=== PATIENT | male | born 1945 | race Caucasian/White ===

== ENCOUNTER 2017-09-23 10:16 | Inpatient (IN) | END 2017-09-25 07:31 | disposition short-term general hospital (02) | DRG 281 ==

== ENCOUNTER 2017-10-23 10:30 | Emergency (ER) | payer OTHER, MEDICARE ==
[~2017-10-23] VITALS: Ht 172.7 cm; Wt 161.0 kg
[~2017-10-23 10:30] MED LIST: AMLO10 PO; BENA20 PO; CLON.2TP PO; FARXIGA10 MG PO; FURO40 PO; Fish Oil300 MG PO; INSDET100 SC; INSLI100I SC; LIRA0.6P SC; METF850 PO; METO50 PO; Novolog Fl100 UNIT/1 SC; POTCIT10 PO; Paxil40 MG PO; Pravastatin Sod80 MG PO; SPIR50 PO; VITAMIN D35000 UNIT PO
[2017-10-23] MEDS ORDERED: ASPI81CH PO (10:39)
[2017-10-23] MEDS ORDERED: Fergon240 M1 (10:40)
[2017-10-23] MEDS ORDERED: ATOR80 PO (10:40)
[2017-10-23] MEDS ORDERED: NIFE60ER PO (10:41)
[2017-10-23] MEDS ORDERED: FURO80 PO (10:41)
[2017-10-23] MEDS ORDERED: CLOP75 PO (10:41)
[2017-10-23] MEDS ORDERED: METO2.5 PO (10:42)
[2017-10-23] MEDS ORDERED: CLON.1 PO (10:43)
[2017-10-23] MEDS ORDERED: CEFAZOLIN2 GM/50 ML IV (10:44)
[2017-10-23] MEDS ORDERED: Novolog100 UNIT/2 SC (10:44)
[2017-10-23] MEDS ORDERED: TRAM50 PO (10:45)
[2018-06-06] MEDS ORDERED: Nystatin15 GM TOP (16:25)
== END 2017-10-23 13:49 | disposition home or self-care (01) ==
LOC: ER 10:30
DX: Z02.89 Encounter for other administrative examinations (principal); E11.9 Type 2 diabetes mellitus without complications; R53.81 Other malaise; Z79.82 Long term (current) use of aspirin; Z79.899 Other long term (current) drug therapy; Z79.4 Long term (current) use of insulin; Z87.891 Personal history of nicotine dependence
CPT/HCPCS: 96361; 96374; 99283; J0690; J7030

== ENCOUNTER 2017-11-01 21:57 | Inpatient (IN) | payer OTHER, MEDICARE ==
[~2017-11-01] VITALS: Ht 172.7 cm; Wt 162.8 kg
[~2017-11-01 21:57] MED LIST changes: +ASPI81CH PO; +ATOR80 PO; +CEFAZOLIN2 GM/50 ML IV; +CLON.1 PO; +CLOP75 PO; +FURO80 PO; +Fergon240 M1; +METO100ER PO; +METO2.5 PO; -METO50 PO; +NIFE60ER PO; +Novolog100 UNIT/2 SC; +TRAM50 PO
[2017-11-01 22:33] LABS: BASOPHILS ABSOLUTE AUTO 0.04 K/mm3 (0.00-0.23); BASOPHILS PERCENT AUTO 0 % (0-2); EOSINOPHILS ABSOLUTE AUTO 0.14 K/mm3 (0.00-0.68); EOSINOPHILS PERCENT AUTO 1 % (0-6); Hematocrit 25.6 % (37.0-53.0); Hemoglobin 7.9 g/dL (13.5-17.5); IMMATURE GRAN ABSOLUTE AUTO 0.11 K/mm3 (0.00-0.10); IMMATURE GRAN PERCENT AUTO 1 % (0-1); LYMPHOCYTES ABSOLUTE AUTO 0.85 K/mm3 (0.84-5.20); LYMPHOCYTES PERCENT AUTO 6 % (21-46); MONOCYTES ABSOLUTE AUTO 1.56 K/mm3 (0.16-1.47); MONOCYTES PERCENT AUTO 11 % (4-13); Mean Corpuscular HGB Conc 30.9 g/dL (31.5-36.5); Mean Corpuscular Volume 91 fL (80-100); Mean Platelet Volume 10.3 fL (9.1-12.4); NEUTROPHILS ABSOLUTE AUTO 11.45 K/mm3 (1.96-9.15); NEUTROPHILS PERCENT AUTO 81 % (41-73); Platelet Count 381 K/mm3 (150-400); RDW Coefficient Variation 14.5 % (11.7-14.2); RDW Standard Deviation 47.8 fL (35.1-46.3); Red Blood Cell Count 2.82 M/mm3 (4.30-5.90); White Blood Cell Count 14.15 K/mm3 (4.00-11.30)
[2017-11-01 22:54] LABS: Albumin, Blood 2.2 g/dL (3.4-5.0); Albumin/Globulin Ratio 0.4 (0.8-1.8); Bilirubin, Total 0.3 mg/dL (0.1-1.0); Bun/Creatinine Ratio 42.5 (12.0-20.0); Calcium, Blood 8.3 mg/dL (8.5-10.1); Creatinine, Blood 1.6 mg/dL (0.60-1.20); Globulin, Blood 5.5 g/dL (2.2-4.0); Potassium, Blood 4.6 mmol/L (3.5-5.5); Total Protein, Blood 7.7 g/dL (6.4-8.2); Troponin I 0.119 ng/mL (0.000-0.040)
[2017-11-01 23:16] LABS: PCO2 Arterial 37.1 mmHg (35-45); PO2 Arterial 88.8 mmHg (80-100); pH Blood Arterial 7.46 (7.35-7.45)
[2017-11-01 23:16] LABS: International Normalized Ratio 1.17; Prothrombin Time Results 12.2 Sec (9.7-11.5)
[2017-11-01] MEDS ORDERED: TRAM50 PO (23:25)
[2017-11-02 06:20] LABS: BASOPHILS ABSOLUTE AUTO 0.03 K/mm3 (0.00-0.23); BASOPHILS PERCENT AUTO 0 % (0-2); EOSINOPHILS ABSOLUTE AUTO 0.05 K/mm3 (0.00-0.68); EOSINOPHILS PERCENT AUTO 0 % (0-6); Hematocrit 24.1 % (37.0-53.0); Hemoglobin 7.6 g/dL (13.5-17.5); IMMATURE GRAN ABSOLUTE AUTO 0.06 K/mm3 (0.00-0.10); IMMATURE GRAN PERCENT AUTO 1 % (0-1); LYMPHOCYTES ABSOLUTE AUTO 0.77 K/mm3 (0.84-5.20); LYMPHOCYTES PERCENT AUTO 7 % (21-46); MONOCYTES ABSOLUTE AUTO 1.33 K/mm3 (0.16-1.47); MONOCYTES PERCENT AUTO 12 % (4-13); Mean Corpuscular HGB 28.6 pg (26.0-34.0); Mean Corpuscular HGB Conc 31.5 g/dL (31.5-36.5); Mean Corpuscular Volume 91 fL (80-100); Mean Platelet Volume 10.4 fL (9.1-12.4); NEUTROPHILS PERCENT AUTO 81 % (41-73); Platelet Count 306 K/mm3 (150-400); RDW Coefficient Variation 14.6 % (11.7-14.2); RDW Standard Deviation 48.1 fL (35.1-46.3); Red Blood Cell Count 2.66 M/mm3 (4.30-5.90); White Blood Cell Count 11.44 K/mm3 (4.00-11.30)
[2017-11-02 06:42] LABS: Albumin, Blood 1.9 g/dL (3.4-5.0); Albumin/Globulin Ratio 0.4 (0.8-1.8); Bilirubin, Total 0.3 mg/dL (0.1-1.0); Bun/Creatinine Ratio 37.9 (12.0-20.0); Calcium, Blood 8.1 mg/dL (8.5-10.1); Creatinine, Blood 1.74 mg/dL (0.60-1.20); Globulin, Blood 5.2 g/dL (2.2-4.0); Potassium, Blood 4.7 mmol/L (3.5-5.5); Total Protein, Blood 7.1 g/dL (6.4-8.2)
[2017-11-02 07:34] LABS: Troponin I 0.096 ng/mL (0.000-0.040)
[2017-11-02 16:26] LABS: Troponin I 0.071 ng/mL (0.000-0.040)
[2017-11-02 17:31] LABS: Source, Urine Clean Catch
[2017-11-02 17:36] LABS: Appearance, Urine Clear (Clear); Bilirubin, Urine Neg (Neg); Blood, Urine 2+ (Neg); Color, Urine Yellow (P-Yellow); Glucose Qualitative, Urine Neg (Neg); Ketones, Urine Neg (Neg); Leukocyte Esterase, Urine 1+ (Neg); Nitrite, Urine Neg (Neg); Protein, Urine 3+ (Neg); Specific Gravity, Urine 1.015 (1.003-1.022); Urobilinogen, Urine NORM (Normal)
[2017-11-02 17:44] LABS: Bacteria Few /hpf; Red Blood Cells, Urine 0-2 /hpf (0-2); Squamous Epithelial Cells Not Seen /hpf (Few); White Blood Cells, Urine 0-2 /hpf (0-5)
[2017-11-03 04:59] LABS: BASOPHILS ABSOLUTE AUTO 0.02 K/mm3 (0.00-0.23); BASOPHILS PERCENT AUTO 0 % (0-2); EOSINOPHILS ABSOLUTE AUTO 0.17 K/mm3 (0.00-0.68); EOSINOPHILS PERCENT AUTO 1 % (0-6); Hematocrit 23.4 % (37.0-53.0); Hemoglobin 7.1 g/dL (13.5-17.5); IMMATURE GRAN ABSOLUTE AUTO 0.08 K/mm3 (0.00-0.10); IMMATURE GRAN PERCENT AUTO 1 % (0-1); LYMPHOCYTES ABSOLUTE AUTO 0.74 K/mm3 (0.84-5.20); LYMPHOCYTES PERCENT AUTO 6 % (21-46); MONOCYTES ABSOLUTE AUTO 1.43 K/mm3 (0.16-1.47); MONOCYTES PERCENT AUTO 12 % (4-13); Mean Corpuscular HGB Conc 30.3 g/dL (31.5-36.5); Mean Corpuscular Volume 92 fL (80-100); Mean Platelet Volume 10.5 fL (9.1-12.4); NEUTROPHILS ABSOLUTE AUTO 9.47 K/mm3 (1.96-9.15); NEUTROPHILS PERCENT AUTO 80 % (41-73); Platelet Count 311 K/mm3 (150-400); RDW Coefficient Variation 14.6 % (11.7-14.2); RDW Standard Deviation 49.1 fL (35.1-46.3); Red Blood Cell Count 2.54 M/mm3 (4.30-5.90); White Blood Cell Count 11.91 K/mm3 (4.00-11.30)
[2017-11-03 05:17] LABS: Albumin, Blood 1.9 g/dL (3.4-5.0); Albumin/Globulin Ratio 0.4 (0.8-1.8); Bilirubin, Total 0.5 mg/dL (0.1-1.0); Bun/Creatinine Ratio 30.4 (12.0-20.0); Calcium, Blood 8.4 mg/dL (8.5-10.1); Creatinine, Blood 2.4 mg/dL (0.60-1.20); Potassium, Blood 4.7 mmol/L (3.5-5.5); Total Protein, Blood 6.9 g/dL (6.4-8.2)
[2017-11-04 02:54] LABS: BASOPHILS ABSOLUTE AUTO 0.03 K/mm3 (0.00-0.23); BASOPHILS PERCENT AUTO 0 % (0-2); EOSINOPHILS ABSOLUTE AUTO 0.16 K/mm3 (0.00-0.68); EOSINOPHILS PERCENT AUTO 1 % (0-6); Hematocrit 22.6 % (37.0-53.0); Hemoglobin 7.2 g/dL (13.5-17.5); IMMATURE GRAN ABSOLUTE AUTO 0.04 K/mm3 (0.00-0.10); IMMATURE GRAN PERCENT AUTO 0 % (0-1); LYMPHOCYTES ABSOLUTE AUTO 0.91 K/mm3 (0.84-5.20); LYMPHOCYTES PERCENT AUTO 8 % (21-46); MONOCYTES ABSOLUTE AUTO 1.16 K/mm3 (0.16-1.47); MONOCYTES PERCENT AUTO 10 % (4-13); Mean Corpuscular HGB 28.9 pg (26.0-34.0); Mean Corpuscular HGB Conc 31.9 g/dL (31.5-36.5); Mean Corpuscular Volume 91 fL (80-100); Mean Platelet Volume 10.6 fL (9.1-12.4); NEUTROPHILS ABSOLUTE AUTO 8.83 K/mm3 (1.96-9.15); NEUTROPHILS PERCENT AUTO 79 % (41-73); Platelet Count 283 K/mm3 (150-400); RDW Coefficient Variation 14.6 % (11.7-14.2); RDW Standard Deviation 48.2 fL (35.1-46.3); Red Blood Cell Count 2.49 M/mm3 (4.30-5.90); White Blood Cell Count 11.13 K/mm3 (4.00-11.30)
[2017-11-04 03:11] LABS: Bun/Creatinine Ratio 30.5 (12.0-20.0); Calcium, Blood 8.4 mg/dL (8.5-10.1); Creatinine, Blood 2.66 mg/dL (0.60-1.20); Potassium, Blood 4.8 mmol/L (3.5-5.5)
[2017-11-04 11:17] LABS: Hematocrit 26.4 % (37.0-53.0); Hemoglobin 8.3 g/dL (13.5-17.5)
[2017-11-05 00:20] LABS: Hematocrit 27.6 % (37.0-53.0); Hemoglobin 8.9 g/dL (13.5-17.5)
[2017-11-05 04:36] LABS: BASOPHILS ABSOLUTE AUTO 0.02 K/mm3 (0.00-0.23); BASOPHILS PERCENT AUTO 0 % (0-2); EOSINOPHILS ABSOLUTE AUTO 0.03 K/mm3 (0.00-0.68); EOSINOPHILS PERCENT AUTO 0 % (0-6); Hematocrit 25.1 % (37.0-53.0); IMMATURE GRAN ABSOLUTE AUTO 0.06 K/mm3 (0.00-0.10); IMMATURE GRAN PERCENT AUTO 1 % (0-1); LYMPHOCYTES ABSOLUTE AUTO 0.44 K/mm3 (0.84-5.20); LYMPHOCYTES PERCENT AUTO 4 % (21-46); MONOCYTES ABSOLUTE AUTO 0.95 K/mm3 (0.16-1.47); MONOCYTES PERCENT AUTO 8 % (4-13); Mean Corpuscular HGB 28.5 pg (26.0-34.0); Mean Corpuscular HGB Conc 31.9 g/dL (31.5-36.5); Mean Corpuscular Volume 89 fL (80-100); Mean Platelet Volume 10.4 fL (9.1-12.4); NEUTROPHILS ABSOLUTE AUTO 11.02 K/mm3 (1.96-9.15); NEUTROPHILS PERCENT AUTO 88 % (41-73); Platelet Count 274 K/mm3 (150-400); RDW Coefficient Variation 14.7 % (11.7-14.2); RDW Standard Deviation 48.3 fL (35.1-46.3); Red Blood Cell Count 2.81 M/mm3 (4.30-5.90); White Blood Cell Count 12.52 K/mm3 (4.00-11.30)
[2017-11-05 04:55] LABS: Bun/Creatinine Ratio 31.4 (12.0-20.0); Calcium, Blood 8.5 mg/dL (8.5-10.1); Creatinine, Blood 2.87 mg/dL (0.60-1.20); Potassium, Blood 4.9 mmol/L (3.5-5.5)
== END 2017-11-05 22:25 | disposition short-term general hospital (02) | DRG 291 ==
LOC: ER 21:57 → ERHOLD 23:05 → PCU 23:05
PROVIDERS: Emergency Medicine; Family Medicine; Internal Medicine
PROC: 30233N1 Transfusion of Nonautologous Red Blood Cells into Peripheral Vein, Percutaneous Approach (ICD-10-PCS; principal; 2017-11-03)
DX: I13.0 Hypertensive heart and chronic kidney disease with heart failure and stage 1 through stage 4 chronic kidney disease, or unspecified chronic kidney disease (principal); I50.43 Acute on chronic combined systolic (congestive) and diastolic (congestive) heart failure; J96.21 Acute and chronic respiratory failure with hypoxia; N17.9 Acute kidney failure, unspecified; Z68.43 Body mass index [BMI] 50.0-59.9, adult; N13.8 Other obstructive and reflux uropathy; N18.3 Chronic kidney disease, stage 3 (moderate); I25.10 Atherosclerotic heart disease of native coronary artery without angina pectoris; Z98.61 Coronary angioplasty status; Z89.431 Acquired absence of right foot; E66.01 Morbid (severe) obesity due to excess calories; G47.33 Obstructive sleep apnea (adult) (pediatric); D63.1 Anemia in chronic kidney disease; I25.5 Ischemic cardiomyopathy; E11.22 Type 2 diabetes mellitus with diabetic chronic kidney disease; Z79.4 Long term (current) use of insulin; Z79.82 Long term (current) use of aspirin
CPT/HCPCS: 36415; 36430; 36600; 51700; 51702; 71045; 74176; 76770; 80048; 80053; 81001; 82550; 82803; 82947; 83605; 83880; 84145; 84484; 85014; 85018; 85025; 85610; 85730; 86850; 86900; 86901; 86923; 87040; 87086; 93005; 93010; 93306; 94640; 94660; 94762; 96365; 96366; 96372; 96375; 96376; 97110; 97161; 99285; G8978; G8979; J0690; J1650; J1815; J1940; J1956; J2060; J2543; J3010; J7030; P9016

== ENCOUNTER 2017-11-25 16:08 | Inpatient (IN) | payer OTHER, MEDICARE ==
[~2017-11-25] VITALS: Ht 172.7 cm; Wt 152.5 kg
[~2017-11-25 16:08] MED LIST changes: -METO100ER PO; +METO50 PO
[2017-11-25 17:14] LABS: BASOPHILS ABSOLUTE AUTO 0.04 K/mm3 (0.00-0.23); BASOPHILS PERCENT AUTO 0 % (0-2); EOSINOPHILS PERCENT AUTO 2 % (0-6); Hematocrit 27.6 % (37.0-53.0); Hemoglobin 8.4 g/dL (13.5-17.5); IMMATURE GRAN ABSOLUTE AUTO 0.04 K/mm3 (0.00-0.10); IMMATURE GRAN PERCENT AUTO 0 % (0-1); LYMPHOCYTES ABSOLUTE AUTO 0.72 K/mm3 (0.84-5.20); LYMPHOCYTES PERCENT AUTO 7 % (21-46); MONOCYTES ABSOLUTE AUTO 0.95 K/mm3 (0.16-1.47); MONOCYTES PERCENT AUTO 9 % (4-13); Mean Corpuscular HGB 27.8 pg (26.0-34.0); Mean Corpuscular HGB Conc 30.4 g/dL (31.5-36.5); Mean Corpuscular Volume 91 fL (80-100); Mean Platelet Volume 10.7 fL (9.1-12.4); NEUTROPHILS ABSOLUTE AUTO 8.27 K/mm3 (1.96-9.15); NEUTROPHILS PERCENT AUTO 81 % (41-73); Platelet Count 366 K/mm3 (150-400); RDW Coefficient Variation 14.6 % (11.7-14.2); RDW Standard Deviation 48.8 fL (35.1-46.3); Red Blood Cell Count 3.02 M/mm3 (4.30-5.90); White Blood Cell Count 10.22 K/mm3 (4.00-11.30)
[2017-11-25 17:28] LABS: International Normalized Ratio 1.18; Prothrombin Time Results 12.3 Sec (9.7-11.5)
[2017-11-25 17:32] LABS: PCO2 Arterial 44.7 mmHg (35-45); PO2 Arterial 65.4 mmHg (80-100); pH Blood Arterial 7.45 (7.35-7.45)
[2017-11-25 17:36] LABS: Alanine Aminotransfer (ALT/SGP 7 U/L (12-78); Albumin, Blood 2.4 g/dL (3.4-5.0); Albumin/Globulin Ratio 0.5 (0.8-1.8); Alk Phos 98 U/L (50-136); Anion Gap 4 mmol/L (6-16); Aspartate Aminotrans (AST/SGOT 10 U/L (12-37); Bilirubin, Total 0.4 mg/dL (0.1-1.0); Blood Urea Nitrogen 52 mg/dL (8-24); Bun/Creatinine Ratio 46.4 (12.0-20.0); CO2, Blood 31 mmol/L (21-32); Calcium, Blood 8.5 mg/dL (8.5-10.1); Chloride, Blood 101 mmol/L (98-108); Creatinine, Blood 1.12 mg/dL (0.60-1.20); Globulin, Blood 5.1 g/dL (2.2-4.0); Glomerular Filtration Rate >60 (60-); Glucose, Blood 179 mg/dL (70-99); Potassium, Blood 4.4 mmol/L (3.5-5.5); Sodium, Blood 136 mmol/L (136-145); Total Protein, Blood 7.5 g/dL (6.4-8.2); Troponin I <0.015 ng/mL (0.000-0.040)
[2017-11-26] MEDS ORDERED: ELIQUIS5 M1 PO (01:02)
[2017-11-26] MEDS ORDERED: TAMS.4ER PO (01:03)
[2017-11-26] MEDS ORDERED: TORSE20 PO (01:03)
[2017-11-26] MEDS ORDERED: Acidophilus La100 GM (01:07)
[2017-11-26] MEDS ORDERED: ASCO500 PO (01:07)
[2017-11-26] MEDS ORDERED: DOCU100 PO (01:08)
[2017-11-26] MEDS ORDERED: NITR.4SL SL (01:11)
[2017-11-26] MEDS ORDERED: OXYM.05NI (01:12)
[2017-11-26] MEDS ORDERED: PRAV20 PO (01:15)
[2017-11-26 04:37] LABS: BASOPHILS ABSOLUTE AUTO 0.05 K/mm3 (0.00-0.23); BASOPHILS PERCENT AUTO 1 % (0-2); EOSINOPHILS ABSOLUTE AUTO 0.28 K/mm3 (0.00-0.68); EOSINOPHILS PERCENT AUTO 3 % (0-6); Hematocrit 28.9 % (37.0-53.0); Hemoglobin 8.7 g/dL (13.5-17.5); IMMATURE GRAN ABSOLUTE AUTO 0.05 K/mm3 (0.00-0.10); IMMATURE GRAN PERCENT AUTO 1 % (0-1); LYMPHOCYTES ABSOLUTE AUTO 0.88 K/mm3 (0.84-5.20); LYMPHOCYTES PERCENT AUTO 8 % (21-46); MONOCYTES ABSOLUTE AUTO 1.12 K/mm3 (0.16-1.47); MONOCYTES PERCENT AUTO 10 % (4-13); Mean Corpuscular HGB 27.4 pg (26.0-34.0); Mean Corpuscular HGB Conc 30.1 g/dL (31.5-36.5); Mean Corpuscular Volume 91 fL (80-100); Mean Platelet Volume 10.8 fL (9.1-12.4); NEUTROPHILS ABSOLUTE AUTO 8.71 K/mm3 (1.96-9.15); NEUTROPHILS PERCENT AUTO 79 % (41-73); Platelet Count 383 K/mm3 (150-400); RDW Coefficient Variation 14.6 % (11.7-14.2); RDW Standard Deviation 48.5 fL (35.1-46.3); Red Blood Cell Count 3.18 M/mm3 (4.30-5.90); White Blood Cell Count 11.09 K/mm3 (4.00-11.30)
[2017-11-26 05:19] LABS: Percent Saturation 12.4 % (20.0-50.0)
[2017-11-26 05:20] LABS: Anion Gap 9 mmol/L (6-16); Blood Urea Nitrogen 49 mg/dL (8-24); CO2, Blood 30 mmol/L (21-32); Calcium, Blood 8.7 mg/dL (8.5-10.1); Chloride, Blood 100 mmol/L (98-108); Creatinine, Blood 1.02 mg/dL (0.60-1.20); Glomerular Filtration Rate >60 (60-); Glucose, Blood 131 mg/dL (70-99); Potassium, Blood 3.9 mmol/L (3.5-5.5); Sodium, Blood 139 mmol/L (136-145); Thyroid Stimulating Hormone 0.675 uIU/mL (0.360-4.800)
[2017-11-27 11:28] LABS: BASOPHILS ABSOLUTE AUTO 0.05 K/mm3 (0.00-0.23); BASOPHILS PERCENT AUTO 0 % (0-2); EOSINOPHILS ABSOLUTE AUTO 0.16 K/mm3 (0.00-0.68); EOSINOPHILS PERCENT AUTO 1 % (0-6); Hematocrit 28.9 % (37.0-53.0); IMMATURE GRAN ABSOLUTE AUTO 0.05 K/mm3 (0.00-0.10); IMMATURE GRAN PERCENT AUTO 0 % (0-1); LYMPHOCYTES ABSOLUTE AUTO 0.52 K/mm3 (0.84-5.20); LYMPHOCYTES PERCENT AUTO 4 % (21-46); MONOCYTES ABSOLUTE AUTO 1.23 K/mm3 (0.16-1.47); MONOCYTES PERCENT AUTO 10 % (4-13); Mean Corpuscular HGB Conc 31.1 g/dL (31.5-36.5); Mean Corpuscular Volume 90 fL (80-100); Mean Platelet Volume 10.8 fL (9.1-12.4); NEUTROPHILS ABSOLUTE AUTO 10.32 K/mm3 (1.96-9.15); NEUTROPHILS PERCENT AUTO 84 % (41-73); Platelet Count 352 K/mm3 (150-400); RDW Standard Deviation 48.6 fL (35.1-46.3); Red Blood Cell Count 3.22 M/mm3 (4.30-5.90); White Blood Cell Count 12.33 K/mm3 (4.00-11.30)
[2017-11-27 11:39] LABS: Anion Gap 6 mmol/L (6-16); Blood Urea Nitrogen 47 mg/dL (8-24); Bun/Creatinine Ratio 43.1 (12.0-20.0); CO2, Blood 32 mmol/L (21-32); Calcium, Blood 8.6 mg/dL (8.5-10.1); Chloride, Blood 99 mmol/L (98-108); Creatinine, Blood 1.09 mg/dL (0.60-1.20); Glomerular Filtration Rate >60 (60-); Glucose, Blood 208 mg/dL (70-99); Sodium, Blood 137 mmol/L (136-145)
[2017-11-28 10:00] LABS: BASOPHILS ABSOLUTE AUTO 0.04 K/mm3 (0.00-0.23); BASOPHILS PERCENT AUTO 0 % (0-2); EOSINOPHILS ABSOLUTE AUTO 0.05 K/mm3 (0.00-0.68); EOSINOPHILS PERCENT AUTO 0 % (0-6); Hematocrit 27.4 % (37.0-53.0); Hemoglobin 8.5 g/dL (13.5-17.5); IMMATURE GRAN ABSOLUTE AUTO 0.05 K/mm3 (0.00-0.10); IMMATURE GRAN PERCENT AUTO 0 % (0-1); LYMPHOCYTES ABSOLUTE AUTO 0.55 K/mm3 (0.84-5.20); LYMPHOCYTES PERCENT AUTO 4 % (21-46); MONOCYTES ABSOLUTE AUTO 1.37 K/mm3 (0.16-1.47); MONOCYTES PERCENT AUTO 11 % (4-13); Mean Corpuscular HGB 27.2 pg (26.0-34.0); Mean Corpuscular Volume 88 fL (80-100); NEUTROPHILS ABSOLUTE AUTO 10.39 K/mm3 (1.96-9.15); NEUTROPHILS PERCENT AUTO 84 % (41-73); Platelet Count 322 K/mm3 (150-400); RDW Coefficient Variation 15.2 % (11.7-14.2); RDW Standard Deviation 48.6 fL (35.1-46.3); Red Blood Cell Count 3.13 M/mm3 (4.30-5.90); White Blood Cell Count 12.45 K/mm3 (4.00-11.30)
[2017-11-28 10:13] LABS: Anion Gap 6 mmol/L (6-16); Blood Urea Nitrogen 45 mg/dL (8-24); Bun/Creatinine Ratio 41.3 (12.0-20.0); CO2, Blood 31 mmol/L (21-32); Calcium, Blood 8.5 mg/dL (8.5-10.1); Chloride, Blood 96 mmol/L (98-108); Creatinine, Blood 1.09 mg/dL (0.60-1.20); Glomerular Filtration Rate >60 (60-); Glucose, Blood 245 mg/dL (70-99); Sodium, Blood 133 mmol/L (136-145)
[2017-11-28 20:51] LABS: Source, Urine Catheter
[2017-11-28 20:54] LABS: Appearance, Urine Cloudy (Clear); Bilirubin, Urine Neg (Neg); Blood, Urine 5+ (Neg); Color, Urine Yellow (P-Yellow); Glucose Qualitative, Urine 2+ (Neg); Ketones, Urine Neg (Neg); Leukocyte Esterase, Urine 3+ (Neg); Nitrite, Urine Pos (Neg); Protein, Urine 4+ (Neg); Urobilinogen, Urine NORM (Normal)
[2017-11-28 21:08] LABS: Amorphous Mod (0-Heavy); Bacteria Many /hpf; Hyaline Casts 0-2 /lpf (0-2); Red Blood Cells, Urine 0-2 /hpf (0-2); Squamous Epithelial Cells Few /hpf (Few); White Blood Cells, Urine TNTC /hpf (0-5)
[2017-11-29 04:57] LABS: BASOPHILS ABSOLUTE AUTO 0.02 K/mm3 (0.00-0.23); BASOPHILS PERCENT AUTO 0 % (0-2); EOSINOPHILS ABSOLUTE AUTO 0.05 K/mm3 (0.00-0.68); EOSINOPHILS PERCENT AUTO 0 % (0-6); Hematocrit 28.6 % (37.0-53.0); IMMATURE GRAN ABSOLUTE AUTO 0.04 K/mm3 (0.00-0.10); IMMATURE GRAN PERCENT AUTO 0 % (0-1); LYMPHOCYTES ABSOLUTE AUTO 0.55 K/mm3 (0.84-5.20); LYMPHOCYTES PERCENT AUTO 5 % (21-46); MONOCYTES ABSOLUTE AUTO 1.19 K/mm3 (0.16-1.47); MONOCYTES PERCENT AUTO 11 % (4-13); Mean Corpuscular HGB 27.9 pg (26.0-34.0); Mean Corpuscular HGB Conc 31.5 g/dL (31.5-36.5); Mean Corpuscular Volume 89 fL (80-100); Mean Platelet Volume 10.6 fL (9.1-12.4); NEUTROPHILS ABSOLUTE AUTO 9.32 K/mm3 (1.96-9.15); NEUTROPHILS PERCENT AUTO 83 % (41-73); Platelet Count 300 K/mm3 (150-400); RDW Coefficient Variation 14.8 % (11.7-14.2); RDW Standard Deviation 48.3 fL (35.1-46.3); Red Blood Cell Count 3.23 M/mm3 (4.30-5.90); White Blood Cell Count 11.17 K/mm3 (4.00-11.30)
[2017-11-29 05:15] LABS: Albumin, Blood 1.9 g/dL (3.4-5.0); Albumin/Globulin Ratio 0.4 (0.8-1.8); Bilirubin, Total 0.6 mg/dL (0.1-1.0); Bun/Creatinine Ratio 34.8 (12.0-20.0); Calcium, Blood 8.4 mg/dL (8.5-10.1); Creatinine, Blood 1.35 mg/dL (0.60-1.20); Globulin, Blood 4.9 g/dL (2.2-4.0); Potassium, Blood 4.2 mmol/L (3.5-5.5); Total Protein, Blood 6.8 g/dL (6.4-8.2)
[2017-11-29 10:58] LABS: BASOPHILS ABSOLUTE AUTO 0.03 K/mm3 (0.00-0.23); BASOPHILS PERCENT AUTO 0 % (0-2); EOSINOPHILS ABSOLUTE AUTO 0.04 K/mm3 (0.00-0.68); EOSINOPHILS PERCENT AUTO 0 % (0-6); Hematocrit 26.7 % (37.0-53.0); Hemoglobin 8.2 g/dL (13.5-17.5); IMMATURE GRAN ABSOLUTE AUTO 0.05 K/mm3 (0.00-0.10); IMMATURE GRAN PERCENT AUTO 0 % (0-1); LYMPHOCYTES ABSOLUTE AUTO 0.49 K/mm3 (0.84-5.20); LYMPHOCYTES PERCENT AUTO 4 % (21-46); MONOCYTES ABSOLUTE AUTO 1.13 K/mm3 (0.16-1.47); MONOCYTES PERCENT AUTO 10 % (4-13); Mean Corpuscular HGB 27.4 pg (26.0-34.0); Mean Corpuscular HGB Conc 30.7 g/dL (31.5-36.5); Mean Corpuscular Volume 89 fL (80-100); Mean Platelet Volume 11.1 fL (9.1-12.4); NEUTROPHILS ABSOLUTE AUTO 9.57 K/mm3 (1.96-9.15); NEUTROPHILS PERCENT AUTO 85 % (41-73); Platelet Count 305 K/mm3 (150-400); RDW Coefficient Variation 14.8 % (11.7-14.2); Red Blood Cell Count 2.99 M/mm3 (4.30-5.90); White Blood Cell Count 11.31 K/mm3 (4.00-11.30)
[2017-11-29 11:08] LABS: Bun/Creatinine Ratio 35.9 (12.0-20.0); Calcium, Blood 8.5 mg/dL (8.5-10.1); Creatinine, Blood 1.31 mg/dL (0.60-1.20); Potassium, Blood 4.2 mmol/L (3.5-5.5)
[2017-11-30 12:58] LABS: Magnesium, Blood 1.9 mg/dL (1.6-2.4)
[2017-11-30 12:59] LABS: Albumin, Blood 1.7 g/dL (3.4-5.0); Anion Gap 7 mmol/L (6-16); Blood Urea Nitrogen 55 mg/dL (8-24); CO2, Blood 31 mmol/L (21-32); Calcium, Blood 8.5 mg/dL (8.5-10.1); Chloride, Blood 97 mmol/L (98-108); Creatinine, Blood 1.34 mg/dL (0.60-1.20); Glomerular Filtration Rate 56 (60-); Glucose, Blood 180 mg/dL (70-99); Phosphorus, Blood 4.4 mg/dL (2.5-4.9); Potassium, Blood 4.2 mmol/L (3.5-5.5); Sodium, Blood 135 mmol/L (136-145)
[2017-12-01 04:24] LABS: Hemoglobin 8.5 g/dL (13.5-17.5)
[2017-12-01 04:43] LABS: Alanine Aminotransfer (ALT/SGP 48 U/L (12-78); Albumin, Blood 1.8 g/dL (3.4-5.0); Albumin/Globulin Ratio 0.4 (0.8-1.8); Alk Phos 144 U/L (50-136); Anion Gap 8 mmol/L (6-16); Aspartate Aminotrans (AST/SGOT 57 U/L (12-37); Bilirubin, Total 0.3 mg/dL (0.1-1.0); Blood Urea Nitrogen 62 mg/dL (8-24); Bun/Creatinine Ratio 41.3 (12.0-20.0); CO2, Blood 32 mmol/L (21-32); Calcium, Blood 8.5 mg/dL (8.5-10.1); Chloride, Blood 97 mmol/L (98-108); Globulin, Blood 4.8 g/dL (2.2-4.0); Glomerular Filtration Rate 49 (60-); Glucose, Blood 140 mg/dL (70-99); Potassium, Blood 3.8 mmol/L (3.5-5.5); Sodium, Blood 137 mmol/L (136-145); Total Protein, Blood 6.6 g/dL (6.4-8.2)
[2017-12-01 18:00] LABS: Protein, Urine Quantitative 44.5 mg/dL (0.0-11.9)
[2017-12-02 05:17] LABS: Hematocrit 24.2 % (37.0-53.0); Hemoglobin 7.4 g/dL (13.5-17.5)
[2017-12-02 05:40] LABS: Albumin, Blood 2.1 g/dL (3.4-5.0); Anion Gap 7 mmol/L (6-16); Blood Urea Nitrogen 66 mg/dL (8-24); Bun/Creatinine Ratio 44.3 (12.0-20.0); CO2, Blood 32 mmol/L (21-32); Calcium, Blood 8.7 mg/dL (8.5-10.1); Chloride, Blood 95 mmol/L (98-108); Creatinine, Blood 1.49 mg/dL (0.60-1.20); Glomerular Filtration Rate 49 (60-); Glucose, Blood 170 mg/dL (70-99); Magnesium, Blood 1.9 mg/dL (1.6-2.4); Phosphorus, Blood 3.5 mg/dL (2.5-4.9); Potassium, Blood 3.3 mmol/L (3.5-5.5); Sodium, Blood 134 mmol/L (136-145)
[2017-12-03 05:15] LABS: BASOPHILS ABSOLUTE AUTO 0.03 K/mm3 (0.00-0.23); BASOPHILS PERCENT AUTO 0 % (0-2); EOSINOPHILS ABSOLUTE AUTO 0.46 K/mm3 (0.00-0.68); EOSINOPHILS PERCENT AUTO 6 % (0-6); Hemoglobin 8.7 g/dL (13.5-17.5); IMMATURE GRAN ABSOLUTE AUTO 0.04 K/mm3 (0.00-0.10); IMMATURE GRAN PERCENT AUTO 1 % (0-1); LYMPHOCYTES ABSOLUTE AUTO 0.83 K/mm3 (0.84-5.20); LYMPHOCYTES PERCENT AUTO 11 % (21-46); MONOCYTES ABSOLUTE AUTO 0.91 K/mm3 (0.16-1.47); MONOCYTES PERCENT AUTO 12 % (4-13); Mean Corpuscular HGB 28.2 pg (26.0-34.0); Mean Corpuscular HGB Conc 32.2 g/dL (31.5-36.5); Mean Corpuscular Volume 87 fL (80-100); Mean Platelet Volume 10.7 fL (9.1-12.4); NEUTROPHILS ABSOLUTE AUTO 5.66 K/mm3 (1.96-9.15); NEUTROPHILS PERCENT AUTO 71 % (41-73); Platelet Count 297 K/mm3 (150-400); RDW Coefficient Variation 15.1 % (11.7-14.2); RDW Standard Deviation 48.5 fL (35.1-46.3); Red Blood Cell Count 3.09 M/mm3 (4.30-5.90); White Blood Cell Count 7.93 K/mm3 (4.00-11.30)
[2017-12-03 05:31] LABS: Alanine Aminotransfer (ALT/SGP 47 U/L (12-78); Albumin, Blood 2.4 g/dL (3.4-5.0); Albumin/Globulin Ratio 0.5 (0.8-1.8); Alk Phos 160 U/L (50-136); Anion Gap 4 mmol/L (6-16); Aspartate Aminotrans (AST/SGOT 30 U/L (12-37); Bilirubin, Total 0.9 mg/dL (0.1-1.0); Blood Urea Nitrogen 66 mg/dL (8-24); Bun/Creatinine Ratio 47.5 (12.0-20.0); CO2, Blood 35 mmol/L (21-32); Chloride, Blood 95 mmol/L (98-108); Creatinine, Blood 1.39 mg/dL (0.60-1.20); Globulin, Blood 4.7 g/dL (2.2-4.0); Glomerular Filtration Rate 53 (60-); Glucose, Blood 175 mg/dL (70-99); Magnesium, Blood 1.9 mg/dL (1.6-2.4); Phosphorus, Blood 3.4 mg/dL (2.5-4.9); Potassium, Blood 3.5 mmol/L (3.5-5.5); Sodium, Blood 134 mmol/L (136-145); Total Protein, Blood 7.1 g/dL (6.4-8.2)
[2017-12-04 06:42] LABS: BASOPHILS ABSOLUTE AUTO 0.03 K/mm3 (0.00-0.23); BASOPHILS PERCENT AUTO 0 % (0-2); EOSINOPHILS PERCENT AUTO 3 % (0-6); Hematocrit 29.2 % (37.0-53.0); Hemoglobin 9.3 g/dL (13.5-17.5); IMMATURE GRAN ABSOLUTE AUTO 0.05 K/mm3 (0.00-0.10); IMMATURE GRAN PERCENT AUTO 1 % (0-1); LYMPHOCYTES PERCENT AUTO 8 % (21-46); MONOCYTES ABSOLUTE AUTO 0.93 K/mm3 (0.16-1.47); MONOCYTES PERCENT AUTO 10 % (4-13); Mean Corpuscular HGB 27.5 pg (26.0-34.0); Mean Corpuscular HGB Conc 31.8 g/dL (31.5-36.5); Mean Corpuscular Volume 86 fL (80-100); Mean Platelet Volume 10.8 fL (9.1-12.4); NEUTROPHILS ABSOLUTE AUTO 7.32 K/mm3 (1.96-9.15); NEUTROPHILS PERCENT AUTO 79 % (41-73); Platelet Count 311 K/mm3 (150-400); RDW Coefficient Variation 14.7 % (11.7-14.2); RDW Standard Deviation 46.9 fL (35.1-46.3); Red Blood Cell Count 3.38 M/mm3 (4.30-5.90); White Blood Cell Count 9.33 K/mm3 (4.00-11.30)
[2017-12-04 07:01] LABS: Albumin, Blood 2.7 g/dL (3.4-5.0); Anion Gap 8 mmol/L (6-16); Blood Urea Nitrogen 66 mg/dL (8-24); Bun/Creatinine Ratio 49.3 (12.0-20.0); CO2, Blood 35 mmol/L (21-32); Calcium, Blood 9.3 mg/dL (8.5-10.1); Chloride, Blood 93 mmol/L (98-108); Creatinine, Blood 1.34 mg/dL (0.60-1.20); Glomerular Filtration Rate 56 (60-); Glucose, Blood 197 mg/dL (70-99); Magnesium, Blood 1.9 mg/dL (1.6-2.4); Phosphorus, Blood 3.2 mg/dL (2.5-4.9); Potassium, Blood 3.5 mmol/L (3.5-5.5); Sodium, Blood 136 mmol/L (136-145)
[2017-12-04 08:08] LABS: Stool Occult Bld Immuno 1 Negative (NEGATIVE)
[2017-12-04] MEDS ORDERED: ATOR80 PO (13:35)
[2017-12-04] MEDS ORDERED: ACET500 PO (13:35)
[2017-12-04] MEDS ORDERED: INSU100I6 (13:37)
[2017-12-04] MEDS ORDERED: CARV25 PO (13:37)
[2017-12-04] MEDS ORDERED: LISI5 PO (13:38)
[2017-12-04] MEDS ORDERED: LEVFLO500 PO (13:39)
[2017-12-04] MEDS ORDERED: METO2.5 PO (13:40)
[2017-12-04] MEDS ORDERED: SPIR25 PO (13:41)
[2017-12-04] MEDS ORDERED: Micro-K10 MEQ PO (13:41)
== END 2017-12-04 15:47 | disposition home health service (06) | DRG 291 ==
LOC: ER 16:08 → PCU 18:17 → MEDS 12-01 23:20 → ENPENDDIS 12-04 12:00 → MEDS 12-04 15:47
PROVIDERS: Internal Medicine; Internal Medicine Endocrinology, Diabetes & Metabolism; Internal Medicine Interventional Cardiology; Internal Medicine Nephrology; Physician Assistant
DX: I13.0 Hypertensive heart and chronic kidney disease with heart failure and stage 1 through stage 4 chronic kidney disease, or unspecified chronic kidney disease (principal); A41.50 Gram-negative sepsis, unspecified; I50.43 Acute on chronic combined systolic (congestive) and diastolic (congestive) heart failure; J96.01 Acute respiratory failure with hypoxia; T83.511A Infection and inflammatory reaction due to indwelling urethral catheter, initial encounter; N17.9 Acute kidney failure, unspecified; Z68.43 Body mass index [BMI] 50.0-59.9, adult; N39.0 Urinary tract infection, site not specified; N18.3 Chronic kidney disease, stage 3 (moderate); E66.01 Morbid (severe) obesity due to excess calories; G47.33 Obstructive sleep apnea (adult) (pediatric); E11.9 Type 2 diabetes mellitus without complications; Z79.4 Long term (current) use of insulin; D63.1 Anemia in chronic kidney disease; I25.10 Atherosclerotic heart disease of native coronary artery without angina pectoris
CPT/HCPCS: 36430; 36600; 71045; 71046; 76770; 80048; 80053; 80069; 81001; 81050; 82274; 82728; 82803; 82947; 83540; 83550; 83735; 83880; 84100; 84156; 84443; 84484; 85014; 85018; 85025; 85610; 86850; 86900; 86901; 86923; 87040; 87077; 87086; 87186; 93005; 93010; 94660; 94762; 96374; 97110; 97163; 97167; 97530; 97535; 99285; G8978; G8979; G8987; G8988; J0696; J0881; J1650; J1815; J1940; J1956; J2405; J3010; J7030; P9016; P9041

== ENCOUNTER → 2017-12-28 | Outpatient (CLI) | payer OTHER, MEDICARE ==
[~2017-12-28] MED LIST changes: +ACET500 PO; +ASCO500 PO; +Acidophilus La100 GM; +CARV25 PO; +DOCU100 PO; +ELIQUIS5 M1 PO; +INSU100I6; +LEVFLO500 PO; +LISI5 PO; +Micro-K10 MEQ PO; +NITR.4SL SL; +OXYM.05NI; +PRAV20 PO; +SPIR25 PO; +TAMS.4ER PO; +TORSE20 PO
[2017-12-28 10:20] LABS: Source, Urine Voided
[2017-12-28 12:54] LABS: Bilirubin, Urine Neg (Neg); Blood, Urine Neg (Neg); Glucose Qualitative, Urine Neg (Neg); Ketones, Urine Neg (Neg); Leukocyte Esterase, Urine Neg (Neg); Nitrite, Urine Neg (Neg); Protein, Urine 2+ (Neg); Urobilinogen, Urine NORM (Normal)
[2017-12-28 13:13] LABS: Appearance, Urine Clear (Clear); Color, Urine Yellow (P-Yellow)
[2017-12-28 13:16] LABS: Bacteria Not Seen /hpf; Hyaline Casts 0-2 /lpf (0-2); Red Blood Cells, Urine Not Seen /hpf (0-2)
[2017-12-28 13:17] LABS: Squamous Epithelial Cells Few /hpf (Few)
== END | disposition home or self-care (01) ==
LOC: LAB SHORT 09:30 → LAB 09:30 → EDSTATUS 12-27 11:40 → LAB FUT 12-27 11:40
PROVIDERS: Nurse Practitioner Family
DX: R30.0 Dysuria (principal)
CPT/HCPCS: 81001; 87077; 87086; 87186

== ENCOUNTER → 2017-12-29 | Outpatient (CLI) | payer OTHER, MEDICARE ==
[2017-12-29 14:26] LABS: Hematocrit 34.8 % (37.0-53.0); Mean Corpuscular HGB 27.5 pg (26.0-34.0); Mean Corpuscular HGB Conc 31.6 g/dL (31.5-36.5); Mean Corpuscular Volume 87 fL (80-100); Mean Platelet Volume 11.7 fL (9.1-12.4); Platelet Count 227 K/mm3 (150-400); RDW Coefficient Variation 15.7 % (11.7-14.2); RDW Standard Deviation 50.1 fL (35.1-46.3); White Blood Cell Count 5.59 K/mm3 (4.00-11.30)
[2017-12-29 14:59] LABS: Anion Gap 10 mmol/L (6-16); Blood Urea Nitrogen 121 mg/dL (8-24); Bun/Creatinine Ratio 62.4 (12.0-20.0); CO2, Blood 25 mmol/L (21-32); Calcium, Blood 9.3 mg/dL (8.5-10.1); Chloride, Blood 97 mmol/L (98-108); Creatinine, Blood 1.94 mg/dL (0.60-1.20); Glomerular Filtration Rate 36 (60-); Glucose, Blood 168 mg/dL (70-99); Potassium, Blood 4.9 mmol/L (3.5-5.5); Sodium, Blood 132 mmol/L (136-145)
[2017-12-29 15:30] LABS: Percent Saturation 36.7 % (20.0-50.0)
[2017-12-29 15:33] LABS: Bun/Creatinine Ratio 64.6 (12.0-20.0); Calcium, Blood 9.4 mg/dL (8.5-10.1); Creatinine, Blood 1.92 mg/dL (0.60-1.20); Potassium, Blood 4.9 mmol/L (3.5-5.5)
== END ==
LOC: LAB SHORT 14:15 → LAB 14:15
PROVIDERS: Internal Medicine Nephrology; Nurse Practitioner
DX: N18.3 Chronic kidney disease, stage 3 (moderate) (principal); D63.1 Anemia in chronic kidney disease; N25.81 Secondary hyperparathyroidism of renal origin; E55.9 Vitamin D deficiency, unspecified; E78.00 Pure hypercholesterolemia, unspecified; R76.9 Abnormal immunological finding in serum, unspecified; R94.5 Abnormal results of liver function studies; R94.6 Abnormal results of thyroid function studies; D51.8 Other vitamin B12 deficiency anemias
CPT/HCPCS: 80048; 80069; 82306; 82607; 82728; 82746; 83036; 83540; 83550; 83970; 85027

== ENCOUNTER → 2017-12-30 | Outpatient (CLI) | payer OTHER, MEDICARE ==
[2017-12-30 13:05] LABS: Protein, Urine Quantitative 35.4 mg/dL (0.0-11.9)
== END | disposition home or self-care (01) ==
LOC: LAB 09:00 → LAB SHORT 09:00
PROVIDERS: Internal Medicine Nephrology
DX: N18.3 Chronic kidney disease, stage 3 (moderate) (principal); D63.1 Anemia in chronic kidney disease; N25.81 Secondary hyperparathyroidism of renal origin; E55.9 Vitamin D deficiency, unspecified; E78.00 Pure hypercholesterolemia, unspecified; D52.8 Other folate deficiency anemias; D58.9 Hereditary hemolytic anemia, unspecified; R94.6 Abnormal results of thyroid function studies; R94.5 Abnormal results of liver function studies; R32 Unspecified urinary incontinence
CPT/HCPCS: 81050; 82043; 84156

== ENCOUNTER 2018-01-19 17:19 | Inpatient (IN) | payer OTHER, MEDICARE ==
[~2018-01-19] VITALS: Ht 175.3 cm; Wt 131.8 kg
[~2018-01-19 17:19] MED LIST changes: -CEFP200 PO; -CHOL10002; -GABA100 PO
[2018-01-19 18:25] LABS: BASOPHILS ABSOLUTE AUTO 0.04 K/mm3 (0.00-0.23); BASOPHILS PERCENT AUTO 0 % (0-2); EOSINOPHILS ABSOLUTE AUTO 0.66 K/mm3 (0.00-0.68); EOSINOPHILS PERCENT AUTO 6 % (0-6); Hematocrit 34.3 % (37.0-53.0); IMMATURE GRAN ABSOLUTE AUTO 0.02 K/mm3 (0.00-0.10); IMMATURE GRAN PERCENT AUTO 0 % (0-1); LYMPHOCYTES ABSOLUTE AUTO 0.94 K/mm3 (0.84-5.20); LYMPHOCYTES PERCENT AUTO 9 % (21-46); MONOCYTES ABSOLUTE AUTO 0.95 K/mm3 (0.16-1.47); MONOCYTES PERCENT AUTO 9 % (4-13); Mean Corpuscular HGB 27.5 pg (26.0-34.0); Mean Corpuscular HGB Conc 32.1 g/dL (31.5-36.5); Mean Corpuscular Volume 86 fL (80-100); Mean Platelet Volume 10.8 fL (9.1-12.4); NEUTROPHILS PERCENT AUTO 75 % (41-73); Platelet Count 244 K/mm3 (150-400); RDW Coefficient Variation 16.2 % (11.7-14.2); RDW Standard Deviation 51.4 fL (35.1-46.3); White Blood Cell Count 10.51 K/mm3 (4.00-11.30)
[2018-01-19 18:48] LABS: Troponin I <0.015 ng/mL (0.000-0.040)
[2018-01-19 18:54] LABS: Alanine Aminotransfer (ALT/SGP 22 U/L (12-78); Albumin, Blood 3.2 g/dL (3.4-5.0); Albumin/Globulin Ratio 0.7 (0.8-1.8); Alk Phos 79 U/L (50-136); Anion Gap 11 mmol/L (6-16); Aspartate Aminotrans (AST/SGOT 13 U/L (12-37); Bilirubin, Total 0.3 mg/dL (0.1-1.0); Blood Urea Nitrogen 140 mg/dL (8-24); Bun/Creatinine Ratio 37.3 (12.0-20.0); CO2, Blood 22 mmol/L (21-32); Calcium, Blood 9.5 mg/dL (8.5-10.1); Chloride, Blood 94 mmol/L (98-108); Creatinine, Blood 3.75 mg/dL (0.60-1.20); Globulin, Blood 4.7 g/dL (2.2-4.0); Glomerular Filtration Rate 17 (60-); Glucose, Blood 201 mg/dL (70-99); Potassium, Blood 7.7 mmol/L (3.5-5.5); Sodium, Blood 127 mmol/L (136-145); Total Protein, Blood 7.9 g/dL (6.4-8.2)
[2018-01-19] MEDS ORDERED: PRAV20 PO (19:42)
[2018-01-19] MEDS ORDERED: ATOR80 PO (20:48)
[2018-01-19] MEDS ORDERED: CHOL10002 (20:51)
[2018-01-19] MEDS ORDERED: GABA100 PO (20:51)
[2018-01-19 22:13] LABS: Source, Urine Clean Catch
[2018-01-19 22:16] LABS: Bilirubin, Urine Neg (Neg); Blood, Urine Neg (Neg); Glucose Qualitative, Urine Neg (Neg); Ketones, Urine Neg (Neg); Leukocyte Esterase, Urine Neg (Neg); Nitrite, Urine Neg (Neg); Protein, Urine 1+ (Neg); Urobilinogen, Urine NORM (Normal)
[2018-01-19 22:17] LABS: Appearance, Urine Clear (Clear); Color, Urine Yellow (P-Yellow)
[2018-01-19 22:22] LABS: Bun/Creatinine Ratio 36.8 (12.0-20.0); Calcium, Blood 9.3 mg/dL (8.5-10.1); Creatinine, Blood 3.59 mg/dL (0.60-1.20); Potassium, Blood 7.8 mmol/L (3.5-5.5)
[2018-01-20 00:55] LABS: Bun/Creatinine Ratio 35.9 (12.0-20.0); Calcium, Blood 9.2 mg/dL (8.5-10.1); Creatinine, Blood 3.68 mg/dL (0.60-1.20); Potassium, Blood 6.6 mmol/L (3.5-5.5)
[2018-01-20 03:50] LABS: BASOPHILS ABSOLUTE AUTO 0.03 K/mm3 (0.00-0.23); BASOPHILS PERCENT AUTO 0 % (0-2); EOSINOPHILS ABSOLUTE AUTO 0.56 K/mm3 (0.00-0.68); EOSINOPHILS PERCENT AUTO 8 % (0-6); Hematocrit 33.8 % (37.0-53.0); Hemoglobin 10.9 g/dL (13.5-17.5); IMMATURE GRAN ABSOLUTE AUTO 0.02 K/mm3 (0.00-0.10); IMMATURE GRAN PERCENT AUTO 0 % (0-1); LYMPHOCYTES ABSOLUTE AUTO 1.07 K/mm3 (0.84-5.20); LYMPHOCYTES PERCENT AUTO 15 % (21-46); MONOCYTES ABSOLUTE AUTO 0.88 K/mm3 (0.16-1.47); MONOCYTES PERCENT AUTO 12 % (4-13); Mean Corpuscular HGB 27.4 pg (26.0-34.0); Mean Corpuscular HGB Conc 32.2 g/dL (31.5-36.5); Mean Corpuscular Volume 85 fL (80-100); Mean Platelet Volume 11.2 fL (9.1-12.4); NEUTROPHILS ABSOLUTE AUTO 4.71 K/mm3 (1.96-9.15); NEUTROPHILS PERCENT AUTO 65 % (41-73); Platelet Count 235 K/mm3 (150-400); RDW Coefficient Variation 16.3 % (11.7-14.2); Red Blood Cell Count 3.98 M/mm3 (4.30-5.90); White Blood Cell Count 7.27 K/mm3 (4.00-11.30)
[2018-01-20 04:07] LABS: Magnesium, Blood 2.2 mg/dL (1.6-2.4)
[2018-01-20 04:09] LABS: Albumin, Blood 3.1 g/dL (3.4-5.0); Anion Gap 13 mmol/L (6-16); Blood Urea Nitrogen 128 mg/dL (8-24); Bun/Creatinine Ratio 35.1 (12.0-20.0); CO2, Blood 26 mmol/L (21-32); Chloride, Blood 94 mmol/L (98-108); Creatinine, Blood 3.65 mg/dL (0.60-1.20); Glomerular Filtration Rate 18 (60-); Glucose, Blood 185 mg/dL (70-99); Phosphorus, Blood 6.9 mg/dL (2.5-4.9); Potassium, Blood 6.6 mmol/L (3.5-5.5); Sodium, Blood 133 mmol/L (136-145)
[2018-01-20 10:02] LABS: Creatine Kinase MB 2.4 ng/mL (0.0-3.6); Creatine Kinase MB Index 3.4 (0.0-4.0); Uric Acid, Blood 9.6 mg/dL (3.5-7.2)
[2018-01-20 10:22] LABS: Potassium, Blood 6.1 mmol/L (3.5-5.5)
[2018-01-20 17:05] LABS: Potassium, Blood 5.4 mmol/L (3.5-5.5)
[2018-01-21 04:28] LABS: Hematocrit 30.7 % (37.0-53.0); Hemoglobin 9.7 g/dL (13.5-17.5)
[2018-01-21 04:51] LABS: Albumin, Blood 2.7 g/dL (3.4-5.0); Anion Gap 9 mmol/L (6-16); Blood Urea Nitrogen 108 mg/dL (8-24); Bun/Creatinine Ratio 37.8 (12.0-20.0); CO2, Blood 25 mmol/L (21-32); Calcium, Blood 8.3 mg/dL (8.5-10.1); Chloride, Blood 100 mmol/L (98-108); Creatinine, Blood 2.86 mg/dL (0.60-1.20); Glomerular Filtration Rate 23 (60-); Glucose, Blood 167 mg/dL (70-99); Magnesium, Blood 1.9 mg/dL (1.6-2.4); Phosphorus, Blood 5.9 mg/dL (2.5-4.9); Potassium, Blood 4.9 mmol/L (3.5-5.5); Sodium, Blood 134 mmol/L (136-145)
[2018-01-21 04:56] LABS: PSA, %Free 26.8 %; PSA, Free 0.273 ng/mL
[2018-01-22 04:10] LABS: BASOPHILS ABSOLUTE AUTO 0.03 K/mm3 (0.00-0.23); BASOPHILS PERCENT AUTO 0 % (0-2); EOSINOPHILS ABSOLUTE AUTO 0.26 K/mm3 (0.00-0.68); EOSINOPHILS PERCENT AUTO 3 % (0-6); Hematocrit 30.3 % (37.0-53.0); Hemoglobin 9.7 g/dL (13.5-17.5); IMMATURE GRAN ABSOLUTE AUTO 0.02 K/mm3 (0.00-0.10); IMMATURE GRAN PERCENT AUTO 0 % (0-1); LYMPHOCYTES ABSOLUTE AUTO 0.76 K/mm3 (0.84-5.20); LYMPHOCYTES PERCENT AUTO 9 % (21-46); MONOCYTES PERCENT AUTO 14 % (4-13); Mean Corpuscular HGB 27.4 pg (26.0-34.0); Mean Corpuscular Volume 86 fL (80-100); Mean Platelet Volume 11.4 fL (9.1-12.4); NEUTROPHILS ABSOLUTE AUTO 6.31 K/mm3 (1.96-9.15); NEUTROPHILS PERCENT AUTO 74 % (41-73); Platelet Count 195 K/mm3 (150-400); RDW Coefficient Variation 16.2 % (11.7-14.2); RDW Standard Deviation 50.9 fL (35.1-46.3); Red Blood Cell Count 3.54 M/mm3 (4.30-5.90); White Blood Cell Count 8.58 K/mm3 (4.00-11.30)
[2018-01-22 04:29] LABS: Albumin, Blood 2.7 g/dL (3.4-5.0); Anion Gap 10 mmol/L (6-16); Blood Urea Nitrogen 80 mg/dL (8-24); Bun/Creatinine Ratio 37.7 (12.0-20.0); CO2, Blood 26 mmol/L (21-32); Calcium, Blood 8.4 mg/dL (8.5-10.1); Chloride, Blood 100 mmol/L (98-108); Creatinine, Blood 2.12 mg/dL (0.60-1.20); Glomerular Filtration Rate 33 (60-); Glucose, Blood 194 mg/dL (70-99); Magnesium, Blood 1.7 mg/dL (1.6-2.4); Potassium, Blood 4.2 mmol/L (3.5-5.5); Sodium, Blood 136 mmol/L (136-145)
[2018-01-22 11:09] LABS: Source, Urine Catheter
[2018-01-22 11:20] LABS: Bilirubin, Urine Neg (Neg); Blood, Urine 4+ (Neg); Glucose Qualitative, Urine 3+ (Neg); Ketones, Urine Neg (Neg); Leukocyte Esterase, Urine 3+ (Neg); Nitrite, Urine Pos (Neg); Protein, Urine 3+ (Neg); Urobilinogen, Urine NORM (Normal)
[2018-01-22 11:26] LABS: Appearance, Urine Turbid (Clear); Color, Urine Pale Yellow (P-Yellow)
[2018-01-22 11:28] LABS: White Blood Cells, Urine TNTC /hpf (0-5)
[2018-01-22 11:33] LABS: Bacteria Many /hpf
[2018-01-22 11:34] LABS: Red Blood Cells, Urine 0-2 /hpf (0-2)
[2018-01-22 11:35] LABS: Squamous Epithelial Cells Rare /hpf (Few)
[2018-01-22] MEDS ORDERED: CEFP200 PO (13:01)
[2018-01-23 04:30] LABS: BASOPHILS ABSOLUTE AUTO 0.04 K/mm3 (0.00-0.23); BASOPHILS PERCENT AUTO 0 % (0-2); EOSINOPHILS ABSOLUTE AUTO 0.21 K/mm3 (0.00-0.68); EOSINOPHILS PERCENT AUTO 2 % (0-6); Hematocrit 30.6 % (37.0-53.0); Hemoglobin 9.7 g/dL (13.5-17.5); IMMATURE GRAN ABSOLUTE AUTO 0.05 K/mm3 (0.00-0.10); IMMATURE GRAN PERCENT AUTO 1 % (0-1); LYMPHOCYTES ABSOLUTE AUTO 0.75 K/mm3 (0.84-5.20); LYMPHOCYTES PERCENT AUTO 7 % (21-46); MONOCYTES ABSOLUTE AUTO 1.45 K/mm3 (0.16-1.47); MONOCYTES PERCENT AUTO 13 % (4-13); Mean Corpuscular HGB 27.1 pg (26.0-34.0); Mean Corpuscular HGB Conc 31.7 g/dL (31.5-36.5); Mean Corpuscular Volume 86 fL (80-100); Mean Platelet Volume 11.2 fL (9.1-12.4); NEUTROPHILS ABSOLUTE AUTO 8.44 K/mm3 (1.96-9.15); NEUTROPHILS PERCENT AUTO 77 % (41-73); Platelet Count 180 K/mm3 (150-400); RDW Coefficient Variation 16.3 % (11.7-14.2); RDW Standard Deviation 51.5 fL (35.1-46.3); Red Blood Cell Count 3.58 M/mm3 (4.30-5.90); White Blood Cell Count 10.94 K/mm3 (4.00-11.30)
[2018-01-23 04:54] LABS: Magnesium, Blood 1.6 mg/dL (1.6-2.4)
[2018-01-23 04:58] LABS: Albumin, Blood 2.4 g/dL (3.4-5.0); Anion Gap 10 mmol/L (6-16); Blood Urea Nitrogen 65 mg/dL (8-24); CO2, Blood 27 mmol/L (21-32); Calcium, Blood 8.7 mg/dL (8.5-10.1); Chloride, Blood 97 mmol/L (98-108); Creatinine, Blood 2.03 mg/dL (0.60-1.20); Glomerular Filtration Rate 34 (60-); Glucose, Blood 174 mg/dL (70-99); Phosphorus, Blood 3.5 mg/dL (2.5-4.9); Potassium, Blood 3.9 mmol/L (3.5-5.5); Sodium, Blood 134 mmol/L (136-145)
[2018-01-24 04:54] LABS: Hemoglobin 9.6 g/dL (13.5-17.5)
[2018-01-24 05:15] LABS: Albumin, Blood 2.2 g/dL (3.4-5.0); Anion Gap 10 mmol/L (6-16); Blood Urea Nitrogen 70 mg/dL (8-24); Bun/Creatinine Ratio 36.3 (12.0-20.0); CO2, Blood 26 mmol/L (21-32); Calcium, Blood 8.6 mg/dL (8.5-10.1); Chloride, Blood 99 mmol/L (98-108); Creatinine, Blood 1.93 mg/dL (0.60-1.20); Glomerular Filtration Rate 37 (60-); Glucose, Blood 187 mg/dL (70-99); Magnesium, Blood 1.7 mg/dL (1.6-2.4); Phosphorus, Blood 3.8 mg/dL (2.5-4.9); Potassium, Blood 3.7 mmol/L (3.5-5.5); Sodium, Blood 135 mmol/L (136-145)
[2018-01-24] MEDS ORDERED: LEVFLO500 PO (14:41)
== END 2018-01-24 15:11 | disposition home or self-care (01) | DRG 683 ==
LOC: ER 17:19 → ICUE 19:06 → MEDS 19:06 → PCU 19:06 → ICUE 20:06 → PCU 01-20 14:56 → MEDS 01-23 13:52 → ENPENDDIS 01-24 12:00 → MEDS 01-24 15:11
PROVIDERS: Emergency Medicine; Hospitalist; Internal Medicine Nephrology; Nurse Practitioner Acute Care
DX: N17.9 Acute kidney failure, unspecified (principal); I13.0 Hypertensive heart and chronic kidney disease with heart failure and stage 1 through stage 4 chronic kidney disease, or unspecified chronic kidney disease; T83.511A Infection and inflammatory reaction due to indwelling urethral catheter, initial encounter; E87.1 Hypo-osmolality and hyponatremia; I50.42 Chronic combined systolic (congestive) and diastolic (congestive) heart failure; E87.5 Hyperkalemia; E11.22 Type 2 diabetes mellitus with diabetic chronic kidney disease; E11.42 Type 2 diabetes mellitus with diabetic polyneuropathy; N18.4 Chronic kidney disease, stage 4 (severe); E66.01 Morbid (severe) obesity due to excess calories; E86.9 Volume depletion, unspecified; D63.1 Anemia in chronic kidney disease; N40.1 Benign prostatic hyperplasia with lower urinary tract symptoms; R55 Syncope and collapse; R33.8 Other retention of urine; G47.33 Obstructive sleep apnea (adult) (pediatric); I25.10 Atherosclerotic heart disease of native coronary artery without angina pectoris; Z79.899 Other long term (current) drug therapy; Z74.01 Bed confinement status; Z79.4 Long term (current) use of insulin; Z87.891 Personal history of nicotine dependence; Z79.01 Long term (current) use of anticoagulants; Z89.431 Acquired absence of right foot; Z89.422 Acquired absence of other left toe(s); Z98.49 Cataract extraction status, unspecified eye; Z95.5 Presence of coronary angioplasty implant and graft
CPT/HCPCS: 36415; 71046; 76770; 80048; 80053; 80069; 81001; 82374; 82533; 82550; 82553; 82947; 83735; 83880; 84132; 84153; 84154; 84484; 84550; 85014; 85018; 85025; 87077; 87081; 87086; 87186; 93005; 93010; 94762; 96365; 96375; 97110; 97162; 97530; 99285; G8978; G8979; J0696; J0881; J1644; J1815; J1940; J2405; J7030

== ENCOUNTER → 2018-01-19 | Outpatient (CLI) | payer OTHER, MEDICARE ==
[~2018-01-19] MED LIST changes: +CEFP200 PO; +CHOL10002; +GABA100 PO
[2018-01-19 16:20] LABS: Albumin, Blood 3.2 g/dL (3.4-5.0); Anion Gap 12 mmol/L (6-16); Blood Urea Nitrogen 132 mg/dL (8-24); Bun/Creatinine Ratio 35.9 (12.0-20.0); CO2, Blood 22 mmol/L (21-32); Chloride, Blood 95 mmol/L (98-108); Creatinine, Blood 3.68 mg/dL (0.60-1.20); Glomerular Filtration Rate 17 (60-); Glucose, Blood 171 mg/dL (70-99); Phosphorus, Blood 7.1 mg/dL (2.5-4.9); Sodium, Blood 129 mmol/L (136-145)
[2018-01-19 16:21] LABS: Potassium, Blood 7.7 mmol/L (3.5-5.5)
[2018-01-21 04:11] LABS: HBSAG SCREEN Negative (Negative); HCV ANTIBODY <0.1 (0.0-0.9)
== END ==
LOC: OLS 14:40 → LAB SHORT 14:40
PROVIDERS: Internal Medicine Nephrology
DX: N18.3 Chronic kidney disease, stage 3 (moderate) (principal); D63.1 Anemia in chronic kidney disease; N25.81 Secondary hyperparathyroidism of renal origin; E55.9 Vitamin D deficiency, unspecified; E78.00 Pure hypercholesterolemia, unspecified; R94.6 Abnormal results of thyroid function studies; R94.5 Abnormal results of liver function studies; R76.9 Abnormal immunological finding in serum, unspecified
CPT/HCPCS: 36415; 80069; 85018; 86038

== ENCOUNTER → 2018-01-31 | Outpatient (CLI) | payer OTHER, MEDICARE ==
[~2018-01-31] MED LIST changes: +CEFP200 PO; +CHOL10002; +GABA100 PO
[2018-01-31 12:13] LABS: BASOPHILS ABSOLUTE AUTO 0.03 K/mm3 (0.00-0.23); BASOPHILS PERCENT AUTO 0 % (0-2); EOSINOPHILS ABSOLUTE AUTO 0.38 K/mm3 (0.00-0.68); EOSINOPHILS PERCENT AUTO 4 % (0-6); Hematocrit 32.1 % (37.0-53.0); Hemoglobin 10.2 g/dL (13.5-17.5); IMMATURE GRAN ABSOLUTE AUTO 0.06 K/mm3 (0.00-0.10); IMMATURE GRAN PERCENT AUTO 1 % (0-1); LYMPHOCYTES ABSOLUTE AUTO 0.87 K/mm3 (0.84-5.20); LYMPHOCYTES PERCENT AUTO 10 % (21-46); MONOCYTES ABSOLUTE AUTO 0.75 K/mm3 (0.16-1.47); MONOCYTES PERCENT AUTO 8 % (4-13); Mean Corpuscular HGB 27.3 pg (26.0-34.0); Mean Corpuscular HGB Conc 31.8 g/dL (31.5-36.5); Mean Corpuscular Volume 86 fL (80-100); Mean Platelet Volume 10.7 fL (9.1-12.4); NEUTROPHILS ABSOLUTE AUTO 6.96 K/mm3 (1.96-9.15); NEUTROPHILS PERCENT AUTO 77 % (41-73); Platelet Count 344 K/mm3 (150-400); RDW Coefficient Variation 16.1 % (11.7-14.2); RDW Standard Deviation 51.1 fL (35.1-46.3); Red Blood Cell Count 3.74 M/mm3 (4.30-5.90); White Blood Cell Count 9.05 K/mm3 (4.00-11.30)
[2018-01-31 12:51] LABS: Albumin, Blood 2.6 g/dL (3.4-5.0); Albumin/Globulin Ratio 0.6 (0.8-1.8); Bilirubin, Total 0.4 mg/dL (0.1-1.0); Bun/Creatinine Ratio 51.6 (12.0-20.0); Calcium, Blood 8.5 mg/dL (8.5-10.1); Creatinine, Blood 2.23 mg/dL (0.60-1.20); Globulin, Blood 4.4 g/dL (2.2-4.0); Potassium, Blood 5.3 mmol/L (3.5-5.5)
== END ==
LOC: LAB HH 11:15
PROVIDERS: Hospitalist
DX: I13.0 Hypertensive heart and chronic kidney disease with heart failure and stage 1 through stage 4 chronic kidney disease, or unspecified chronic kidney disease (principal); I50.43 Acute on chronic combined systolic (congestive) and diastolic (congestive) heart failure; E11.22 Type 2 diabetes mellitus with diabetic chronic kidney disease; N18.2 Chronic kidney disease, stage 2 (mild)
CPT/HCPCS: 80053; 85025

== ENCOUNTER → 2018-02-07 | Outpatient (CLI) | payer OTHER, MEDICARE ==
[2018-02-07 11:22] LABS: BASOPHILS ABSOLUTE AUTO 0.05 K/mm3 (0.00-0.23); BASOPHILS PERCENT AUTO 1 % (0-2); EOSINOPHILS ABSOLUTE AUTO 0.41 K/mm3 (0.00-0.68); EOSINOPHILS PERCENT AUTO 5 % (0-6); Hematocrit 34.3 % (37.0-53.0); Hemoglobin 10.8 g/dL (13.5-17.5); IMMATURE GRAN ABSOLUTE AUTO 0.06 K/mm3 (0.00-0.10); IMMATURE GRAN PERCENT AUTO 1 % (0-1); LYMPHOCYTES ABSOLUTE AUTO 0.99 K/mm3 (0.84-5.20); LYMPHOCYTES PERCENT AUTO 12 % (21-46); MONOCYTES ABSOLUTE AUTO 0.81 K/mm3 (0.16-1.47); MONOCYTES PERCENT AUTO 10 % (4-13); Mean Corpuscular HGB 27.3 pg (26.0-34.0); Mean Corpuscular HGB Conc 31.5 g/dL (31.5-36.5); Mean Corpuscular Volume 87 fL (80-100); Mean Platelet Volume 10.7 fL (9.1-12.4); NEUTROPHILS ABSOLUTE AUTO 5.94 K/mm3 (1.96-9.15); NEUTROPHILS PERCENT AUTO 72 % (41-73); Platelet Count 320 K/mm3 (150-400); RDW Coefficient Variation 16.3 % (11.7-14.2); RDW Standard Deviation 51.8 fL (35.1-46.3); Red Blood Cell Count 3.96 M/mm3 (4.30-5.90); White Blood Cell Count 8.26 K/mm3 (4.00-11.30)
[2018-02-07 11:33] LABS: Anion Gap 8 mmol/L (6-16); Blood Urea Nitrogen 101 mg/dL (8-24); Bun/Creatinine Ratio 51.5 (12.0-20.0); CHOL/HDL RATIO 4.2; CO2, Blood 28 mmol/L (21-32); Calcium, Blood 8.9 mg/dL (8.5-10.1); Chloride, Blood 98 mmol/L (98-108); Cholesterol 113 mg/dL (50-200); Creatinine, Blood 1.96 mg/dL (0.60-1.20); Glomerular Filtration Rate 36 (60-); Glucose, Blood 216 mg/dL (70-99); HDL Cholesterol 27 mg/dL (>39); LDL/HDL RATIO 2.1; Low Density Lipoprotein Chol 56 mg/dL (0-110); Potassium, Blood 5.5 mmol/L (3.5-5.5); Sodium, Blood 134 mmol/L (136-145); Triglycerides 148 mg/dL (30-160); Very Low Density Lipoprot Chol 29 mg/dL (6-32)
== END | disposition home or self-care (01) ==
LOC: LAB HH 10:55 → LAB 10:55
PROVIDERS: Nurse Practitioner
DX: I13.0 Hypertensive heart and chronic kidney disease with heart failure and stage 1 through stage 4 chronic kidney disease, or unspecified chronic kidney disease (principal); E11.22 Type 2 diabetes mellitus with diabetic chronic kidney disease; N18.9 Chronic kidney disease, unspecified; I50.9 Heart failure, unspecified
CPT/HCPCS: 80048; 80061; 82985; 83036; 85025

== ENCOUNTER → 2018-02-14 | Outpatient (CLI) | payer OTHER, MEDICARE | END | disposition home or self-care (01) | LOC: LAB HH 13:30 → LAB SHORT 13:30 | DX: E87.5 Hyperkalemia (principal) | CPT/HCPCS: 84132 ==

== ENCOUNTER 2019-01-08 12:22 | Inpatient (IN) | payer OTHER ==
[~2019-01-08] VITALS: Ht 175.3 cm; Wt 173.3 kg
[~2019-01-08 12:22] MED LIST changes: -ACET500 PO; -ASCO500 PO; -CARV25 PO; -CLON.1 PO; -CLOP75 PO; -GABA100 PO; -INSDET100 SC; -INSU100I6; -NITR.4SL SL; +Nystatin15 GM TOP; -Paxil40 MG PO; -TAMS.4ER PO
[2019-01-08 14:32] LABS: Bun/Creatinine Ratio 43.7 (12.0-20.0); Calcium, Blood 8.6 mg/dL (8.5-10.1); Creatinine, Blood 1.83 mg/dL (0.60-1.20); Potassium, Blood 3.7 mmol/L (3.5-5.5)
--- NOTE | 2019-01-08 16:28 | NUR ---
ADMIT: PT ARRIVED TO ICU 11 PCU OVERFLOW AT 1600. 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 PT HAS LARGE REDDENED, PEELING AREA ON HIS BOTTOM. PT'S SAYS THAT IT HAS BEEN GETTING BIGGER AND THEY HAVE BEEN PUTTING CALMOSEPTINE ON IT AND TRYING TO KEEP IT DRY. MED LIST REVIEWED WITH PT'S , BUT SHE WILL ALSO BRING IN HER LIST FROM HOME. PT ON 4L/NC AND BREATHING EASILY. NO OTHER REQUESTS AT THIS TIME. CONTINUING TO MONITOR.
--- NOTE | 2019-01-08 18:06 | NUR ---
SPOKE WITH DR. MO ABOUT PT'S BLOOD SUGAR. RECEIVED OK TO ORDER MEDIUM SLIDING SCALE FOR PT WITH MEALS ONLY. PT WENT AND HAD HIS V/Q SCAN, TOLERATED WELL. LAYING IN BED EATING DINNER NOW. PT'S WENT HOME FOR THE NIGHT.
--- NOTE | 2019-01-08 20:00 | NUR ---
ASSESSMENT/ASSUMED CARE PT SITTING UP IN BED WATCHING TV. DENIES PAIN. PT STATES,"I'M DOING GOOD RIGHT NOW". LUNGS DECREASED THROUGHOUT ON 4 LITERS O2 VIA NC. HEART RATE REGULAR. BP STABLE. EDEMA NOTED TO LOWER EXT. DENIES CHEST PAIN OR PRESSURE. BT+ ABD SOFT AND NONTENDER. DENIES N/V. VOIDED DARK YELLOW URINE. LINENS CHANGED AND NYSTATIN APPLIED TO BOTTOM. PT REPOSITIONED TO RIGHT TO KEEP OFF BOTTOM. IV ANTIBIOTIC INFUSING. BLOOD GLUCOSE 313, LONG ACTING INSULIN GIVEN. PT REQUESTED BIPAP FOR SLEEP. BIPAP APPLIED SETTINGS 07/08 RATE 14 FIO2 30%.
--- NOTE | 2019-01-09 00:09 | NUR ---
BIPAP SETTING RT TITRATED BIPAP SETTING TO 10/5 DUE TO MIN VENTALATION BEING HIGH. PT SLEEPING WITH BIPAP ON. VSS
[2019-01-09 03:35] LABS: BASOPHILS ABSOLUTE AUTO 0.02 K/mm3 (0.00-0.23); BASOPHILS PERCENT AUTO 0 % (0-2); EOSINOPHILS ABSOLUTE AUTO 0.37 K/mm3 (0.00-0.68); EOSINOPHILS PERCENT AUTO 5 % (0-6); Hematocrit 26.8 % (37.0-53.0); Hemoglobin 8.2 g/dL (13.5-17.5); IMMATURE GRAN ABSOLUTE AUTO 0.01 K/mm3 (0.00-0.10); IMMATURE GRAN PERCENT AUTO 0 % (0-1); LYMPHOCYTES ABSOLUTE AUTO 0.58 K/mm3 (0.84-5.20); LYMPHOCYTES PERCENT AUTO 7 % (21-46); MONOCYTES ABSOLUTE AUTO 0.75 K/mm3 (0.16-1.47); MONOCYTES PERCENT AUTO 10 % (4-13); Mean Corpuscular HGB 29.2 pg (26.0-34.0); Mean Corpuscular HGB Conc 30.6 g/dL (31.5-36.5); Mean Corpuscular Volume 95 fL (80-100); Mean Platelet Volume 11.1 fL (9.1-12.4); NEUTROPHILS ABSOLUTE AUTO 6.11 K/mm3 (1.96-9.15); NEUTROPHILS PERCENT AUTO 78 % (41-73); Platelet Count 171 K/mm3 (150-400); RDW Coefficient Variation 15.7 % (11.7-14.2); RDW Standard Deviation 54.5 fL (35.1-46.3); Red Blood Cell Count 2.81 M/mm3 (4.30-5.90); White Blood Cell Count 7.84 K/mm3 (4.00-11.30)
[2019-01-09 03:57] LABS: Albumin, Blood 2.6 g/dL (3.4-5.0); Albumin/Globulin Ratio 0.7 (0.8-1.8); Bilirubin, Total 0.5 mg/dL (0.1-1.0); Calcium, Blood 8.4 mg/dL (8.5-10.1); Creatinine, Blood 1.91 mg/dL (0.60-1.20); Globulin, Blood 3.9 g/dL (2.2-4.0); Potassium, Blood 3.6 mmol/L (3.5-5.5); Total Protein, Blood 6.5 g/dL (6.4-8.2)
--- NOTE | 2019-01-09 05:36 | NUR ---
ELEVATED TROPONIN DR DELACRUZ NOTIFIED REGARDING TROPONIN 0.637, NO NEW ORDERS
--- NOTE | 2019-01-09 05:48 | NUR ---
SHIFT SUMMARY PT RESTING QUIETLY DURING THE NIGHT. BIPAP ON. SETTINGS 05/05 RATE 14 FIO2 30%. ORAL CARE DONE Q4HR AND PT TURNED SIDE TO SIDE TO KEEP OFF BOTTOM Q2HR. VSS. DENIES PAIN OR DISCOMFORT. EKG DONE THIS AM. REPORT TO ON COMING NURSE
[2019-01-09] MEDS ORDERED: Bacid1 EACH PO (08:40)
--- NOTE | 2019-01-09 09:48 | NUR ---
Echocardiogram using 0.6ml of Definity contrast performed.
--- NOTE | 2019-01-09 10:18 | NUR ---
AM CARE GIVEN TO PT BUTTOCKS. PT AWAKENED SLOWLY BUT IS A/O. DR VELARDE IN AND DR AL CALLED 0910 RE CONSULT. PT DENIES PAIN OR DISTRESS. PT NPO FOR POSSIBLE CARDIOLOGY PROCEDURE.
--- NOTE | 2019-01-09 10:37 | NUR ---
DR ZARCO CALLED.
--- NOTE | 2019-01-09 11:46 | NUR ---
PT REQUESTED TO RETURN TO BIPAP. HOB ELEVATED AND CXR DIBE.
[2019-01-09 12:20] LABS: Hematocrit 27.4 % (37.0-53.0); Hemoglobin 8.4 g/dL (13.5-17.5)
--- NOTE | 2019-01-09 18:01 | NUR ---
Mr. Serrano is a personable, delightful man. He reports a strong jourdan in a loving God. He has been unable to attend [facility] for "a couple years" due to his illness. He tells me he has been "blessed" at every turn of his life. Gibson of 50+years and a daughter who is loving/supportive. He has no complaints and appears to be taking his progressive physical weakness in stride. He is very concerned about his and her stress of caring for him. Neither one of them "like a lot of people in the house." Home health care-givers cause his stress. That said, both pt and spouse realize the help is needed. In fact, Mr. 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 We prayed together for his at his request. We had an easy rapport which I suspect is the norm for this delightful man. He appears chronically ill. He expect to improve and return to baseline/home. I will remain available.
--- NOTE | 2019-01-09 18:22 | NUR ---
PT IS SETTING UP EATING. HE HAS DENIED ANY CHEST PAIN AND WHEN NOT SETTING UP EATING HE HAS REQUESTED THE BIPAP AND SET AT 10/5 ON 30%, BLOOD SUGARS HAVE BEEN MANNAGED NOTED TODAY AND NO LANTUS HAS BEEN GIVEN AND HUMOLOG ONLY ON DOSE THIS EVENING, SEE EMAR.
--- NOTE | 2019-01-09 19:20 | NUR ---
ASSUMED CARE PT SUPINE IN BED ON BIPAP 10/5 FIO2 30% WITH O2 SATS LOW 90'S. PT IS ALERT AND ORIENTED WITHOUT COMPLAINTS AT ASSESSMENT. PT REPORTS HE IS FEELING A LITTLE BETTER SINCE ADMISSION BUT STILL NOT 100%. 1/2NS AT 50ML/HR, BP STABLE, ECG SHOWS SR WITH 1ST DEGREE AVB. CALL LIGHT IN REACH AND BED IN LOW POSITION.
[2019-01-10 03:49] LABS: BASOPHILS ABSOLUTE AUTO 0.03 K/mm3 (0.00-0.23); BASOPHILS PERCENT AUTO 0 % (0-2); EOSINOPHILS PERCENT AUTO 6 % (0-6); Hematocrit 25.3 % (37.0-53.0); Hemoglobin 7.7 g/dL (13.5-17.5); IMMATURE GRAN ABSOLUTE AUTO 0.03 K/mm3 (0.00-0.10); IMMATURE GRAN PERCENT AUTO 0 % (0-1); LYMPHOCYTES ABSOLUTE AUTO 0.59 K/mm3 (0.84-5.20); LYMPHOCYTES PERCENT AUTO 7 % (21-46); MONOCYTES ABSOLUTE AUTO 0.69 K/mm3 (0.16-1.47); MONOCYTES PERCENT AUTO 9 % (4-13); Mean Corpuscular HGB 29.1 pg (26.0-34.0); Mean Corpuscular HGB Conc 30.4 g/dL (31.5-36.5); Mean Corpuscular Volume 96 fL (80-100); Mean Platelet Volume 11.8 fL (9.1-12.4); NEUTROPHILS ABSOLUTE AUTO 6.31 K/mm3 (1.96-9.15); NEUTROPHILS PERCENT AUTO 77 % (41-73); Platelet Count 177 K/mm3 (150-400); RDW Coefficient Variation 15.8 % (11.7-14.2); RDW Standard Deviation 55.6 fL (35.1-46.3); Red Blood Cell Count 2.65 M/mm3 (4.30-5.90); White Blood Cell Count 8.15 K/mm3 (4.00-11.30)
[2019-01-10 04:13] LABS: Albumin, Blood 2.4 g/dL (3.4-5.0); Anion Gap 5 mmol/L (6-16); Blood Urea Nitrogen 82 mg/dL (8-24); Bun/Creatinine Ratio 47.7 (12.0-20.0); CO2, Blood 33 mmol/L (21-32); Chloride, Blood 106 mmol/L (98-108); Creatinine, Blood 1.72 mg/dL (0.60-1.20); Glomerular Filtration Rate 42 (60-); Glucose, Blood 206 mg/dL (70-99); Magnesium, Blood 2.7 mg/dL (1.6-2.4); Phosphorus, Blood 3.4 mg/dL (2.5-4.9); Potassium, Blood 3.7 mmol/L (3.5-5.5); Sodium, Blood 144 mmol/L (136-145)
--- NOTE | 2019-01-10 06:27 | NUR ---
SHIFT SUMMARY NO ACUTE EVENTS OVERNIGHT. PT UTILIZED BIPAP 10/5 FIO2 30-35% OVERNIGHT WITH SHORT BREAKS FOR PO WATER AND ORAL CARE. PT REPORTED INCREASED WOB WHEN BIPAP OFF, SO BREAKS WERE LIMITED TO PT COMFORT AND LASTED APPROX 10 MINUTES. PT HAS TWO LARGE URINE VOIDS WITH SPILL INTO BED. VSS, ECG SHOWS SR W/ FIRST DEGREE AND BBB, O2 SATS MID TO LOW 90'S BUT DROP TO HIGH 80'S WITH MINIMAL EXERTION. THIS AM DR ZARCO IN, ORDERED 1 UNIT PRBC WITH BUMEX TO BE GIVEN MIDWAY, START BUMEX IV TOMORROW AND TO STOP IV FLUIDS.
--- NOTE | 2019-01-10 08:30 | NUR ---
INITIAL ASSESSMENT PATIENT ALERT AND ORIENTED X 4, AFEBRILE. PATIENT ABLE TO MOVE ALL EXTREMITIES BUT IS VERY WEAK. CEILING LIFT TO TRANSFER PATIENT TO CHAIR. PATIENT DENIES PAIN OR DISCOMFORT AT THIS TIME. PATIENT SATTING 90% AND GREATER ON EITHER BIPAP 10/5, 30% OR 4 L NC. PATIENT WEARS CPAP AND 4 L NC AT HOME. PATIENT STATES HE HAS BEEN HAVING OCCASIONAL, DRY COUGH. RULL CLEAR, ALL OTHER LUNG LOBES DIMINISHED ON AUSCULTATION. PATIENT SOB WITH EXERTION. PATIENT IN SR WITH FIRST DEGREE BLOCK AND BBB. HR 60S TO 70S. BP STABLE. SCDS IN PLACE. ABDOMEN MODERATELY DISTENDED, FIRM, WITH NORMOACTIVE BS. PATIENT STATES THAT DISTENTION AND FIRMNESS FEEL NORMAL FOR HIM. PATIENT'S LAST BM ON THE , SMEAR NOTED ON THE . PATIENT VOIDING DARK YELLOW URINE INTO BEDSIDE URINAL. PATIENT DOES TEND TO SPILL VOIDS LARGER AMOUNTS AT EACH TIME. BOTTOM IS REDDENED AND MACERATED. SOME OF THE PATIENT'S TOENAILS ARE BLACK. BRUISES NOTED TO BUES. 1+ EDEMA NOTED TO BLES. IV FLUSHED AND SALINE LOCKED. BED LOW, CALL LIGHT IN REACH. WILL CONTINUE TO MONITOR PATIENT FREQUENTLY THROUGHOUT SHIFT.
[2019-01-10 11:59] LABS: Source, Urine Catheter
--- NOTE | 2019-01-10 12:00 | NUR ---
PATIENT SITTING UP IN CHAIR EATING LUNCH. PATIENT AFEBRILE. NO COMPLAINTS OF PAIN AT THIS TIME. HR IN THE 60S, SBP 160. ALL OTHER VITAL SIGNS STABLE. MARIEE CATHETER INSERTED EARLIER PER DR. MO FOR STRICT I&O AND TO PROTECT MACERATED BUTTOCKS. NO OTHER ACUTE CHANGES TO NOTE ON AT THIS TIME. WILL CONTINUE TO MONITOR.
[2019-01-10 12:44] LABS: Bilirubin, Urine Neg (Neg); Blood, Urine 1+ (Neg); Glucose Qualitative, Urine Neg (Neg); Ketones, Urine Neg (Neg); Leukocyte Esterase, Urine 1+ (Neg); Nitrite, Urine Neg (Neg); Protein, Urine 3+ (Neg); Specific Gravity, Urine 1.015 (1.003-1.022); Urobilinogen, Urine NORM (Normal)
[2019-01-10 13:08] LABS: Appearance, Urine Clear (Clear); Color, Urine Yellow (P-Yellow)
[2019-01-10 13:09] LABS: Granular Casts 0-2 /lpf (0); Hyaline Casts 0-2 /lpf (0-2)
[2019-01-10 13:10] LABS: Bacteria Few /hpf; Squamous Epithelial Cells Not Seen /hpf (Few)
--- NOTE | 2019-01-10 14:55 | NUR ---
DR. MO CALLED TO INFORM OF PATIENT'S SBP IN THE 190S. ALSO INFORMED THAT URINE SAMPLE FROM CATHETER SHOWED POSITIVE LEUKOCYTES AND BACTERIA. STATES SHE WILL PUT ORDER IN FOR THE HTN.
--- NOTE | 2019-01-10 18:40 | NUR ---
SHIFT SUMMARY PATIENT REMAINED ALERT AND ORIENTED X 4, AFEBRILE. PATIENT WEAK BUT MOVES ALL EXTREMITIES. PATIENT OOB TO CHAIR TODAY WITH CEILING LIFT. PATIENT HAD NO COMPLAINTS OF PAIN. PATIENT SATTED 90% AND GREATER ON 4-6 L NC OR BIPAP 10/5, 30% FIO2. PATIENT CONTINUES TO HAVE DRY COUGH AND BECOME SOB WITH EXERTION. PATIENT HAS REMAINED IN SR WITH FIRST DEGREE BLOCK AND BBB. HR 60S TO 70S. BP STABLE THIS AM, BUT SBP INCREASED TO 160-190 THIS AFTERNOON. COZAAR STARTED PER DR. MO. PATIENT SBP NOW IN 150S. PATIENT DID NOT HAVE BM THIS SHIFT. SUPPOSITORY ADMINISTERED. PATIENT HAD OKAY APPETITE T/O DAY. MARIEE PLACED FOR I&OS AND SKIN PROTECTION. MARIEE DRAINING ADEQUATE AMOUNTS OF DARK YELLOW URINE. NYSTATIN POWDER STARTED TODAY FOR REDDENED SKIN FOLDS. NO OTHER CHANGE IN SKIN TO NOTE ON. IV SALINE LOCKED. BLOOD SUGARS RANGED FROM 197 TO 236- COVERAGE ADMINISTERED. 1 UNIT PRBCS GIVEN THIS SHIFT. PATIENT HAD BED BATH AND WORKED WITH PHYSICAL THERAPY. BED LOW, CALL LIGHT IN REACH. PATIENT HAS NO COMPLAINTS AT THIS TIME. REPORT WILL BE GIVEN TO [facility] FINISHER TAILOR NURSE SHORTLY.
--- NOTE | 2019-01-10 21:30 | NUR ---
ASSUMED CARE OF PT. REPORT RCV'D FROM SHARON VAZQUEZ. PT ALERT AND ORIENTED SITTING IN BED ON 6L NC. PT DENIES CHEST OR ABDOMINAL PAIN AT THIS TIME. PT AFEBRILE, VSS. PT TO USE BIPAP PRN. MARIEE PATENT AND DRAINING DARK YELLOW URINE. HYPOACTIVE BOWEL SOUNDS. SEE FULL SHIFT ASSESSMENT.
[2019-01-11 03:42] LABS: Hematocrit 26.8 % (37.0-53.0); Hemoglobin 8.2 g/dL (13.5-17.5)
[2019-01-11 04:02] LABS: Albumin, Blood 2.5 g/dL (3.4-5.0); Anion Gap 3 mmol/L (6-16); Blood Urea Nitrogen 71 mg/dL (8-24); Bun/Creatinine Ratio 44.7 (12.0-20.0); CO2, Blood 34 mmol/L (21-32); Calcium, Blood 8.3 mg/dL (8.5-10.1); Chloride, Blood 109 mmol/L (98-108); Creatinine, Blood 1.59 mg/dL (0.60-1.20); Glomerular Filtration Rate 46 (60-); Glucose, Blood 129 mg/dL (70-99); Magnesium, Blood 2.5 mg/dL (1.6-2.4); Phosphorus, Blood 3.1 mg/dL (2.5-4.9); Potassium, Blood 3.5 mmol/L (3.5-5.5); Sodium, Blood 146 mmol/L (136-145)
--- NOTE | 2019-01-11 06:31 | NUR ---
SHIFT SUMMARY NO ACUTE CHANGES OVERNIGHT. PT ABLE TO MAINTAIN GOOD SP02 SATS WEARING THE CPAP ALL NIGHT. VSS. PT DOES DESAT QUICKLY WHEN CPAP TAKEN OFF. PT'S AT BEDSIDE ALL NIGHT. WILL REPORT TO DAYSHIFT NURSE.
--- NOTE | 2019-01-11 07:57 | NUR ---
PT RESTED WELL ON CPAP LAST NOC. A/O THIS AM AND C/O BEING HOT, NO TEMP. REPOSITIONED FOR BFAST AND WILL [facility] WITH AM BATH. IV SL. BP SL ELEVATED OVERALL AND WILL REPORT TO SEE IF NEW ORDERS INDICATED.
--- NOTE | 2019-01-11 09:42 | NUR ---
PT BATH COMPLETED AND THEN P.T. INTO WORK WITH PT. PT DANGLED AND BECAME QUITE DIZZY AND SOB. LAYED BACK DOWN AND RETURNED TO CPAP QUICKLY RECOVERED EZE SATS FROM MID 80'S TO 94+ AND NOTED THAT THE DIZZINESS IMPROVED BUT AYDEN TOTALLY GONE. IVBP COMPLETING.
[2019-01-11 11:51] LABS: PCO2 Arterial 56.5 mmHg (35-45); PO2 Arterial 81.5 mmHg (80-100)
--- NOTE | 2019-01-11 17:10 | NUR ---
PT SOAP SUDS ENEMA GIVEN WITH CLEARING OF RECTAL VAULT OF MOD CONSTIPATTED STOOL. MAY NEED EXTRA PO SUPPORT FOR MOTILITY. PT TOLERATED WELL WITH CPAP ON AND BOTTOCKS CLEANED AND NYSTATIN APPLIED. PT FAMILY IN TO VISIT.
--- NOTE | 2019-01-11 18:54 | NUR ---
PT IS RESTING WELL, DENIES STOOLING AFTER ENEMA. PT REQUESTED BIPAP AND RESTING WELL.
--- NOTE | 2019-01-11 19:15 | NUR ---
ASSUMED CARE OF PT, REPORT RCV'D FROM SHARON WRIGHT. PT ALERT AND ORIENTED SITTING IN BED WEARING CPAP.. PT STATES THAT HE IS FEELING BETTER AND THAT HE IS LOOKING FORWARD TO GOING HOME. WHEN ASKED ABOUT POTENTIAL REHAB PLACEMENT IN SNF PATIENT ADAMENTLY DENIED NEED STATING HE CAN "REHAB AT HOME". PT AFEBRILE AND HYPERTENSIVE. PER PHYSICIAN ORDER, COZAAR DOSE TO INCREASE 01/12/19. SEE FULL SHIFT ASSESSMENT.
[2019-01-12 03:33] LABS: Hematocrit 28.4 % (37.0-53.0); Hemoglobin 8.6 g/dL (13.5-17.5)
[2019-01-12 03:48] LABS: Albumin, Blood 2.6 g/dL (3.4-5.0); Anion Gap 6 mmol/L (6-16); Blood Urea Nitrogen 54 mg/dL (8-24); Bun/Creatinine Ratio 41.5 (12.0-20.0); CO2, Blood 35 mmol/L (21-32); Calcium, Blood 8.4 mg/dL (8.5-10.1); Chloride, Blood 109 mmol/L (98-108); Glomerular Filtration Rate 57 (60-); Glucose, Blood 120 mg/dL (70-99); Magnesium, Blood 2.4 mg/dL (1.6-2.4); Phosphorus, Blood 2.4 mg/dL (2.5-4.9); Potassium, Blood 3.4 mmol/L (3.5-5.5); Sodium, Blood 150 mmol/L (136-145)
--- NOTE | 2019-01-12 04:01 | NUR ---
PT REQUIRING HIGHER BLEED IN TO CPAP MACHINE TO MAINTAIN SATS OVER 90. PT CURRENTLY AT 9L, PREVIOUSLY ON 6L. PT DENIES INCREASED SHORTNESS OF BREATH BUT WAS DIFFICULT TO AROUSE.
--- NOTE | 2019-01-12 05:54 | NUR ---
SHIFT SUMMARY PT REMAINS ON CPAP WITH 9L BLEED IN WITH SATS IN THE LOW 90'S WITH ZERO EXERTION AND O2 SATS DROP TO THE LOW 70'S WITH MINIMAL EXERTION OR WITHOUT CPAP IN PLACE. PT HYPERTENSIVE THROUGH ENTIRETY OF SHIFT. NO ADDITIONAL CHANGES NOTED. DISCUSSED SNF PLACEMENT WITH PT'S THIS MORNING. STATES THAT WHILE SHE "THINKS IT WOULD BE HELPFUL" SHE BELIEVES PT WILL REFUSE TO GO. PLEASE SEE PREVIOUS NOTES FROM THIS SHIFT AND ASSESSMENTS. WILL REPORT TO DAYSHIFT NURSE.
--- NOTE | 2019-01-12 07:15 | NUR ---
START OF SHIFT NOTE: RECEIVED REPORT FROM MARICEL STACY RN, ASSUMED CARE, PATIENT IS AWAKE AND ON HOME CPAP, SWITCHED TO 4L NC FOR PATIENT TO TAKE AM ORAL MEDICATION, PATIENT DENIES PAIN, AFEBRILE, LUNG SOUNDS DIMINISHED THROUGHOUT, SR WITH FIRST DEGREE AND RIGHT BBB, PATIENT IS ALERT AND ORIENTED, TAKES AM PILLS WELL WITHOUT ANY PROBLEM SWALLOWING, BOWEL TONES HYPOACTIVE IN ALL FOUR QUADRANTS, MARIEE CATHETER IN PLACE, SCD'S IN PLACE, CALL LIGHT IN REACH, WILL CONTINUE TO MONITOR.
--- NOTE | 2019-01-12 10:00 | NUR ---
PT/OT IN TO WORK WITH PATIENT, ABLE TO SIT PATIENT AT SIDE OF BED FOR ABOUT 3 MINUTES, PATIENT REFUSED FURTHER WORK, WANTS TO SLEEP, CALL LIGHT IN REACH, WILL CONTINUE TO MONITOR.
--- NOTE | 2019-01-12 14:24 | NUR ---
FRIEND AT BEDSIDE VISITING BRIEFLY, PATIENT CONTINUES ON CPAP, REFUSES TO USE NC AND ALSO REFUSED DAILY CARE, STATED "I AM TIRED, I JUST WANT TO SLEEP", CALL LIGHT IN REACH, WILL CONTINUE TO MONITOR.
--- NOTE | 2019-01-12 17:22 | NUR ---
DR. FIGUEROA IN TO SEE PATIENT, NEW ORDERS RECEIVED.
--- NOTE | 2019-01-12 17:27 | NUR ---
SHIFT SUMMARY NOTE: PATIENT CONTINUES TO BE SOMNOLENT, VERY RELUCTANT TO WORK WITH PT/OT, ALSO TAKES OFF CPAP ONLY BRIEFLY, WHILE TAKING MEDICATION PATIENT IS ON 4L NC, HOWEVER, APPEARS ANXIOUS AND WANTS TO GO RIGHT BACK ON CPAP, PATIENT SHOWED NO GREAT APPETITE AND ATE ONLY THE FRUIT CUPS THAT CAME WITH TRAYS, SLIGHTLY ELEVATED BLOOD PRESSURE THIS AFTERNOON, CONCERNS WERE DISCUSSED WITH DR. FIGUEROA, PATIENT WAS A LITTLE MORE INVOLVED WHILE VISITORS WERE AT BEDSIDE, BUT CONTINUED TO WEAR CPAP MASK, FOR DETAILS SEE SHIFT ASSESSMENT DOCUMENTATION AND NURSES NOTES, CALL LIGHT IN REACH, WILL CONTINUE TO MONITOR.
--- NOTE | 2019-01-12 17:52 | NUR ---
PATIENT TO BE MOVED TO PCU ROOM 14, CALLED EVELYN CHICAS TO INQUIRE ABOUT ROOM HAVING BEEN CLEANED, PATIENT IS STILL IN ROOM, SHE WILL CALL ME SOON PATIENT HAS BEEN MOVED AND ROOM IS BEING CLEANED.
--- NOTE | 2019-01-12 18:03 | NUR ---
RADIOLOGY CALLED ABOUT ORDERED CT CHEST W/O CONTRAST, PATIENT WILL NEED RESPIRATORY THERAPY BECAUSE OF HIGH ANXIETY AND AIR HUNGER, RESPIRATORY THERAPY NOTIFIED, THEY ARE AT SHIFT CHANGE AND NEXT SHIFT WILL CONTACT THIS RN.
--- NOTE | 2019-01-12 18:15 | NUR ---
Telephone report received from SHARON Menjivar. Anticipate pt arrival to PCU 14 after the room has been cleaned.
--- NOTE | 2019-01-12 18:18 | NUR ---
REPORT CALLED TO EVELYN CHICAS RN, FOR PCU ROOM 14, SHE WILL CALL WHEN ROOM HAS BEEN CLEANED.
[2019-01-13 04:02] LABS: BASOPHILS ABSOLUTE AUTO 0.02 K/mm3 (0.00-0.23); BASOPHILS PERCENT AUTO 0 % (0-2); EOSINOPHILS PERCENT AUTO 1 % (0-6); Hematocrit 31.7 % (37.0-53.0); Hemoglobin 9.6 g/dL (13.5-17.5); IMMATURE GRAN ABSOLUTE AUTO 0.03 K/mm3 (0.00-0.10); IMMATURE GRAN PERCENT AUTO 0 % (0-1); LYMPHOCYTES ABSOLUTE AUTO 0.24 K/mm3 (0.84-5.20); LYMPHOCYTES PERCENT AUTO 3 % (21-46); MONOCYTES ABSOLUTE AUTO 0.18 K/mm3 (0.16-1.47); MONOCYTES PERCENT AUTO 2 % (4-13); Mean Corpuscular HGB 29.2 pg (26.0-34.0); Mean Corpuscular HGB Conc 30.3 g/dL (31.5-36.5); Mean Corpuscular Volume 96 fL (80-100); Mean Platelet Volume 11.2 fL (9.1-12.4); NEUTROPHILS ABSOLUTE AUTO 8.69 K/mm3 (1.96-9.15); NEUTROPHILS PERCENT AUTO 94 % (41-73); Platelet Count 196 K/mm3 (150-400); RDW Coefficient Variation 15.9 % (11.7-14.2); RDW Standard Deviation 55.4 fL (35.1-46.3); Red Blood Cell Count 3.29 M/mm3 (4.30-5.90); White Blood Cell Count 9.26 K/mm3 (4.00-11.30)
[2019-01-13 04:19] LABS: Anion Gap 5 mmol/L (6-16); Blood Urea Nitrogen 42 mg/dL (8-24); Bun/Creatinine Ratio 35.3 (12.0-20.0); CO2, Blood 34 mmol/L (21-32); Calcium, Blood 8.8 mg/dL (8.5-10.1); Chloride, Blood 108 mmol/L (98-108); Creatinine, Blood 1.19 mg/dL (0.60-1.20); Glomerular Filtration Rate >60 (60-); Glucose, Blood 103 mg/dL (70-99); Magnesium, Blood 2.4 mg/dL (1.6-2.4); Phosphorus, Blood 2.2 mg/dL (2.5-4.9); Potassium, Blood 3.7 mmol/L (3.5-5.5); Sodium, Blood 147 mmol/L (136-145)
--- NOTE | 2019-01-13 06:49 | NUR ---
PCU NOC SHIFT SUMMARY PATIENT ALERT AND ORIENTED TO SELF, LOCATION AND PARTS OF SITUATION. PATIENT CONFUSED TO TIME/DATE AND DID HAVE A PERIOD OF TIME WERE HE CALLED OUT FOR HIS , PATIENT EDUCATED TO LOCATION AND REORIENTED. PATIENT BECOME ANXIOUS AND SOB EASILY - CPAP WORN T/O SHIFT DEPENDANTLY - PATIENT BECOME ANXIOUS WHEN CPAP NOT IN PLACE. PATIENT ENCOURAGE TO TURN AND REPOSITION Q2HR. PATIENT GIVEN A BED BATH WITH GABRIEL AND CATH CARE PERFORMED THIS SHIFT. BUTTOCK AREA AND GABRIEL EXORIATED - PICTURE IN CHART. PATIENT DENIES PAIN T/O SHIFT. PATIENT REMAINS ON CPAP WITH 6 LPM BLEED IN AND 6 LPM NC WHEN OFF CPAP. L/S DIM T/O. HEART RATE SHOWED NO ACUTE CHANGES T/O SHIFT - SINUS RHYTHM. WILL CONTINUE TO MONITOR AND REPORT TO EVELYN HASKINS RN.
--- NOTE | 2019-01-13 08:00 | NUR ---
Leonard is alert, cheerful, and pleasantly conversant, mostly appropriate in conversation; however, he could not recall his birthday. He responded intially by giving me his address twice, and finally with a lot of promting he was able to recall his year, then the month and day of . States that he has been bedfast for a year, and has a caregiver at home. Unable to roll over or sit up independently.
--- NOTE | 2019-01-13 11:30 | NUR ---
RPOSITIONED ON LEFT SIDE FOR SUPPOSITORY INSERTION, WELL RELIEF OF PRESSURE ON COCCYX/SACRUM AREA.
--- NOTE | 2019-01-13 11:33 | NUR ---
Leonard stated that he was having difficulty breathing late this morning, and his spo2 was 86-88% on cpap, 6 l/min bleed in. He was grunting/vocalizing, and unable to take deep breaths. He attempted weakly a deep breath and cough, nothing was brought up and the cough sounds dry. No wheezing heard. RT called and the pt's mask was replaced (old one had a tear and this was presumed the cause of poor ventilation) and oxygen delivery increased to 8 l/min with the cpap. Several minutes later the pt felt better, and stated that his breathing was easier. spo2 90-92%. At this time he again desaturated to 86%, but this time with activity of being turned to his left side in the bed for suppository administration and skin care. After a few minutes, all the while on the current cpap settings, 8 l/min, his spo2 and work of breathing returned to where he had been before the activity.
--- NOTE | 2019-01-13 15:14 | NUR ---
Leonard has been "figeting" per his with his mask, continuous oxymetry probe, and pulling off his mask occasionally. This is unusual as he wants to keep the mask on because without it he feels that "I can't breathe". However, he just pulled the mask off, then began shouting for help that he couldn't breathe. After recovery, I asked him why he had taken it off and he said "because I felt like I couldn't breathe". He is mildly forgetful, but apologetic for it.
--- NOTE | 2019-01-13 15:17 | NUR ---
He has been requiring 8 l/min bleed into the cpap to keep spo2 between 90 and 92%. He is relaxed, quiet, and non distressed at this time. states that he takes Paxil and Clonazepam at home for anxiety. He sleeps most of the day, she says.
--- NOTE | 2019-01-13 17:34 | NUR ---
No motivation to eat. States he just feels very full. He was repositioned in High folwer's position before dinner, to help get him in a better position for ventilation. he was instructed on use of Incentive spirometer and flutter valve, and also demonstration of the use of both, although he was unable to successfully coordinate his inspiration with the incentive spirometer and kept blowing into it instead. SHows limited motivation to use them, despite encouragement and explaination from both myself and from Dr. Em earlier.
--- NOTE | 2019-01-13 22:08 | NUR ---
SOB/DISTRESS: AT APPRX 2145 PT SpO2 ALARM SOUNDING. THIS RN FOUND PT WITH CPAP MASK OFF AND SpO2 OXYMETER OFF. PT C/O NOT BEING ABLE TO BREATH NOT RELIEVED BY REPLACING CPAP OR OXYMIZER. PT WITH ACCESSORY MUSCLE USE AND SHALLOW RAPID BREATHING, EXP WHEEZE NOTED AND LITTLE AIR MOVEMENT NOTED. COOPERATIVE EDUCATION COORDINATOR LUIS ARMANDO AND RT TO BEDSIDE. BRONCHODILATERS NOTED NOT ORDERED FROM PREVIOUS ADMIT NOTE. DR. TUCKER NOTIFIED, DUO-NEB Q4 HOURS ORDERED. RT ADJUSTED CPAP SETTING. PT CURRENTLY CALM AND STATED FEELS BETTER. ARMANI RT CURRENTLY AT BEDSIDE GIVEN DUO-NEB TREATMENT.
--- NOTE | 2019-01-13 22:57 | NUR ---
PT SPOUSE AT BEDSIDE. STAYING THE NIGHT IN THE ROOM. PT CALM AND PLEASANT WITH NO COMPLAINTS.
--- NOTE | 2019-01-14 03:15 | NUR ---
UPDATE: PT REMAINS QUIET AND CALM WITH NO FURTHER PANIC, "I CAN'T BREATH" EPISODES. SPOUSE CONTINUES SLEEPING IN CHAIR IN PT'S ROOM. PT WITH CALL LIGHT WITHIN REACH.
[2019-01-14 04:24] LABS: BASOPHILS ABSOLUTE AUTO 0.01 K/mm3 (0.00-0.23); BASOPHILS PERCENT AUTO 0 % (0-2); EOSINOPHILS PERCENT AUTO 0 % (0-6); Hematocrit 31.5 % (37.0-53.0); Hemoglobin 9.7 g/dL (13.5-17.5); IMMATURE GRAN ABSOLUTE AUTO 0.03 K/mm3 (0.00-0.10); IMMATURE GRAN PERCENT AUTO 1 % (0-1); LYMPHOCYTES ABSOLUTE AUTO 0.26 K/mm3 (0.84-5.20); LYMPHOCYTES PERCENT AUTO 4 % (21-46); MONOCYTES ABSOLUTE AUTO 0.15 K/mm3 (0.16-1.47); MONOCYTES PERCENT AUTO 3 % (4-13); Mean Corpuscular HGB 29.4 pg (26.0-34.0); Mean Corpuscular HGB Conc 30.8 g/dL (31.5-36.5); Mean Corpuscular Volume 96 fL (80-100); Mean Platelet Volume 11.5 fL (9.1-12.4); NEUTROPHILS ABSOLUTE AUTO 5.41 K/mm3 (1.96-9.15); NEUTROPHILS PERCENT AUTO 92 % (41-73); Platelet Count 207 K/mm3 (150-400); RDW Coefficient Variation 15.9 % (11.7-14.2); RDW Standard Deviation 54.5 fL (35.1-46.3); White Blood Cell Count 5.86 K/mm3 (4.00-11.30)
[2019-01-14 04:36] LABS: Anion Gap 7 mmol/L (6-16); Blood Urea Nitrogen 48 mg/dL (8-24); Bun/Creatinine Ratio 36.6 (12.0-20.0); CO2, Blood 31 mmol/L (21-32); Calcium, Blood 8.8 mg/dL (8.5-10.1); Chloride, Blood 105 mmol/L (98-108); Creatinine, Blood 1.31 mg/dL (0.60-1.20); Glomerular Filtration Rate 57 (60-); Glucose, Blood 260 mg/dL (70-99); Phosphorus, Blood 3.5 mg/dL (2.5-4.9); Potassium, Blood 4.4 mmol/L (3.5-5.5); Sodium, Blood 143 mmol/L (136-145)
--- NOTE | 2019-01-14 08:50 | NUR ---
RECEIVED REPORT AT SHIFT CHANGE, PT RESTING AND QUIET. PT CONTINUES ON CPAP WITH 8LPM O2 BLEED IN. 24-HOUR URINE COLLECTION IN PROGRESS, COLLECTED URINE AND PLACED IN CONTAINER ON ICE. MARIEE IN PLACE DRAINING TO GRAVITY, BAG IN TUB OF ICE FOR COLLECTION. WILL CONTINUE TO MONITOR AND FOLLOW ORDERS.
--- NOTE | 2019-01-14 11:02 | NUR ---
PT HAD EPISODE OF ANXIETY AND RESTLESSNESS, HE SOMEHOW TOOK APART HIS CPAP AND WAS IN ROOM HOLDING THE PIECES. PT O2 SAT AT 72% WHEN THIS RN ENTERED ROOM, PLACED OXYIMIZER WITH 10LPM ON PATIENT TO HELP RECOVER. RECONNECT CPAP PIECES AND PLACED BACK ON PATIENT, O2 SAT IMPROVED TO 90%, WILL CONTINUE TO MONITOR AND ASSESS. WILL GIVE PAXIL PER DR ORDER AND WILL ASSESS ANXIETY AND TREAT ACCORDINGLY. BED LOCKED AND LOW, HOB ELEVATED.
--- NOTE | 2019-01-14 13:26 | NUR ---
PT STATES THAT HE IS NOT REALLY HUNGRY FOR FOOD. THIS RN EXPLAINED HE STILL NEEDS SOME NUTRITION, PROVIDED A GLUCERNA - STRAWBERRY. PT STATED HE LIKES IT AND IS DRINKING IT. WILL CONTINUE TO MONITOR, FRIENDS AT BEDSIDE VISITING. PT AFFECT HAS IMPROVED THIS AFTERNOON, HE IS MORE ALERT AND TALKATIVE.
--- NOTE | 2019-01-14 16:40 | NUR ---
REMOVED SATURATED MEPILEX FROM RIGHT ELBOW/FOREARM AREA, CLEANED WITH WOUND SPRAY, PAT DRY, REDRESSED WITH NEW MEPILEX BANDAGE.
--- NOTE | 2019-01-14 17:37 | NUR ---
PT HAD A GOOD DAY, PT HAS BEEN SWITCHING BETWEEN HIS O2 VIA OXYIMZER AND HIS CPAP, USING 8 LPM. PT HAS HAD TIMES OF DESATURATION TODAY, MONITORING CLOSELY. MARIEE IN PLACE DRAINING TO GRAVITY. AT BEDSIDE THIS EVENING, ENCOURAGING PATIENT TO EAT DINNER. WILL CONTINUE TO MONITOR AND GIVE REPORT TO CHETNA RN. BED LOCKED AND LOW, SCDS IN PLACE, CALL LIGHT WITHIN EASY REACH.
--- NOTE | 2019-01-14 22:27 | NUR ---
PATIENT RESTING QUIETLY WITH CPAP IN PLACE WITH 8L/ BLEED IN. DURING SHORT BREAKS FROM CPAP ON 8L/NC. PATIENT ABLE TO REMEMBER THAT HE IS AT [facility] AND RECOGNIZING FAMILY WHEN THEY ARE IN THE ROOM. PATIENT IS VERY FORGETFUL AND NEEDING FREQUENT REMINDING TO LEAVE HIS BIOX IN PLACE AND TO NOT REMOVE HIS CPAP MASK WITHOUT ASSISTANCE WITH OXYGEN PLACED. PATIENT RESISTANT TO REPOSITIONING, NEEDING REMINDING TO WHY WE ARE REPOSITIONING HIM. PATIENT DARY PO MEDICATIONS AND AN ENSURE WITH HIS PO MEDICATIONS. PATIENT REFUSING ORAL CARE AT THIS TIME, PLAN TO TRY AGAIN LATER TONIGHT. PATIENTS FAMILY REMINDED OF PATIENTS GLUCOSE BEING ELEVATED AND THAT CANDY WOULD NOT BE A GOOD IDEA.
[2019-01-15 03:43] LABS: BASOPHILS PERCENT AUTO 0 % (0-2); EOSINOPHILS PERCENT AUTO 0 % (0-6); Hematocrit 30.3 % (37.0-53.0); Hemoglobin 9.3 g/dL (13.5-17.5); IMMATURE GRAN ABSOLUTE AUTO 0.04 K/mm3 (0.00-0.10); IMMATURE GRAN PERCENT AUTO 1 % (0-1); LYMPHOCYTES ABSOLUTE AUTO 0.24 K/mm3 (0.84-5.20); LYMPHOCYTES PERCENT AUTO 3 % (21-46); MONOCYTES ABSOLUTE AUTO 0.38 K/mm3 (0.16-1.47); MONOCYTES PERCENT AUTO 4 % (4-13); Mean Corpuscular HGB 28.6 pg (26.0-34.0); Mean Corpuscular HGB Conc 30.7 g/dL (31.5-36.5); Mean Platelet Volume 11.1 fL (9.1-12.4); NEUTROPHILS ABSOLUTE AUTO 8.19 K/mm3 (1.96-9.15); NEUTROPHILS PERCENT AUTO 93 % (41-73); Platelet Count 198 K/mm3 (150-400); RDW Coefficient Variation 15.9 % (11.7-14.2); RDW Standard Deviation 53.6 fL (35.1-46.3); Red Blood Cell Count 3.25 M/mm3 (4.30-5.90); White Blood Cell Count 8.85 K/mm3 (4.00-11.30)
[2019-01-15 03:45] LABS: Mean Corpuscular Volume 93 fL (80-100)
[2019-01-15 04:04] LABS: Alanine Aminotransfer (ALT/SGP 27 U/L (12-78); Albumin, Blood 2.9 g/dL (3.4-5.0); Albumin/Globulin Ratio 0.8 (0.8-1.8); Alk Phos 82 U/L (50-136); Anion Gap 7 mmol/L (6-16); Aspartate Aminotrans (AST/SGOT 13 U/L (12-37); Bilirubin, Total 0.6 mg/dL (0.1-1.0); Blood Urea Nitrogen 60 mg/dL (8-24); CO2, Blood 32 mmol/L (21-32); Calcium, Blood 8.6 mg/dL (8.5-10.1); Chloride, Blood 103 mmol/L (98-108); Globulin, Blood 3.7 g/dL (2.2-4.0); Glomerular Filtration Rate 49 (60-); Glucose, Blood 342 mg/dL (70-99); Magnesium, Blood 2.7 mg/dL (1.6-2.4); Potassium, Blood 4.5 mmol/L (3.5-5.5); Sodium, Blood 142 mmol/L (136-145); Total Protein, Blood 6.6 g/dL (6.4-8.2)
[2019-01-15 04:55] LABS: PCO2 Arterial 51.3 mmHg (35-45); PO2 Arterial 93.8 mmHg (80-100); pH Blood Arterial 7.43 (7.35-7.45)
--- NOTE | 2019-01-15 05:57 | NUR ---
SUMMARY PATIENT SLEEPING OFF AND ON T/O NIGHT WITH CPAP IN PLACE. MASK ON CPAP CHANGED BY RT TO ONE THAT PATIENTS SON BROUGHT IN, PATIENT NOT PULLING ON THE NEW MASK MUCH. AWAKENS EASILY. CONFUSION CONTINUES, PATIENT IMPULSIVE, PULLING IV OUT. REPLACED IV COVERED WITH COBAN AND MESH COVER TO REMIND PATIENT TO KEEP IN PLACE. USING LIFT TO REPOSITION PATIENT IN BED. PATIENT NEEDING ENCOURAGEMENT FOR REPOSITIONING AND ADL CARE.
--- NOTE | 2019-01-15 11:56 | NUR ---
RECEIVED REPORT AND ASSUMED CARE OF PATIENT. HE HAS A CALM BUT WITHDRAWN AFFECT THIS MORNING. PT SEEMS VERY INDECISIVE AND WHEN ASKED QUESTIONS HE OCCASIONALLY WILL ANSWER APPROPRIATELY, THEN HE WILL OCCASIONALLY BE CONFUSED AND BE INAPPROPRIATE. PT CONTINUES TO NOT WANT TO EAT FOOD FROM HIS TRAY. ADDED SUPPLEMENTAL DRINKS, PT TOLERATES THEM WELL AND DRINKS THEM WITHOUT INCIDENT. ENCOURAGING MOVEMENT, PT DOES NOT WANT TO BE MOVED VERY MUCH. WILL CONTINUE TO MONITOR AND FOLLOW ORDERS. BED LOCKED AND LOW, HOB ELEVATED, CALL LIGHT WITHIN EASY REACH.
--- NOTE | 2019-01-15 19:34 | NUR ---
PT HAD A GOOD DAY, HE WORKED WELL WITH OT TODAY AND WAS ABLE TO SIT AT SIDE OF BED FOR 25 MINUTES. PT DISCUSSED HIS CONTINUED NEED FOR CPAP AT BASELINE. PT STATES, "IT JUST FEELS BETTER TO BREATHE WITH IT BLOWING IN ON ME." O2 CONTINUES AT 8LPM BLEED IN ON CPAP, OR 8LPM VIA OXYIMZER, O2 SAT >95%. MARIEE CATH IN PLACE DRAINING CLEAR YELLOW URINE. HOB ELEVATED, CALL LIGHT WITHIN EASY REACH, WILL GIVE REPORT TO CHETNA RN.
--- NOTE | 2019-01-15 22:50 | NUR ---
PCU NIGHTSHIFT ASSUMED CARE OF PT APPROX. 1900. PT A&O X4. ASSESSMENT COMPLETED. VITAL SIGNS STABLE. PT CURRENLTY ON CPAP WITH 8L BLEED IN AND OXYGEN SATS IN 90'S. MARIEE REMAINS IN PLACE, PATENT AND DRAINING. EDEMA NOTED BLE. PT HAS LIMITED MOTION WITH EXTREMITIES. PT ABLE TO ASSIST WITH ROLLING IN BED FOR REPOSTIONING. BED IN LOW POSITION, CALL LIGHT IN REACH AND PT DENIES ANY NEEDS AT THIS TIME WILL CONTINUE TO MONITOR.
[2019-01-16 04:19] LABS: BASOPHILS PERCENT AUTO 0 % (0-2); EOSINOPHILS PERCENT AUTO 0 % (0-6); Hematocrit 31.3 % (37.0-53.0); Hemoglobin 9.7 g/dL (13.5-17.5); IMMATURE GRAN ABSOLUTE AUTO 0.05 K/mm3 (0.00-0.10); IMMATURE GRAN PERCENT AUTO 1 % (0-1); LYMPHOCYTES ABSOLUTE AUTO 0.36 K/mm3 (0.84-5.20); LYMPHOCYTES PERCENT AUTO 4 % (21-46); MONOCYTES ABSOLUTE AUTO 0.43 K/mm3 (0.16-1.47); MONOCYTES PERCENT AUTO 5 % (4-13); Mean Corpuscular HGB 29.4 pg (26.0-34.0); Mean Corpuscular Volume 95 fL (80-100); Mean Platelet Volume 12.1 fL (9.1-12.4); NEUTROPHILS ABSOLUTE AUTO 8.09 K/mm3 (1.96-9.15); NEUTROPHILS PERCENT AUTO 91 % (41-73); Platelet Count 203 K/mm3 (150-400); RDW Coefficient Variation 15.8 % (11.7-14.2); RDW Standard Deviation 54.9 fL (35.1-46.3); White Blood Cell Count 8.93 K/mm3 (4.00-11.30)
[2019-01-16 04:36] LABS: Albumin, Blood 2.9 g/dL (3.4-5.0); Anion Gap 5 mmol/L (6-16); Blood Urea Nitrogen 63 mg/dL (8-24); Bun/Creatinine Ratio 44.4 (12.0-20.0); CO2, Blood 32 mmol/L (21-32); Calcium, Blood 8.6 mg/dL (8.5-10.1); Chloride, Blood 104 mmol/L (98-108); Creatinine, Blood 1.42 mg/dL (0.60-1.20); Glomerular Filtration Rate 52 (60-); Glucose, Blood 266 mg/dL (70-99); Magnesium, Blood 2.8 mg/dL (1.6-2.4); Phosphorus, Blood 3.5 mg/dL (2.5-4.9); Potassium, Blood 4.3 mmol/L (3.5-5.5); Sodium, Blood 141 mmol/L (136-145)
--- NOTE | 2019-01-16 05:21 | NUR ---
SHIFT SUMMARY PT PLEASANT, COOPERATIVE AND USES CALL LIGHT APPROPRIATELY. ASSESSMENT FINDINGS REMAIN UNCHANGED. VITAL SIGNS STABLE. MARIEE REMAIN IN PLACE, PATENT AND DRAINING. TURNED PT EVERY TWO HOURS T/O SHIFT. PT WORSE CPAP ALL NIGHT AND WAS ABLE TO REST ALL NIGHT. OXYGEN SATS REMAINED IN 90'S WITH THIS. BED IN LOW POSITION, CALL LIGHT IN REACH AND PT DENIES ANY NEEDS AT THIS TIME. WILL CONTINUE TO MONITOR UNTIL HANDOFF TO DAYSHIFT RN
--- NOTE | 2019-01-16 15:03 | NUR ---
DR EDGAR TO SEE THE PATIENT. DISCUSSED PT O2 NEEDS, HOME DOSE IS 2 LPM, WHILE PATIENT IS SITTING IN CHAIR VISITING WITH DOCTOR, BEGAN TITRATING O2 AND CURRENTLY ON 2 LPM VIA NC IN MOUTH. PT IS TOLERATING WELL. SAID TITRATE TO O2 SAT BETWEEN 92-95%. WILL WATCH CLOSELY.
--- NOTE | 2019-01-16 18:36 | NUR ---
PT HAD TURNED A BIG CORNER TODAY, HE IS UP IN THE CHAIR AND COMMUNICATING APPROPRIATELY. HE IS DEPRESSED AND A BIT DOWNTRODDEN DUE TO THE HEALTH CONDITION OF HE AND HIS , DISCUSSED WITH PATIENT AND PROVIDED THERAPEUTIC LISTENING. PT ATE ALL THREE MEALS TODAY AND WORKED WITH PT AND OT. THIS RN WAS ABLE TO TITRATE O2, SEE PRIOR NOTE. PT CURRENTLY ON 2LPM VIA NC. WILL CONTINUE TO MONITOR AND GIVE REPORT TO NOC RN.
--- NOTE | 2019-01-17 00:12 | NUR ---
NOTE EVENING BLOOD SUGAR 402. PHYSICIAN NOTIFIED OF THIS. RECIEVED NEW ORDERS. RECHECKED BLOOD SUGAR AND IT IS NOW 303. NOTIFIED PHYSICIAN. NO NEW ORDERS AT THIS TIME.
[2019-01-17 04:39] LABS: Hematocrit 29.8 % (37.0-53.0); Hemoglobin 9.1 g/dL (13.5-17.5)
[2019-01-17 04:53] LABS: Albumin, Blood 2.8 g/dL (3.4-5.0); Anion Gap 5 mmol/L (6-16); Blood Urea Nitrogen 64 mg/dL (8-24); Bun/Creatinine Ratio 45.7 (12.0-20.0); CO2, Blood 33 mmol/L (21-32); Calcium, Blood 8.4 mg/dL (8.5-10.1); Chloride, Blood 105 mmol/L (98-108); Glomerular Filtration Rate 53 (60-); Glucose, Blood 237 mg/dL (70-99); Magnesium, Blood 2.8 mg/dL (1.6-2.4); Phosphorus, Blood 2.8 mg/dL (2.5-4.9); Potassium, Blood 4.1 mmol/L (3.5-5.5); Sodium, Blood 143 mmol/L (136-145)
--- NOTE | 2019-01-17 05:20 | NUR ---
PCU NIGHTSHIFT ASSUMED CARE OF PT APPROX. 1900. PT A&OX4. PT UP IN CHAIR AT THIS TIME, WITH OXYGEN VIA N.C. AND SATS IN 90'S. ASSESSMENT COMPLETED. VITAL SIGNS STABLE. 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 PT VITAL SIGNS STABLE. MARIEE IN PLACE, PATENT AND DRAINING. COMPLETED LINEN CHANGED AND CLEANED PT SKIN ON BUTTOCKS ARE AT THIS TIME. BED IN LOW POSITION, CALL LIGHT IN REACH.
--- NOTE | 2019-01-17 05:22 | NUR ---
SHIFT SUMMARY PT PLEASANT AND COOPERATIVE. PT REMAINS A&OX4. ASSESSMENT FINDINGS REMAIN UNCHANGED. VITAL SIGNS STABLE. MARIEE REMAINS IN PLACE, PATENT AND DRAINING. ENCOURAGED PT TO PARTICIPATE IN CARE AND HELP WITH ROLLING AND REPOSITIONING. PT WAS ABLE TO SLEEP FOR MOST OF SHIFT. REPOSITIONED EVERY 2 HOURS. PT WORE CPAP FOR ENTIRE SHIFT. BED IN LOW POSITION, CALL LIGHT IN REACH AND PT DENIES ANY NEEDS AT THIS TIME. WILL CONTINUE TO MONITOR UNTIL HANDOFF TO DAYSHIFT RN.
--- NOTE | 2019-01-17 11:23 | NUR ---
AM NOTE. ASSUMED CARE OF PT APROX 0700, PT IS A&Ox4 AND CURRENTLY BED BOUND DUE TO DECONDITIONING AND SEVERE OBESITY. PT'S BUTTOCKS IS EXCORIATED AND HAS STAGE 1 PRESSURE ULCER, THE AREA IS STILL BLANCHABLE BUT THE PT'S BUTTOCKS IS DEEP PURPLE. PT IS CURRENTLY BEING TURNED Q2 AND WAITING FOR BARIATRIC BED TO PROVIDE MORE ROOM TO HELP GET THE PT COMPLETELY OFF HIS BUTTOCKS. PT HAS YEASY RASH IN ALL OF HIS OTHER FOLDS INCLUDING HIS GROIN, THIS AREA WAS CLEANED AND NYSTANTIN WAS APPLIED. TELE INTACT, SR W/FIRST DEGREE AND BBB IN THE 60'S PER SOCIAL WORKER CLINICAL. PT'S BP 167/69. PT HAS 3+ PITTING EDEMA TO HIS BLE AND GENERALIZED EDEMA EVERYWHERE ELSE. L/S CLEAR T/O AND DIM IN THE BASES, PT IS CURRENTLY ON 5L NC OR 5L BLEED IN TO HIS CPAP FOR SLEEP. BT PRESENT BY HYPOACTIVE, ABD IS DISTENDED AND FIRM BUT NONTENDER TO PALP. CALL LIGHT IN REACH, WILL CONTINUE TO MONITOR.
--- NOTE | 2019-01-17 18:28 | NUR ---
PATIENT ARRIVED TO THE UNIT AT 1630. IS AT THE BEDSIDE. PATIENT IS ALERT AND ORIENTED AND COOPERATIVE WITH CARE. CALLS APPROPRIATELY. EXCORIATIONS ON BUTTOCKS, IN BARIATRIC BED, Q2H TURNS. WILL CONTINUE TO MONITOR.
--- NOTE | 2019-01-18 03:50 | NUR ---
SHIFT SUMMARY PT ADMITTED WITH ELEVATED TROPONIN. CONTACT ISOLATION FOR MRSA IN NARES. DNR. ADA DIET. CATHETER. SCDS FOR DVT PROPHYLAXIS. ON CONTINUOUS BIOX. 1000 ML FLUID RESTRICTION. PT IS A LIFT FOR TRANSFER AT THIS TIME DUE TO WEAKNESS AND SOB. THE PT IS WHEELCHAIR BOUND AT BASELINE. ON 3L O2 VIA NC, 2L CONTINUOUS IS THE PTS BASELINE WITH 3L WHILE ON CPAP. WHICH, THE PT HAS BEEN WEARING QUITE OFTEN WHILE IN THE HOSPITAL. 20G IV TO L WRIST. THE PLAN IS TO DISCHARGE THE PT TO A SNF, BUT THE PT IS RESISTENT TO THIS PLAN AND WANTS TO GO STRAIGHT HOME. TAKES MEDICATIONS WHOLE. THE PT TRANSFERRED FROM THE DC WHERE HE PRESENTED WITH C/O SOB AND REFRACTORY COUGH WITH MILDLY ELEVATED TROPONIN AND LATERAL ST ABNORMALITY NOTED ON EKG WITH AN INCREASE [id number]. THE PT WAS NOTED TO HAVE ACUTE HYPOXEMIC RESPIRATORY FAILURE SECONDARY TO CHF EXACERBATION. THE PT CONTINUES TO PRESENT WITH SOB WITH ACTIVITY BUT REPORTS THAT HE FEELS THAT HIS CONDITIONED HAS IMPROVED. THE PT HAS BEEN WEARING HIS CPAP THE MAJORITY OF THE SHIFT SO FAR. THE PT HAS APPEARED TO BE SLEEPING COMFORTABLY MOST OF THE SHIFT, EASILY AWAKENS WITH CARE, ABLE TO MAKE NEEDS KNOWN AND CALL LIGHT IN REACH. PT ON SPECIALTY AIR BED.
[2019-01-18 05:32] LABS: Hematocrit 31.7 % (37.0-53.0); Hemoglobin 9.8 g/dL (13.5-17.5)
[2019-01-18 05:59] LABS: Albumin, Blood 2.9 g/dL (3.4-5.0); Anion Gap 2 mmol/L (6-16); Blood Urea Nitrogen 67 mg/dL (8-24); Bun/Creatinine Ratio 45.3 (12.0-20.0); CO2, Blood 36 mmol/L (21-32); Calcium, Blood 8.7 mg/dL (8.5-10.1); Chloride, Blood 106 mmol/L (98-108); Creatinine, Blood 1.48 mg/dL (0.60-1.20); Glomerular Filtration Rate 49 (60-); Glucose, Blood 217 mg/dL (70-99); Magnesium, Blood 2.9 mg/dL (1.6-2.4); Phosphorus, Blood 3.1 mg/dL (2.5-4.9); Potassium, Blood 4.6 mmol/L (3.5-5.5); Sodium, Blood 144 mmol/L (136-145)
--- NOTE | 2019-01-18 17:21 | NUR ---
SHIFT SUMMARY PATIENT A&O X4, Q2 REPOSITION. LIFT PATIENT. DENIES ANY PAIN. C/O SOB WITH ANY ACTIVITY. O2 @ 3L NC. WEARS CPAP WL 3L BL AT NIGHT AND DURING THE DAY WHILE SLEEPING. UP TO CHAIR FOR LUNCH. LIFT TO CHAIR AND BACK TO BED. ACHS. BLOOD PRESSURE TRENDING UP T/O THE SHIFT. MEDICATED PER Sep. DR. EDGAR IS AWARE. IS AT THE BEDSIDE. NO OTHER ACUTE CHANGES THIS SHIFT. RN WILL CONTINUE TO MONITOR.
--- NOTE | 2019-01-19 04:43 | NUR ---
ROTARY FILTER OPERATOR SUMMARY NO ACUTE CHANGES THIS SHIFT. PT AAOX4 AND PLEASANT. ON CPAP AT NIGHT WITH 3L O2 BLEED IN WHICH IS WHAT HE USES AT BASELINE. SBP HAS BEEN CONSISTENT IN 180'S SINCE EARLY DAY SHIFT. PER DAY SHIFT RN, DR EDGAR WAS MADE AWARE OF THE HIGH BP AND GAVE NO ADDITIONAL ORDERS. PT CONTINUES TO HAVE SIGNIFICANT EDEMA ON BLE'S, HOWEVER HAS HAD GOOD URINE OUTPUT TONIGHT. WILL CONTINUE TO MONITOR.
[2019-01-19 06:08] LABS: Hematocrit 33.5 % (37.0-53.0); Hemoglobin 10.3 g/dL (13.5-17.5)
[2019-01-19 06:16] LABS: Albumin, Blood 2.8 g/dL (3.4-5.0); Anion Gap 6 mmol/L (6-16); Blood Urea Nitrogen 66 mg/dL (8-24); Bun/Creatinine Ratio 47.1 (12.0-20.0); CO2, Blood 32 mmol/L (21-32); Calcium, Blood 8.5 mg/dL (8.5-10.1); Chloride, Blood 107 mmol/L (98-108); Glomerular Filtration Rate 53 (60-); Glucose, Blood 114 mg/dL (70-99); Magnesium, Blood 2.6 mg/dL (1.6-2.4); Phosphorus, Blood 3.1 mg/dL (2.5-4.9); Potassium, Blood 3.9 mmol/L (3.5-5.5); Sodium, Blood 145 mmol/L (136-145)
--- NOTE | 2019-01-19 16:44 | NUR ---
shift summary patient pleasant, no acute concerns at this time. patients iv patent and flows well. he was changed today. did notice some excoriation of skin on his buttocks. patient was unable to let us know that he had a bowel movement and stated he thought it was just gas. at this time patient has been refusing q2 turns and will need to be checked often to make sure that he is not soiled.
[2019-01-20 05:38] LABS: Hematocrit 34.9 % (37.0-53.0); Hemoglobin 10.7 g/dL (13.5-17.5)
--- NOTE | 2019-01-20 05:45 | NUR ---
TAILOR GARMENT FITTER SUMMARY PT AAOX4 AND PLEASANT. BP MUCH IMPROVED TONIGHT AFTER HYDRALAZINE WAS CHANGED TO CLONIDINE PER MED ORDERS. SBP THIS AM IN 120'S, DOWN FROM 180'S. IMPROVEMENT NOTED IN BLE EDEMA. PT WAS ABLE TO STAND A FEW TIMES WITH PT DURING DAY SHIFT AND SAID HE WANTS TO CONTINUE TO TRY TO AMBULATE SO THAT HE CAN WALK WITH A FWW AGAIN. VSS, WILL CONTINUE TO MONITOR.
[2019-01-20 05:59] LABS: Albumin, Blood 2.8 g/dL (3.4-5.0); Anion Gap 3 mmol/L (6-16); Blood Urea Nitrogen 65 mg/dL (8-24); Bun/Creatinine Ratio 48.9 (12.0-20.0); CO2, Blood 37 mmol/L (21-32); Calcium, Blood 8.6 mg/dL (8.5-10.1); Chloride, Blood 106 mmol/L (98-108); Creatinine, Blood 1.33 mg/dL (0.60-1.20); Glomerular Filtration Rate 56 (60-); Glucose, Blood 120 mg/dL (70-99); Magnesium, Blood 2.6 mg/dL (1.6-2.4); Phosphorus, Blood 3.8 mg/dL (2.5-4.9); Potassium, Blood 4.9 mmol/L (3.5-5.5); Sodium, Blood 146 mmol/L (136-145)
--- NOTE | 2019-01-20 16:51 | NUR ---
PATIENT A/OX4, UP TO CHAIR WITH LIFT. WORKED WITH PT TODAY AND IS ABLE TO STAND WITH ASSIST FOR A SHORT TIME. MARIEE TO GRAVITY DRAINING ADEQUATE AMOUNT OF YELLOW URINE. TAKES PILLS WHOLE WITH WATER. 1L FLUID RETRICTION, PATIENT IS COMPLIANT WITH THIS. NYSTATIN TO FOLDS. DRESSING COVERING ABRASION ON R FA REMAINS C/D/I. DENIES ANY PAIN. 2LO2 VIA NC, CPAP AT NOC, CONT PULSE OX. ADA DIET, ACHS BLOOD SUGARS. PLAN IS FOR PATIENT TO GO HOME WITH HOME HEALTH, PATIENT REFUSING SNF.
--- NOTE | 2019-01-20 16:56 | NUR ---
Initial Visit: Palliative Care Consult for Cardiac, Pulmonary, Renal, and Symptom Management. Pt is A&OX4 and denies pain at this time. Pt denies dyspnea at this time but does report SOB with exertion. Pt denies nausea and anxiety. Engaged in therapeutic discussion regarding goals of care. Pt reports living at home with his and is of [employer]. He reports adequate support at home between his and [facility] in [facility]. Pt states he receives 20 hours a week of investigation specialist support. Engaged in discussion regarding his chronic conditions. Educated on disease process and trajectory of disease. Encouraged Pt to have routine communication with PCP on disease in order to plan accordingly. Educated Pt on the high risk readmission program for his COPD and CHF. Pt denies need at this time. Listened as Pt explained his reasoning for wanting home health PT instead of SNF. Educated on the importance of complying with doctors recommendations. He states he will consider SNF if home health is not successfull and ends up back into the hospital. Pt reports no other concerns at this time. Spoke with bedside nurse Romy and she reports no concerns at this time. Palliatiave Care will remain available.
[2019-01-21 05:22] LABS: Hematocrit 31.1 % (37.0-53.0); Hemoglobin 9.7 g/dL (13.5-17.5)
[2019-01-21 05:49] LABS: Albumin, Blood 2.6 g/dL (3.4-5.0); Anion Gap 2 mmol/L (6-16); Blood Urea Nitrogen 67 mg/dL (8-24); Bun/Creatinine Ratio 48.2 (12.0-20.0); CO2, Blood 37 mmol/L (21-32); Calcium, Blood 8.3 mg/dL (8.5-10.1); Chloride, Blood 105 mmol/L (98-108); Creatinine, Blood 1.39 mg/dL (0.60-1.20); Glomerular Filtration Rate 53 (60-); Glucose, Blood 137 mg/dL (70-99); Magnesium, Blood 2.5 mg/dL (1.6-2.4); Phosphorus, Blood 3.5 mg/dL (2.5-4.9); Sodium, Blood 144 mmol/L (136-145)
--- NOTE | 2019-01-21 06:38 | NUR ---
SHIFT SUMMARY PT IS A 73 Y/O MALE, ADMITTED FOR ELEVATED TROPONINS AND CHF EXACERBATION. HE IS A&O X 3, AND CURRENTLY ON BEDREST. NO COMPLAINTS OF PAIN, NAUSEA OR SOB. PT SLEPT WELL DURING THE NIGHT. PT'S BP WAS ELEVATED DURING PM VITALS AT 191/78, WHICH CAME DOWN TO 170/69 AFTER RECEIVING PO BP MEDS, AND WAS DOWN TO 121/51 DURING AM VITALS. ALL OTHER VITALS STABLE. NO OTHER ACUTE CHANGES IN PT CONDITION NOTED. WILL CONTINUE TO MONITOR AND TREAT PER EMAR UNTIL HAND OFF TO DAY SHIFT.
--- NOTE | 2019-01-21 09:36 | NUR ---
Pt visit this AM. Pt is lying in bed upon arrival. Bedside nurse Romy is present providing medications. Verfied insulin to be administered with Romy. Discussed current POLST on file with Pt. Current POLST reads Pt wants CPR and Limited Treatment. Pt's current code status in DNR. Pt reports POLST on file does not reflect current wishes. Assisted Pt in completing new POLST and educated on life sustaining measures including risk factors. New POLST completed with Pt's wishes are DNR and Limited Treatment. Plan: Will obtain copy of POLST upon MD signature and will fax to medical records. Palliative Care will remain available.
--- NOTE | 2019-01-21 17:21 | NUR ---
PATIENTS BED DOES NOT HAVE A TRAPEZE NELSON. DR. MO ORDERED FOR PATIENT TO HAVE A TRAPEZE, BUT PATIENT DOES NOT WANT TO TRADE BEDS SINCE HE IS HOPING TO D/C TOMORROW. PATIENT INSTRUCTED TO LET STAFF KNOW IF HE CHANGES HIS MINDS.
--- NOTE | 2019-01-21 18:18 | NUR ---
NO ACUTE CHANGES THIS SHIFT. PATIENT UP WITH LIFT AND NEEDS ASSISTACE TURNING Q2 HOURS. DENIES ANY PAIN. 2LO2 TO MAINTAIN SATS, CPAP AT NOC. 20G IV TO L HAND WNL AND SL. 1L FLUID RESTRCITION. MUTLIPLE SKIN ISSUES, PICTURES IN CHART. A/OX4, CALLS APPROPRIATELY FOR ASSISTANCE. PLANS TO D/C SOON TOMORROW TO HOME WITH . ACHS BLOOD SUGARS, COVERAGE NEEDED FOR MEALS.
[2019-01-22 04:41] LABS: Hematocrit 29.7 % (37.0-53.0); Hemoglobin 9.3 g/dL (13.5-17.5)
[2019-01-22 04:56] LABS: Albumin, Blood 2.6 g/dL (3.4-5.0); Anion Gap 4 mmol/L (6-16); Blood Urea Nitrogen 71 mg/dL (8-24); Bun/Creatinine Ratio 45.5 (12.0-20.0); CO2, Blood 35 mmol/L (21-32); Chloride, Blood 104 mmol/L (98-108); Creatinine, Blood 1.56 mg/dL (0.60-1.20); Glomerular Filtration Rate 47 (60-); Glucose, Blood 183 mg/dL (70-99); Magnesium, Blood 2.5 mg/dL (1.6-2.4); Phosphorus, Blood 3.7 mg/dL (2.5-4.9); Potassium, Blood 4.4 mmol/L (3.5-5.5); Sodium, Blood 143 mmol/L (136-145)
--- NOTE | 2019-01-22 06:35 | NUR ---
SHIFT SUMMARY PT IS A 73 Y/O MALE, ADMITTED FOR ELEVATED TROPONINS AND FLUID OVERLOAD. PT IS A&O X 3, THOUGH OCCASIONALLY FORGETFUL. HE DENIED ANY COMPLAINTS OF PAIN, NAUSEA OR SOB, AND SLEPT WELL DURING THE NIGHT. VITALS REMAINED STABLE ON 3L OF O2. NO OTHER ACUTE CHANGES IN PT CONDITION NOTED. WILL CONTINUE TO MONITOR AND TREAT PER EMAR UNTIL HAND OFF TO DAY SHIFT.
--- NOTE | 2019-01-22 18:56 | NUR ---
ALERT. ORIENTED. MARIEE TO GRAVITY, DRAINING. ON DIURETICS. IV PATENT. ABLE TO STAND PIVOT TO CHAIR, BUT NEEDS LIFT BACK TO BED.CLEARING FOR MRSA SENT TO LAB. JOY. WENDY. REPORT TO NIGHT RN.
--- NOTE | 2019-01-23 03:52 | NUR ---
SHIFT SUMMARY NO APPARENT ACUTE CHANGES NOTED SO FAR THIS SHIFT. PT APPEARS TO BE GENERALLY FEELING BETTING AND STATES THAT HE IS READY TO GO HOME. PT IS POSSIBLE DISCHARGE TODAY. IS CURRENTLY SLEEPING AT BEDSIDE. THE PATIENT WOULD PREFER TO TAKE MEDICATIONS WHOLE WITH APPLESAUCE SO THAT PT DOES NOT HAVE TO USE FLUIDS FOR MEDICATIONS WITH 1000 ML FLUID RESTRICTION. THE PT IS CURRENTLY ON CPAP AND APPEARS TO BE SLEEPING COMFORTABLY WITH NO APPARENT SIGNS OF ACUTE DISTRESS. ABLE TO MAKE NEEDS KNOWN AND CALL LIGHT IN REACH.
[2019-01-23 04:54] LABS: Hemoglobin 10.3 g/dL (13.5-17.5)
[2019-01-23 05:16] LABS: Albumin, Blood 2.8 g/dL (3.4-5.0); Anion Gap 3 mmol/L (6-16); Blood Urea Nitrogen 80 mg/dL (8-24); Bun/Creatinine Ratio 48.5 (12.0-20.0); CO2, Blood 39 mmol/L (21-32); Calcium, Blood 8.5 mg/dL (8.5-10.1); Chloride, Blood 102 mmol/L (98-108); Creatinine, Blood 1.65 mg/dL (0.60-1.20); Glomerular Filtration Rate 44 (60-); Glucose, Blood 120 mg/dL (70-99); Magnesium, Blood 2.5 mg/dL (1.6-2.4); Phosphorus, Blood 4.3 mg/dL (2.5-4.9); Potassium, Blood 4.1 mmol/L (3.5-5.5); Sodium, Blood 144 mmol/L (136-145)
[2019-01-23] MEDS ORDERED: LOSA25 PO (11:19)
[2019-01-23] MEDS ORDERED: METO5 PO (11:22)
[2019-01-23] MEDS ORDERED: ASPI81CH PO (11:22)
[2019-01-23] MEDS ORDERED: AMLO5 PO (11:22)
[2019-01-23] MEDS ORDERED: Micro-K10 MEQ PO (11:23)
--- NOTE | 2019-01-23 14:03 | NUR ---
ROLDAN HERRERA REVIEWED D'C W/PATIENT. PATIENT AWARE HAS F/U APPT W/[facility] AND TO MAKE APPT W/. LIFT TO W/C. URINATED ONCE POST MARIEE REMOVAL. RIDE TO GET HIM AT 1430.
== END 2019-01-23 14:50 | disposition home or self-care (01) | DRG 291 ==
LOC: ER 12:22 → PCU 12:23 → ICUW 15:18 → MEDS 01-09 09:22 → ICUW 01-09 09:22 → PCU 01-09 09:22 → MEDS 01-17 16:59
PROVIDERS: Emergency Medicine; Hospitalist; Internal Medicine Nephrology; ADMIT Internal Medicine
PROC: 5A09357 Assistance with Respiratory Ventilation, Less than 24 Consecutive Hours, Continuous Positive Airway Pressure (ICD-10-PCS; principal; 2019-01-09)
DX: I13.0 Hypertensive heart and chronic kidney disease with heart failure and stage 1 through stage 4 chronic kidney disease, or unspecified chronic kidney disease (principal); J18.9 Pneumonia, unspecified organism; J96.21 Acute and chronic respiratory failure with hypoxia; I50.43 Acute on chronic combined systolic (congestive) and diastolic (congestive) heart failure; Z68.43 Body mass index [BMI] 50.0-59.9, adult; E66.2 Morbid (severe) obesity with alveolar hypoventilation; E87.0 Hyperosmolality and hypernatremia; J98.11 Atelectasis; I42.0 Dilated cardiomyopathy; I25.10 Atherosclerotic heart disease of native coronary artery without angina pectoris; J44.9 Chronic obstructive pulmonary disease, unspecified; E11.51 Type 2 diabetes mellitus with diabetic peripheral angiopathy without gangrene; E11.319 Type 2 diabetes mellitus with unspecified diabetic retinopathy without macular edema; L30.4 Erythema intertrigo; N18.3 Chronic kidney disease, stage 3 (moderate); Z66 Do not resuscitate; E11.22 Type 2 diabetes mellitus with diabetic chronic kidney disease; Z98.61 Coronary angioplasty status; E78.5 Hyperlipidemia, unspecified; E87.70 Fluid overload, unspecified; E11.21 Type 2 diabetes mellitus with diabetic nephropathy; E83.41 Hypermagnesemia; E88.09 Other disorders of plasma-protein metabolism, not elsewhere classified; E83.39 Other disorders of phosphorus metabolism; E11.65 Type 2 diabetes mellitus with hyperglycemia; I27.20 Pulmonary hypertension, unspecified; Z79.4 Long term (current) use of insulin; Z87.891 Personal history of nicotine dependence
CPT/HCPCS: 36415; 36430; 36600; 51702; 71045; 71250; 74018; 76770; 78582; 80048; 80053; 80069; 81001; 81050; 82043; 82570; 82803; 82947; 83735; 83880; 84100; 84145; 84484; 85014; 85018; 85025; 86850; 86900; 86901; 86923; 87070; 87081; 87086; 87147; 93005; 93010; 94640; 94660; 94760; 94762; 96360; 96372; 96372-59; 97110; 97163; 97166; 97530; 99285-25; A9540; A9558; C8929; G0378; J0456; J0696; J0881; J1650; J1815; J1940; J2920; J7030; J7050; J7060; P9016; Q9957

== ENCOUNTER 2019-02-26 10:05 | Inpatient (IN) | payer OTHER ==
[~2019-02-26] VITALS: Ht 175.3 cm; Wt 151.1 kg
[~2019-02-26 10:05] MED LIST changes: +AMLO5 PO; +Bacid1 EACH PO; +LOSA25 PO; +METO5 PO
[2019-02-26] MEDS ORDERED: KETO15TC TOP (10:46)
[2019-02-26 11:42] LABS: Source, Urine Clean Catch
[2019-02-26 11:47] LABS: Bilirubin, Urine Neg (Neg); Blood, Urine 2+ (Neg); Glucose Qualitative, Urine Neg (Neg); Ketones, Urine Neg (Neg); Leukocyte Esterase, Urine 3+ (Neg); Nitrite, Urine Neg (Neg); Protein, Urine 2+ (Neg); Specific Gravity, Urine 1.015 (1.003-1.022); Urobilinogen, Urine NORM (Normal)
[2019-02-26 11:49] LABS: BASOPHILS ABSOLUTE AUTO 0.03 K/mm3 (0.00-0.23); BASOPHILS PERCENT AUTO 0 % (0-2); EOSINOPHILS PERCENT AUTO 2 % (0-6); Hematocrit 25.2 % (37.0-53.0); Hemoglobin 8.1 g/dL (13.5-17.5); IMMATURE GRAN ABSOLUTE AUTO 0.07 K/mm3 (0.00-0.10); IMMATURE GRAN PERCENT AUTO 1 % (0-1); LYMPHOCYTES ABSOLUTE AUTO 0.43 K/mm3 (0.84-5.20); LYMPHOCYTES PERCENT AUTO 3 % (21-46); MONOCYTES ABSOLUTE AUTO 0.84 K/mm3 (0.16-1.47); MONOCYTES PERCENT AUTO 7 % (4-13); Mean Corpuscular HGB 30.8 pg (26.0-34.0); Mean Corpuscular HGB Conc 32.1 g/dL (31.5-36.5); Mean Corpuscular Volume 96 fL (80-100); Mean Platelet Volume 11.9 fL (9.1-12.4); NEUTROPHILS ABSOLUTE AUTO 11.12 K/mm3 (1.96-9.15); NEUTROPHILS PERCENT AUTO 87 % (41-73); Platelet Count 298 K/mm3 (150-400); RDW Coefficient Variation 16.5 % (11.7-14.2); RDW Standard Deviation 53.7 fL (35.1-46.3); Red Blood Cell Count 2.63 M/mm3 (4.30-5.90); White Blood Cell Count 12.79 K/mm3 (4.00-11.30)
[2019-02-26 12:07] LABS: Albumin, Blood 2.8 g/dL (3.4-5.0); Albumin/Globulin Ratio 0.7 (0.8-1.8); Bilirubin, Total 0.3 mg/dL (0.1-1.0); Bun/Creatinine Ratio 45.3 (12.0-20.0); Calcium, Blood 8.8 mg/dL (8.5-10.1); Creatinine, Blood 5.08 mg/dL (0.60-1.20); Potassium, Blood 3.8 mmol/L (3.5-5.5); Total Protein, Blood 6.8 g/dL (6.4-8.2)
[2019-02-26 12:07] LABS: Appearance, Urine Hazy (Clear); Color, Urine Yellow (P-Yellow)
[2019-02-26 12:09] LABS: Bacteria Mod /hpf; Squamous Epithelial Cells Rare /hpf (Few); White Blood Cells, Urine 50-100 /hpf (0-5)
[2019-02-26 12:48] LABS: International Normalized Ratio 0.99; Prothrombin Time Results 10.5 Sec (9.7-11.5)
[2019-02-26] MEDS ORDERED: INSDET100 SC (14:32)
[2019-02-26] MEDS ORDERED: TAMS.4ER PO (14:33)
[2019-02-26] MEDS ORDERED: Paxil40 MG PO (14:33)
[2019-02-26] MEDS ORDERED: CLON.1 PO (14:33)
[2019-02-26] MEDS ORDERED: CLOP75 PO (14:33)
[2019-02-26] MEDS ORDERED: ASCO500 PO (14:34)
[2019-02-26] MEDS ORDERED: NITR.4SL SL (14:34)
[2019-02-26] MEDS ORDERED: CARV25 PO (14:36)
[2019-02-26] MEDS ORDERED: ACET325 PO (14:36)
[2019-02-26] MEDS ORDERED: GABA300 PO (14:38)
[2019-02-26] MEDS ORDERED: ATORVASTATIN CA80 MG PO (14:38)
[2019-02-26] MEDS ORDERED: LOSA25 PO (14:39)
[2019-02-26] MEDS ORDERED: FINA5 PO (14:39)
[2019-02-26] MEDS ORDERED: FISH OIL 1,2001 EACH PO (14:40)
[2019-02-26] MEDS ORDERED: VITAMIN D31000 UNIT PO (14:41)
[2019-02-26] MEDS ORDERED: Bumetanide2 MG PO (14:42)
[2019-02-26] MEDS ORDERED: ALLO100 PO (14:43)
[2019-02-26] MEDS ORDERED: Fergon240 M1 PO (14:43)
[2019-02-26] MEDS ORDERED: TRAM50 PO (14:44)
[2019-02-26] MEDS ORDERED: ALBU3IS INH (14:44)
[2019-02-26] MEDS ORDERED: Colace100 MG PO (14:46)
[2019-02-26] MEDS ORDERED: OXYM.05NI (14:47)
[2019-02-26] MEDS ORDERED: TRIDERM28.4 GM TOP (14:48)
[2019-02-26] MEDS ORDERED: Nystatin15 GM TOP (14:51)
[2019-02-26] MEDS ORDERED: VANICREAM453 GM TOP (14:52)
[2019-02-26] MEDS ORDERED: NOVOLOG FL100 UNIT/1 SC (15:11)
[2019-02-26] MEDS ORDERED: LACT PO (15:12)
[2019-02-26] MEDS ORDERED: STRIVERDI RESPIM4 GM INH (15:13)
[2019-02-26] MEDS ORDERED: EPOETIN ALFA SC (15:15)
--- NOTE | 2019-02-26 18:07 | NUR ---
ALERT. ORIENTED. PLEASANT. STS BASELINE IS BED BOUND. "LEGS BUCKLE". ONCE IN AWHILE GETS INTO W/C, BUT VERY INFREQUENTLY. PICS OF BUTTOCK WHICH LOOKS EXCORIATED. LEFT HEEL PICS ALSO. MULTIPLE SCABS BLE. LUNGS DIM T/O. BASELINE IS 2 LPM VIA N/C. UNLABORED RESPIRATIONS. IV RT HAND PATENT. CONSULTS TO NEPHROLOGY AND GI CALLED. PER HE WILL BE IN LATER TODAY TO SEE PATIENT AND CAN BE CLEAR LIQUIDS. PER NOT NPO AFTER MIDNITE SO THAT ORDER WAS CANCELLED. TO WRITE REST OF ORDERS AND SHE IS AWARE. WCTM.
[2019-02-27 05:39] LABS: BASOPHILS ABSOLUTE AUTO 0.02 K/mm3 (0.00-0.23); BASOPHILS PERCENT AUTO 0 % (0-2); EOSINOPHILS ABSOLUTE AUTO 0.29 K/mm3 (0.00-0.68); EOSINOPHILS PERCENT AUTO 3 % (0-6); Hematocrit 24.3 % (37.0-53.0); Hemoglobin 7.7 g/dL (13.5-17.5); IMMATURE GRAN ABSOLUTE AUTO 0.05 K/mm3 (0.00-0.10); IMMATURE GRAN PERCENT AUTO 1 % (0-1); LYMPHOCYTES ABSOLUTE AUTO 0.39 K/mm3 (0.84-5.20); LYMPHOCYTES PERCENT AUTO 4 % (21-46); MONOCYTES ABSOLUTE AUTO 0.79 K/mm3 (0.16-1.47); MONOCYTES PERCENT AUTO 8 % (4-13); Mean Corpuscular HGB 30.8 pg (26.0-34.0); Mean Corpuscular HGB Conc 31.7 g/dL (31.5-36.5); Mean Corpuscular Volume 97 fL (80-100); Mean Platelet Volume 11.3 fL (9.1-12.4); NEUTROPHILS ABSOLUTE AUTO 8.65 K/mm3 (1.96-9.15); NEUTROPHILS PERCENT AUTO 85 % (41-73); Platelet Count 269 K/mm3 (150-400); RDW Coefficient Variation 16.7 % (11.7-14.2); White Blood Cell Count 10.19 K/mm3 (4.00-11.30)
[2019-02-27 06:00] LABS: Albumin, Blood 2.6 g/dL (3.4-5.0); Albumin/Globulin Ratio 0.7 (0.8-1.8); Bilirubin, Total 0.3 mg/dL (0.1-1.0); Calcium, Blood 8.2 mg/dL (8.5-10.1); Creatinine, Blood 5.23 mg/dL (0.60-1.20); Globulin, Blood 3.6 g/dL (2.2-4.0); Magnesium, Blood 2.6 mg/dL (1.6-2.4); Potassium, Blood 3.7 mmol/L (3.5-5.5); Total Protein, Blood 6.2 g/dL (6.4-8.2)
--- NOTE | 2019-02-27 06:01 | NUR ---
Shift summary: Pt had had a good evening. Slept well most of shift. CPAP on at hs- tolerating well. .
[2019-02-27 06:08] LABS: Bun/Creatinine Ratio 44.6 (12.0-20.0)
[2019-02-27 12:24] LABS: Hematocrit 25.2 % (37.0-53.0)
--- NOTE | 2019-02-27 18:01 | NUR ---
SHIFT SUMMARY NO ACUTE CHANGES. PATIENT DENIES SHORTNESS OF BREATH AND PAIN. PATIENT HAD ONE EPISODE OF NAUSEA DURING PT BUT IT RESOLVED QUICKLY AND HE DECLINED MEDICATION. PT AND OT WORKED WITH PATIENT. PATIENT REFUSED WEIGHT BEARING STATING HIS LEGS WOULD BUCKLE. DR. CRAIG CONSULTED WITH PATIENT, PATIENT HAS DECLINED ANY PROCEDURE AT THIS TIME. CALL LIGHT IN REACH.
[2019-02-28 04:58] LABS: Hematocrit 23.5 % (37.0-53.0); Hemoglobin 7.4 g/dL (13.5-17.5)
[2019-02-28 05:20] LABS: Albumin, Blood 2.5 g/dL (3.4-5.0); Anion Gap 12 mmol/L (6-16); CO2, Blood 27 mmol/L (21-32); Chloride, Blood 96 mmol/L (98-108); Creatinine, Blood 5.03 mg/dL (0.60-1.20); Glomerular Filtration Rate 12 (60-); Glucose, Blood 81 mg/dL (70-99); Magnesium, Blood 2.4 mg/dL (1.6-2.4); Phosphorus, Blood 7.2 mg/dL (2.5-4.9); Potassium, Blood 3.4 mmol/L (3.5-5.5); Sodium, Blood 135 mmol/L (136-145)
--- NOTE | 2019-02-28 05:28 | NUR ---
Shift summary:Pt having a difficult night. Pt having a hard time tolerating the cpap. pt back on nasal canula. Pt given zofran x 2 for nausea. Pt just seems to have a hard time getting comfortable. Refuses to be turned. at bedside. H& H down to 7 and 23 this am.
[2019-02-28 06:10] LABS: Blood Urea Nitrogen 222 mg/dL (8-24); Bun/Creatinine Ratio 44.1 (12.0-20.0)
--- NOTE | 2019-02-28 12:55 | NUR ---
Initial Visit: Palliative Care Consult for Goals, Medically Fragile, and Medically Fragile. Spoke with Dr Xie prior to Pt visit and discussed case. Dr Xie reports conversation regarding hospice would be appropriate. Pt is A&O and denies pain at this time. Pt denies dyspnea and has 6/7 anxiety. Inquired about cause of anxiety and Pt reports having a bad night and he thought he was going to . Pt's is present during visit. 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 Engaged in therapeutic discussion regarding goals of care. Pt lives at home with his and is bedbound. He [facility] caregiver support through [facility] for 3 hours a day. Inquired about his unwilliness to work with physical therapy. His Marta reports Pt's routine in the morning is not doing much and thinks it is due to Pt not being alert enough to work with physical therapy. Pt confirms Marta's thoghts. Marta suggest that therapy works with him in the afternoon. She also requests that Pt have a trapeze for his bed and states Pt has trapeze on his bed at home. Engaged in discussion regarding chronic illness and educated on his different disease processes. Discussed hospice as an option and educated on hospice philosophy. Pt reports fear of and is not ready to . Instructed Pt that hospice will be available for him at any time he is ready and things to reflect when considering hospice is quality of life, comfort, and values. Pt and reports primary concerns are time frame with working with therapy, extra caregiver support in the home, and request of routine lab draws at home instead of going to the lab. No other concerns reported at this time. Spoke with bedside nurse Keerthi and discussed case. Spoke with Jose Daniel from PT and relayed request. Jose Daniel reports Pt has been discharged from their services. Spoke with OT and relay request. Spoke with caremansonja Hogue and relayed request for extra caregiver support. Spoke with [place] Curriculum Specialist Madeline and relayed Pt's request for lab draws in the home and Pt's decision to not pursue hospice at this time. Madeline reports she will speak with Dr Xie regarding Pt's lab draw request. Palliative Care will remain available.
--- NOTE | 2019-02-28 15:24 | NUR ---
[facility] initial visit: I met with Leonard and his elana , Marta, at bedside. They have been nearly 50 years. Both were tearful that "hospice" had been introduced as an option today. Leonard says he understands that he is nearing end-of-life, and he is not afraid of . He has a strong jourdan, and says, "I know where I am going." But he also states he does not want to leave his family. The thought of this makes him more tearful. I gently explained that "hospice" is often given as an option to pt's with chronic, progressive illnesses. It does not mean that his is immenent. I helped him explore his beliefs regarding God's plan for him. Leonard tells me that he thinks he will "know" when it's time to surrender. "It's not time now." Both Leonard and Marta responded well to me. They appered to benefit from spiritual direction and prayer. I will continue to provide services as schedule permits.
--- NOTE | 2019-02-28 15:41 | NUR ---
SHIFT SUMMARY NO ACUTE CHANGES. PATIENT DENIES SHORTNESS OF BREATH, REPORTS NAUSEA ONLY WHEN PT/OT ATTEMPTS TO WORK WITH PATIENT. MEDICATED X 1 FOR PAIN. REFUSED/WAS UNABLE TO SCOOT TO EDGE OF BED WITH PT. PALLIATIVE CARE MET WITH PATIENT AND SPOUSE. PATIENT RECIEVED ONE BAG OF RBC'S TODAY. CALL LIGHT IN REACH.
[2019-02-28 17:19] LABS: Hematocrit 26.7 % (37.0-53.0); Hemoglobin 8.6 g/dL (13.5-17.5)
--- NOTE | 2019-02-28 22:24 | NUR ---
6970 PHYSICIAN CORRESPONDENCE PATIENT HAS NOT TAKEN IN MUCH PO INTAKE PER . BLOOD SUGAR THIS NIGHT WAS 164. NEW ORDER TO GIVE LANTUS 30 UNITS. ON-CALL STATES TO HOLD LANTUS FOR THE NIGHT.
[2019-03-01 05:21] LABS: BASOPHILS ABSOLUTE AUTO 0.02 K/mm3 (0.00-0.23); BASOPHILS PERCENT AUTO 0 % (0-2); EOSINOPHILS PERCENT AUTO 3 % (0-6); Hematocrit 25.8 % (37.0-53.0); Hemoglobin 8.4 g/dL (13.5-17.5); IMMATURE GRAN ABSOLUTE AUTO 0.04 K/mm3 (0.00-0.10); IMMATURE GRAN PERCENT AUTO 0 % (0-1); LYMPHOCYTES ABSOLUTE AUTO 0.24 K/mm3 (0.84-5.20); LYMPHOCYTES PERCENT AUTO 2 % (21-46); MONOCYTES ABSOLUTE AUTO 0.74 K/mm3 (0.16-1.47); MONOCYTES PERCENT AUTO 6 % (4-13); Mean Corpuscular HGB 30.9 pg (26.0-34.0); Mean Corpuscular HGB Conc 32.6 g/dL (31.5-36.5); Mean Corpuscular Volume 95 fL (80-100); Mean Platelet Volume 11.3 fL (9.1-12.4); NEUTROPHILS ABSOLUTE AUTO 10.46 K/mm3 (1.96-9.15); NEUTROPHILS PERCENT AUTO 89 % (41-73); Platelet Count 256 K/mm3 (150-400); RDW Coefficient Variation 16.4 % (11.7-14.2); RDW Standard Deviation 55.8 fL (35.1-46.3); Red Blood Cell Count 2.72 M/mm3 (4.30-5.90)
[2019-03-01 05:50] LABS: Albumin, Blood 2.6 g/dL (3.4-5.0); Anion Gap 10 mmol/L (6-16); Blood Urea Nitrogen 198 mg/dL (8-24); Bun/Creatinine Ratio 47.4 (12.0-20.0); CO2, Blood 29 mmol/L (21-32); Calcium, Blood 8.2 mg/dL (8.5-10.1); Chloride, Blood 98 mmol/L (98-108); Creatinine, Blood 4.18 mg/dL (0.60-1.20); Glomerular Filtration Rate 15 (60-); Glucose, Blood 152 mg/dL (70-99); Phosphorus, Blood 6.9 mg/dL (2.5-4.9); Potassium, Blood 2.9 mmol/L (3.5-5.5); Sodium, Blood 137 mmol/L (136-145)
--- NOTE | 2019-03-01 06:14 | NUR ---
SHIFT SUMMARY A/O, ABLE TO MAKE NEEDS KNOWN. COOPERATIVE WITH CARE. ANSWERS QUESTIONS APPROPRIATELY. NO C/O PAIN/DISCOMFORT. BED REST WITH REPOSITIONING PATIENT ALLOWED. BM DARK, THICK, AND PASTY. CREAM APPLIED TO EXCORIATED AREAS DURING BED CHANGES. DESATURATION WHEN ON SIDE. MARIEE PATENT AND DRAINING. CONTINUES WITH PROTONIX INFUSION INFUSING WITHOUT COMPLICATION. PLACED HEEL PROTECTIVE DRESSING TO PRESSURE ULCER ON L HEEL. NO ACUTE CHANGES OVERNIGHT. DID HOLD LANTUS R/T POOR PO INTAKE AND DOCTOR AWARE. VSS/AFEBRILE. BED IN LOWEST POSITION. CALL LIGHT AND BELONGINGS WITHIN REACH. WCTM. REPOR TO ONCOMING RN.
--- NOTE | 2019-03-01 16:28 | NUR ---
PT TO DAY SURG FOR ENDOSCOPY VIA TOPHER, ACCOMPANIED BY
--- NOTE | 2019-03-01 16:37 | NUR ---
History, Chart, Medications and Allergies reviewed before start of procedure. Patient confirms NPO status and agrees with scheduled surgery. Pre-Op teaching done. Pt verbalizes understanding.
--- NOTE | 2019-03-01 16:56 | NUR ---
03/01/19 1652 Diana Tobias [facility] CASE DR. BARBOUR
--- NOTE | 2019-03-01 18:00 | NUR ---
PT RETURNED TO ROOM FROM ENDOSCOPY, TRANSFERRED TO BED USING SLIDER SHEET, REPOSITIONED FOR COMFORT, PROTONIX DRIP AT 10ML PER HOUR RESTARTED. DR CRAIG AT BEDSIDE SPEAKING WITH PATIENT AND HIS
--- NOTE | 2019-03-01 19:15 | NUR ---
PT RESTING, NO C/O PAIN AT THIS TIME, PROTONIX GTT CONTINUES. NO ACUTE CHANGES NOTED, WILL CONTINUE TO MONITOR AND REPORT TO ONCOMING RN
[2019-03-02 01:33] LABS: BASOPHILS ABSOLUTE AUTO 0.02 K/mm3 (0.00-0.23); BASOPHILS PERCENT AUTO 0 % (0-2); EOSINOPHILS ABSOLUTE AUTO 0.12 K/mm3 (0.00-0.68); EOSINOPHILS PERCENT AUTO 1 % (0-6); Hematocrit 26.6 % (37.0-53.0); Hemoglobin 8.3 g/dL (13.5-17.5); IMMATURE GRAN ABSOLUTE AUTO 0.05 K/mm3 (0.00-0.10); IMMATURE GRAN PERCENT AUTO 0 % (0-1); LYMPHOCYTES ABSOLUTE AUTO 0.29 K/mm3 (0.84-5.20); LYMPHOCYTES PERCENT AUTO 2 % (21-46); MONOCYTES ABSOLUTE AUTO 0.57 K/mm3 (0.16-1.47); MONOCYTES PERCENT AUTO 5 % (4-13); Mean Corpuscular HGB Conc 31.2 g/dL (31.5-36.5); Mean Corpuscular Volume 96 fL (80-100); Mean Platelet Volume 11.2 fL (9.1-12.4); NEUTROPHILS ABSOLUTE AUTO 11.11 K/mm3 (1.96-9.15); NEUTROPHILS PERCENT AUTO 91 % (41-73); Platelet Count 225 K/mm3 (150-400); RDW Coefficient Variation 16.1 % (11.7-14.2); RDW Standard Deviation 55.1 fL (35.1-46.3); Red Blood Cell Count 2.77 M/mm3 (4.30-5.90); White Blood Cell Count 12.16 K/mm3 (4.00-11.30)
[2019-03-02 01:34] LABS: Hematocrit 26.7 % (37.0-53.0); Hemoglobin 8.4 g/dL (13.5-17.5)
[2019-03-02 01:52] LABS: Magnesium, Blood 2.2 mg/dL (1.6-2.4)
[2019-03-02 01:55] LABS: Albumin, Blood 2.5 g/dL (3.4-5.0); Anion Gap 11 mmol/L (6-16); Blood Urea Nitrogen 189 mg/dL (8-24); Bun/Creatinine Ratio 49.9 (12.0-20.0); CO2, Blood 29 mmol/L (21-32); Calcium, Blood 8.2 mg/dL (8.5-10.1); Chloride, Blood 100 mmol/L (98-108); Creatinine, Blood 3.79 mg/dL (0.60-1.20); Glomerular Filtration Rate 17 (60-); Glucose, Blood 180 mg/dL (70-99); Phosphorus, Blood 6.4 mg/dL (2.5-4.9); Sodium, Blood 140 mmol/L (136-145)
--- NOTE | 2019-03-02 07:51 | NUR ---
SHIFT SUMMARY PATIENT IS ALERT AND ORIENTED. IS A TWO PERSON TURN. INCONTINENT OF STOOL, STOOL IS DARK AND TARRY LOOKING. PATIENT COMPLAINED OF ABDOMINAL PAIN THRUOGHOUT THE NIGHT, WAS DRY HEAVING. TRIED GIVING ZOFRAN WITH NO RELIEF. REGLAN GAVE PATIENT SOME RELIEF. PATIENT DID NOT SLEEP MUCH AT ALL. ENCOURAGED PATIENT TO HOLD OFF ON EATING OR DRINKING WHILE HIS STOMACH WAS UPSET. NO OTHER CHANGES. VITALS STABLE.
--- NOTE | 2019-03-02 19:12 | NUR ---
PT UP TO CHAIR USING CHERYLFT, TOLERATED WELL, NO ACUTE CHANGES NOTED THIS SHIFT, NO C/O PAIN OR NAUSEA, WILL CONTINUE TO MONITOR AND REPORT TO ONCOMING RN
[2019-03-03 05:37] LABS: Hematocrit 25.9 % (37.0-53.0)
[2019-03-03 05:54] LABS: Albumin, Blood 2.5 g/dL (3.4-5.0); Anion Gap 10 mmol/L (6-16); CO2, Blood 28 mmol/L (21-32); Calcium, Blood 8.4 mg/dL (8.5-10.1); Chloride, Blood 101 mmol/L (98-108); Creatinine, Blood 3.49 mg/dL (0.60-1.20); Glomerular Filtration Rate 18 (60-); Glucose, Blood 229 mg/dL (70-99); Magnesium, Blood 2.1 mg/dL (1.6-2.4); Phosphorus, Blood 4.7 mg/dL (2.5-4.9); Potassium, Blood 3.2 mmol/L (3.5-5.5); Sodium, Blood 139 mmol/L (136-145)
--- NOTE | 2019-03-03 06:01 | NUR ---
SHIFT SUMMARY: BARBARA HAD HIS BY HIS SIDE ALL NIGHT ASSISTING IN HIS CARE. HE GOT UP TO THE SIDE OF THE BED AT BEGINNING OF THE SHIFT AND DANGLED FOR THREE MINUTES. THEN HE GOT BACK INTO BED. WANTED TO SEE HOW HIS OXYGEN WENT ON RA. THEREFORE WE REMOVED IT AND HE REMAINED IN THE 89-92%, ON 2 LITERS HE STAYED IN THE UPPER LEVELS OF THE 990'S. WHEN HE MOVED OR TALKED HE TEND TO DROP TO 97%. ONCE IN BED HE PLACED OXYGEN ON. MEDS WERE GIVEN PER EMAR, IV CONTINUED TO INFUSE WITH OUT DIFFICULTY. CREAMS APPLIED TO RASH ON BODY, AND TO SORE ON BUTTOCKS AND SKIN FOLD. NO OTHER ACUTE CHANGES OCCURED THIS SHIFT, WILL REPORT TO DAY SHIFT RN.
[2019-03-03 06:22] LABS: Blood Urea Nitrogen 158 mg/dL (8-24); Bun/Creatinine Ratio 45.3 (12.0-20.0)
--- NOTE | 2019-03-03 16:41 | NUR ---
PER DR LAU HE PLANS ON DISCHARGING PT HOME WITH HOME HEALTH THIS EVENING. SPOKE WITH PT AND SPOUSE WHO BOTH ARE OK WITH PT DISCHARGING HOME EVEN THOUGH HE WAS ONLY ABLE TO STAND FOR A SHORT PERIOD OF TIME WITH THERAPY TODAY. THEY REPORT THEY HAVE HELP AT HOME AND LONG THE TRANSPORT CAN ASSIST INTO THE BED THEY WILL BE FINE. PER DR LAU KEEP MARIEE IN PLACE UPON DISCHARGE AT THIS TIME. CURRENTLY AWAITING D/C ORDERS.
--- NOTE | 2019-03-03 17:21 | NUR ---
CLINICAL RESOURCE DIRECTOR ATTEMPTED TO CALL [facility] FOR TRANSPORT, PER [facility] WILL NOT PAY FOR TRANSPORT. SHE SPOKE WITH [facility] FOR OUT OF POCKET COSTS. AWAITING FOR SPOUSE TO CALL BACK TO [place] BEING BILLED. CLARIFICATIONS CALLED TO DR LAU REGARDING DIFULCAN AND PROTONIX. PER DR LAU HE WAS STOPPING DIFLUCAN PT HAS CPOMPLETED COURSE. PROTONIX CAN BE CHANGED TO 40 MG PO BID.
[2019-03-03] MEDS ORDERED: PANT40 PO (17:47)
--- NOTE | 2019-03-03 17:47 | NUR ---
RX FAXED TO [facility] PER PT REQUEST. [facility] ATTN BRITT BLAKELY [phone] FAXED WITH ORDERS WELL PROGRESS NOTES PER PT SPOUSE REQUEST. PT TO D/C HOME TO RESUME HOME HEALTH, SPOUSE REPOTRS THEY USE [facility].
--- NOTE | 2019-03-03 18:07 | NUR ---
SPOKE TO PT SPOUSE. [facility] FOR PERSONAL PAY W/C TRANSPORT, SPOUSE AND SON IN LAW TO ASSIST WITH TRANSFER INTO BED AT HOME. [facility]SPORT CALLED. AWAITING TRANSPORT. PG DC'D INTACT. DISCHARGE INSTRUCTIONS CALLED TO SPOUSE AND DISCUSSED WITH PT.
--- NOTE | 2019-03-03 18:40 | NUR ---
PT DC/D HOME VIA [facility] W/C. SPOUSE AND FAMILY AT HOME AWAITING. DC'D AT 1738. MARIEE KEPT IN PLACE, MARIEE CATH CARE GIVEN.
== END 2019-03-03 18:41 | disposition home health service (06) | DRG 377 ==
LOC: ER 10:05 → MEDS 14:47 → ENPENDDIS 03-03 16:55 → MEDS 03-03 18:41
PROVIDERS: Emergency Medicine; Internal Medicine; Internal Medicine Gastroenterology; Internal Medicine Nephrology; ADMIT Student in an Organized Health Care Education/Training Program
PROC: 0W3P8ZZ Control Bleeding in Gastrointestinal Tract, Via Natural or Artificial Opening Endoscopic (ICD-10-PCS; principal; 2019-03-01 15:00)
DX: K92.2 Gastrointestinal hemorrhage, unspecified (principal); I50.43 Acute on chronic combined systolic (congestive) and diastolic (congestive) heart failure; I13.0 Hypertensive heart and chronic kidney disease with heart failure and stage 1 through stage 4 chronic kidney disease, or unspecified chronic kidney disease; Z68.43 Body mass index [BMI] 50.0-59.9, adult; N17.9 Acute kidney failure, unspecified; N39.0 Urinary tract infection, site not specified; E87.1 Hypo-osmolality and hyponatremia; D62 Acute posthemorrhagic anemia; G47.33 Obstructive sleep apnea (adult) (pediatric); J44.9 Chronic obstructive pulmonary disease, unspecified; E11.22 Type 2 diabetes mellitus with diabetic chronic kidney disease; I25.2 Old myocardial infarction; I25.10 Atherosclerotic heart disease of native coronary artery without angina pectoris; Z89.422 Acquired absence of other left toe(s); Z87.891 Personal history of nicotine dependence; Z66 Do not resuscitate; Z79.4 Long term (current) use of insulin; R33.8 Other retention of urine; E21.3 Hyperparathyroidism, unspecified; E83.41 Hypermagnesemia; E88.09 Other disorders of plasma-protein metabolism, not elsewhere classified; E86.1 Hypovolemia; E87.70 Fluid overload, unspecified; E87.6 Hypokalemia; K22.8 Other specified diseases of esophagus; E11.65 Type 2 diabetes mellitus with hyperglycemia; N18.3 Chronic kidney disease, stage 3 (moderate)
CPT/HCPCS: 36415; 36430; 51702; 51798; 71045; 76770; 80053; 80069; 81001; 82272; 82330; 82947; 83735; 85014; 85018; 85025; 85610; 85730; 86850; 86900; 86901; 86923; 87086; 93005; 93010; 94660; 94760; 94762; 96365-59; 96366-59; 96368; 96376-59; 97110; 97163; 97164; 97166; 97530; 99285-25; A9270; C9113; J0696; J0881; J2704; J2765; J3480; J7030; J7050; J7120; P9016

== ENCOUNTER 2019-03-16 10:01 | Inpatient (IN) | payer OTHER ==
[~2019-03-16] VITALS: Ht 175.3 cm; Wt 149.5 kg
[~2019-03-16 10:01] MED LIST changes: +ACET325 PO; +ALBU3IS INH; +ALLO100 PO; +ASCO500 PO; +ATORVASTATIN CA80 MG PO; +Bumetanide2 MG PO; +CARV25 PO; +CLON.1 PO; +CLOP75 PO; +Colace100 MG PO; +EPOETIN ALFA SC; +FINA5 PO; +FISH OIL 1,2001 EACH PO; +Fergon240 M1 PO; +GABA300 PO; +INSDET100 SC; +KETO15TC TOP; +LACT PO; +NITR.4SL SL; +NOVOLOG FL100 UNIT/1 SC; +PANT40 PO; +Paxil40 MG PO; +STRIVERDI RESPIM4 GM INH; +TAMS.4ER PO; +TRIDERM28.4 GM TOP; +VANICREAM453 GM TOP; +VITAMIN D31000 UNIT PO
[2019-03-16 11:22] LABS: BASOPHILS ABSOLUTE AUTO 0.01 K/mm3 (0.00-0.23); BASOPHILS PERCENT AUTO 0 % (0-2); EOSINOPHILS ABSOLUTE AUTO 0.01 K/mm3 (0.00-0.68); EOSINOPHILS PERCENT AUTO 0 % (0-6); Hematocrit 26.3 % (37.0-53.0); Hemoglobin 8.1 g/dL (13.5-17.5); IMMATURE GRAN ABSOLUTE AUTO 0.04 K/mm3 (0.00-0.10); IMMATURE GRAN PERCENT AUTO 1 % (0-1); LYMPHOCYTES PERCENT AUTO 3 % (21-46); MONOCYTES ABSOLUTE AUTO 0.42 K/mm3 (0.16-1.47); MONOCYTES PERCENT AUTO 5 % (4-13); Mean Corpuscular HGB 29.7 pg (26.0-34.0); Mean Corpuscular HGB Conc 30.8 g/dL (31.5-36.5); Mean Corpuscular Volume 96 fL (80-100); Mean Platelet Volume 11.8 fL (9.1-12.4); NEUTROPHILS ABSOLUTE AUTO 7.28 K/mm3 (1.96-9.15); NEUTROPHILS PERCENT AUTO 92 % (41-73); Platelet Count 215 K/mm3 (150-400); RDW Coefficient Variation 15.9 % (11.7-14.2); RDW Standard Deviation 54.3 fL (35.1-46.3); Red Blood Cell Count 2.73 M/mm3 (4.30-5.90); White Blood Cell Count 7.96 K/mm3 (4.00-11.30)
[2019-03-16 11:44] LABS: Albumin, Blood 2.5 g/dL (3.4-5.0); Albumin/Globulin Ratio 0.7 (0.8-1.8); Bilirubin, Total 0.4 mg/dL (0.1-1.0); Bun/Creatinine Ratio 36.2 (12.0-20.0); Calcium, Blood 8.4 mg/dL (8.5-10.1); Creatinine, Blood 4.48 mg/dL (0.60-1.20); Globulin, Blood 3.4 g/dL (2.2-4.0); Potassium, Blood 5.6 mmol/L (3.5-5.5); Total Protein, Blood 5.9 g/dL (6.4-8.2)
[2019-03-16 11:52] LABS: Source, Urine Catheter
[2019-03-16 12:01] LABS: Appearance, Urine Hazy (Clear); Bilirubin, Urine Neg (Neg); Blood, Urine 5+ (Neg); Color, Urine Yellow (P-Yellow); Glucose Qualitative, Urine Neg (Neg); Ketones, Urine 1+ (Neg); Leukocyte Esterase, Urine 3+ (Neg); Nitrite, Urine Neg (Neg); Protein, Urine 3+ (Neg); Urobilinogen, Urine NORM (Normal)
[2019-03-16 12:27] LABS: Bacteria Mod /hpf; Red Blood Cells, Urine 25-50 /hpf (0-2); Squamous Epithelial Cells Few /hpf (Few); Transitional Epithelial Cells Few /hpf (0-Rare)
[2019-03-16 12:28] LABS: Amorphous Mod (0-Heavy)
--- NOTE | 2019-03-16 18:51 | NUR ---
SHIFT SUMMARY PATIENT PLEASANT, NO ACUTE CONCERNS AT THIS TIME. HE IS MILDLY CONFUSED. OBESE. MILD TREMORS NOTED.
--- NOTE | 2019-03-17 04:31 | NUR ---
SHIFT SUMMARY: 73 Y/O MORBID OBESE MALE RESTED COMFORTABLY ALL SHIFT AND REQUIRED REPOSITIONING Q2H VIA STAFF, AT SIDE AND SUPPORTIVE, ENTIRE BODY RED WITH SCALLY SKIN NOTED IN ABDOMINAL FOLDS, ALERT AND ORIENTED X 4, CONTACT ISOLATION MAINTAINED FOR MRSA (SWABS SENT TO LAB), LEFT ANKLE HAS STAGE III ULCER WITH MEPLEX DRESSING APPLIED (SEE PHOTO), MARIEE DRAINING CLEAR YELLOW FLUID, DENIES PAIN OR NAUSEA, BED LOW POSITION, CALL LIGHT AT SIDE.
[2019-03-17 04:48] LABS: BASOPHILS ABSOLUTE AUTO 0.01 K/mm3 (0.00-0.23); BASOPHILS PERCENT AUTO 0 % (0-2); EOSINOPHILS PERCENT AUTO 0 % (0-6); Hematocrit 27.9 % (37.0-53.0); Hemoglobin 8.7 g/dL (13.5-17.5); IMMATURE GRAN ABSOLUTE AUTO 0.02 K/mm3 (0.00-0.10); IMMATURE GRAN PERCENT AUTO 0 % (0-1); LYMPHOCYTES ABSOLUTE AUTO 0.12 K/mm3 (0.84-5.20); LYMPHOCYTES PERCENT AUTO 2 % (21-46); MONOCYTES ABSOLUTE AUTO 0.09 K/mm3 (0.16-1.47); MONOCYTES PERCENT AUTO 2 % (4-13); Mean Corpuscular HGB 29.3 pg (26.0-34.0); Mean Corpuscular HGB Conc 31.2 g/dL (31.5-36.5); Mean Corpuscular Volume 94 fL (80-100); Mean Platelet Volume 11.3 fL (9.1-12.4); NEUTROPHILS ABSOLUTE AUTO 5.73 K/mm3 (1.96-9.15); NEUTROPHILS PERCENT AUTO 96 % (41-73); NRBC ABSOLUTE 0.02 K/mm3 (0.00-0.02); NRBC Auto 0.3 /100 WBC (0.0-0.2); Platelet Count 247 K/mm3 (150-400); RDW Coefficient Variation 15.9 % (11.7-14.2); RDW Standard Deviation 53.3 fL (35.1-46.3); Red Blood Cell Count 2.97 M/mm3 (4.30-5.90); White Blood Cell Count 5.97 K/mm3 (4.00-11.30)
[2019-03-17 05:12] LABS: Albumin, Blood 2.6 g/dL (3.4-5.0); Albumin/Globulin Ratio 0.7 (0.8-1.8); Bilirubin, Total 0.4 mg/dL (0.1-1.0); Calcium, Blood 8.6 mg/dL (8.5-10.1); Creatinine, Blood 4.69 mg/dL (0.60-1.20); Globulin, Blood 3.7 g/dL (2.2-4.0); Potassium, Blood 5.6 mmol/L (3.5-5.5); Total Protein, Blood 6.3 g/dL (6.4-8.2)
[2019-03-17 05:38] LABS: Bun/Creatinine Ratio 34.3 (12.0-20.0); Phosphorus, Blood 8.3 mg/dL (2.5-4.9)
[2019-03-17 16:59] LABS: Bun/Creatinine Ratio 38.3 (12.0-20.0); Calcium, Blood 8.6 mg/dL (8.5-10.1); Creatinine, Blood 4.54 mg/dL (0.60-1.20); Potassium, Blood 5.3 mmol/L (3.5-5.5)
--- NOTE | 2019-03-17 18:07 | NUR ---
SHIFT SUMMARY AWAITING PLACEMENT OF A MAHURKAR CATHETER BY THE MANAGER OUTREACH AT THIS TIME. DR. CONROY IS ON HER WAY TO PLACE THE CATHETER AND PATIENT WILL HAVE HIS FIRST DIALYSIS TREATMENT THIS EVENING. LITOENLTClint THE PATIENT IS PLEASANT, BUT MILDLY WORRIED. TALKED WITH THE PATIENT ABOUT HIS PROCEDURE.
--- NOTE | 2019-03-17 19:08 | NUR ---
HD 1:1 NON-ROUTINE HOURS HEMPDIALYSIS TREATMENT ORDERED BY DR WOODS FOR PATIENT WITH ELEVATED BUN AND CREATININE WITH RESULTING MENTAL CONFUSION. NEW R IJ TEMPORARY CVC PLACED BY DR MCKENZIE AND CONFIRMED BY XRAY.
--- NOTE | 2019-03-18 01:34 | NUR ---
1900 PT RECEIVED BEDSIDE DIALYSIS TONIGHT AFTER PORT PLACED IN RIGHT UPPER NECK BY . ALL LATE AFTERNOON MEDS WERE HELD. 2330 PT NOTED TO BE PICKING AT RIGHT UPPER NECK DIALYSIS PORT DRESSING, SITE WRAPPED WITH KERLIX AROUND NECK (LOOSE), AT SIDE, WEARING C-PAP.
[2019-03-18 05:04] LABS: BASOPHILS ABSOLUTE AUTO 0.01 K/mm3 (0.00-0.23); BASOPHILS PERCENT AUTO 0 % (0-2); EOSINOPHILS PERCENT AUTO 0 % (0-6); IMMATURE GRAN ABSOLUTE AUTO 0.03 K/mm3 (0.00-0.10); IMMATURE GRAN PERCENT AUTO 0 % (0-1); LYMPHOCYTES ABSOLUTE AUTO 0.22 K/mm3 (0.84-5.20); LYMPHOCYTES PERCENT AUTO 3 % (21-46); MONOCYTES ABSOLUTE AUTO 0.71 K/mm3 (0.16-1.47); MONOCYTES PERCENT AUTO 9 % (4-13); Mean Corpuscular HGB 29.3 pg (26.0-34.0); Mean Corpuscular Volume 95 fL (80-100); Mean Platelet Volume 11.5 fL (9.1-12.4); NEUTROPHILS ABSOLUTE AUTO 6.64 K/mm3 (1.96-9.15); NEUTROPHILS PERCENT AUTO 87 % (41-73); Platelet Count 243 K/mm3 (150-400); RDW Coefficient Variation 16.4 % (11.7-14.2); RDW Standard Deviation 54.3 fL (35.1-46.3); Red Blood Cell Count 3.07 M/mm3 (4.30-5.90); White Blood Cell Count 7.61 K/mm3 (4.00-11.30)
[2019-03-18 05:23] LABS: Albumin, Blood 2.8 g/dL (3.4-5.0); Anion Gap 14 mmol/L (6-16); Blood Urea Nitrogen 115 mg/dL (8-24); Bun/Creatinine Ratio 34.4 (12.0-20.0); CO2, Blood 25 mmol/L (21-32); Calcium, Blood 8.8 mg/dL (8.5-10.1); Chloride, Blood 99 mmol/L (98-108); Creatinine, Blood 3.34 mg/dL (0.60-1.20); Glomerular Filtration Rate 19 (60-); Glucose, Blood 225 mg/dL (70-99); Phosphorus, Blood 5.6 mg/dL (2.5-4.9); Potassium, Blood 4.2 mmol/L (3.5-5.5); Sodium, Blood 138 mmol/L (136-145)
--- NOTE | 2019-03-18 05:34 | NUR ---
SHIFT SUMMARY: 73 Y/O OBESE MALE SLEPT COMFORTABLY ALL SHIFT WITH AT SIDE WHOM IS VERY SUPPORTIVE, DENIES PAIN OR NAUSEA, ALERT AND ORIENTED X 2, UNABLE TO RECALL PAST OR RECENT EVENTS WITHOUT FREQUENT REMINDERS FROM OR NURSING STAFF, PT AT TIMES TENDED TO REMOVE C/PAP OR PLACE HANDS NEAR RIGHT NECK DIALYSIS CATHETER (THIS NURSE COVERED SITE WITH KERLIX WRAPPLED VERY LOOSELY AROUND NECK TO PREVENT PATIENT FROM SCRATCHING OR ATTEMPTS TO REMOVE THIS STERILE DRESSING, MARIEE DRAINING CLEAR YELLOW FLUID, BED LOW POSITION, CALL LIGHT AT SIDE.
--- NOTE | 2019-03-18 15:33 | NUR ---
PATIENT STATUS CHANGE FROM THIS MORNING. PATIENT IS BECOMING MORE CONFUSED, NOTED SOME VISUAL HALLUCINATIONS THIS AM, NOW THE PATIENT IS HAVING AUDITORY AND VISUAL HALLUCINATIONS. CURRENTLY THE PATIENT IS HAVING A LOT OF MUMBLING INCOHERENTLY, NOT WEARING HIS CPAP WHILE SLEEPING. HE STATED "I'M HAVING TROUBLE SEEING". THIS CAUSED SOME CONCERN. SPOKE WITH DR. EDGAR WHO ORDERED A STAT ABG AND ALSO HAS ORDERED SOME MEDICATIONS FOR AGITATION AND THE DISROBING.
[2019-03-18 16:10] LABS: PCO2 Arterial 42.6 mmHg (35-45); PO2 Arterial 66.9 mmHg (80-100); pH Blood Arterial 7.47 (7.35-7.45)
--- NOTE | 2019-03-18 16:43 | NUR ---
Pt visit this afternoon. Pt is resting bed with his eyes closed upon arrival. He brifly opens his eyes with verbal stimulus. With eyes open Pt starts to fidget with his blankets and bedside table then closes them again. Again offered verbal stimuli and Pt opens his eyes long enough to answer orientation questions. Pt is A&Ox3 and is unable to verbalize appropriate current year. Spoke with bedside nurse Lisa and discussed case. Lisa reports Pt's mentation has significantly changed this shift. Lisa reports Pt has been experiencing auditory and visual hallucinations along with some agitation. Order for haloperidol has been received and Lisa reports plan to administer haloperidol. Attempted phone call to Pt's with numbers listed in medical record. Left voice mail on home phone with a request for a return call. Palliative Care will remain available.
[2019-03-18 17:03] LABS: Hemoglobin 8.7 g/dL (13.5-17.5)
[2019-03-18 17:27] LABS: Magnesium, Blood 2.1 mg/dL (1.6-2.4)
[2019-03-18 17:32] LABS: Albumin, Blood 2.7 g/dL (3.4-5.0); Anion Gap 9 mmol/L (6-16); Blood Urea Nitrogen 87 mg/dL (8-24); Bun/Creatinine Ratio 31.1 (12.0-20.0); CO2, Blood 31 mmol/L (21-32); Calcium, Blood 8.4 mg/dL (8.5-10.1); Chloride, Blood 104 mmol/L (98-108); Glomerular Filtration Rate 24 (60-); Glucose, Blood 150 mg/dL (70-99); Potassium, Blood 3.7 mmol/L (3.5-5.5); Sodium, Blood 144 mmol/L (136-145)
--- NOTE | 2019-03-18 20:01 | NUR ---
SHIFT SUMMARY TODAY THE PATIENT STARTED OUT MORE CONFUSED THAN THE LAST TWO DAYS. THE PATIENT'S HAD LEFT BY THE TIME I WAS ABLE TO DO MY ASSESSMENT. THE PATIENT DID NOT KNOW WHY HE WAS IN THE HOSPITAL, THE MONTH, THE YEAR, OR THE PRESIDENT. WHEN DR. EDGAR EVALUATED THE PATIENT THIS AM THE PATIENT WAS ADAMENT THAT IT WAS AND REMEMBERED HAVING A CONVERSATION WITH HIS AND GETTING ANGRY WITH HER THAT HIS BILLS WEREN'T PAID BECAUSE IN HIS MIND AND RECOLLECTION IT WAS . THE PATIENT WAS REDIRECTED AT THIS ITME, AND HE DID NOT UNDERSTAND THAT IT WAS NOT YET ALTHOUGH HE GOT THE YEAR RIGHT WITH THE DOCTOR Fletcher COUNT INCLUDES THE [facility] ROOM. HE THEN BEGAN TO HAVE VISUAL HALLUCINATIONS WHICH WERE REPORTED TO DR. EDGAR AND WE "KEPT AN EYE" ON HIS MENTATION. ONCE HE HAD RETURNED FROM DIALYSIS HE SEEMED TO BE WORSE, LETHARGIC, CONFUSED, HAVING AUDITORY AND VISUAL HALLUCINATIONS. DR. EDGAR WAS ONCE AGAIN ASKED TO EVALUATE THE PATIENT, AT WHICH TIME HE WAS ORDERED A STAT ABG, AND AWAITED RESULTS. WHEN ABG CAME BACK SPOKE WITH DR. EDGAR WHO ORDERED A HEAD CT TO SEE IF THERE WAS ANYTHING MISSED AT THAT POINT. DR. ZARCO WAS ALSO CALLED AND HE ORDERED LABS INCLUDING THE D-DIMER WHICH CAME BACK POSITIVE. ALL RESULTS WERE CALLED BACK TO BOTH PHYSICIANS, DR. ZARCO ORDERED A CTA TO R/O PE TOMORROW MORNING AND ALSO ORDERED A CHEMICAL PROPHYLAXIS, DR. EDGAR WAS NOTIFIED OF THE CURRENT CONCERNS AND THE CHANGE OF MEDICATIONS. CURRENTLY THE PATIENT WAS MOVED TO A LIFT ROOM AND STARTED ON A HEPARIN DRIP, STILL HAVING HALLUCINATIONS AND STRUGGLING MORE WITH HIS AGITATION AND HIS CURRENT MOOD. PATIENT IS ON THE HEPARIN DRIP, HAS HALDOL AVAILABLE, REFUSED TO EAT HIS DINNER, AND WILL BE PASSED OFF TO [facility] FOR FURTHER EVALUATION, ALTHOUGH HE IS AGITATED HE IS ALSO LETHARGIC AND HARD TO WAKE UP.
--- NOTE | 2019-03-19 05:30 | NUR ---
Shift summary: Pt has been able to get some sleep this pm. Pt can follow command and is making sense. Pt is tolerating his cpap at hs all night. Pt's chest is very red all over and it stops at the neck. Legs are red also but not as bad. Benadryl given at hs to help with itching. Pt started on heparin at 30.6 cc hour. Pt to get CTA in am to check for PE , and will go to dialysis afterwards.
[2019-03-19 06:03] LABS: BASOPHILS ABSOLUTE AUTO 0.01 K/mm3 (0.00-0.23); BASOPHILS PERCENT AUTO 0 % (0-2); EOSINOPHILS ABSOLUTE AUTO 0.22 K/mm3 (0.00-0.68); EOSINOPHILS PERCENT AUTO 3 % (0-6); Hematocrit 28.2 % (37.0-53.0); Hemoglobin 8.8 g/dL (13.5-17.5); IMMATURE GRAN ABSOLUTE AUTO 0.04 K/mm3 (0.00-0.10); IMMATURE GRAN PERCENT AUTO 1 % (0-1); LYMPHOCYTES ABSOLUTE AUTO 0.39 K/mm3 (0.84-5.20); LYMPHOCYTES PERCENT AUTO 5 % (21-46); MONOCYTES PERCENT AUTO 13 % (4-13); Mean Corpuscular HGB 29.7 pg (26.0-34.0); Mean Corpuscular HGB Conc 31.2 g/dL (31.5-36.5); Mean Corpuscular Volume 95 fL (80-100); Mean Platelet Volume 11.1 fL (9.1-12.4); NEUTROPHILS ABSOLUTE AUTO 6.87 K/mm3 (1.96-9.15); NEUTROPHILS PERCENT AUTO 80 % (41-73); Platelet Count 196 K/mm3 (150-400); RDW Coefficient Variation 16.8 % (11.7-14.2); RDW Standard Deviation 57.1 fL (35.1-46.3); Red Blood Cell Count 2.96 M/mm3 (4.30-5.90); White Blood Cell Count 8.63 K/mm3 (4.00-11.30)
[2019-03-19 06:19] LABS: Albumin, Blood 2.6 g/dL (3.4-5.0); Anion Gap 9 mmol/L (6-16); Blood Urea Nitrogen 92 mg/dL (8-24); Bun/Creatinine Ratio 29.6 (12.0-20.0); CO2, Blood 31 mmol/L (21-32); Calcium, Blood 8.4 mg/dL (8.5-10.1); Chloride, Blood 106 mmol/L (98-108); Creatinine, Blood 3.11 mg/dL (0.60-1.20); Glomerular Filtration Rate 21 (60-); Glucose, Blood 150 mg/dL (70-99); Magnesium, Blood 2.3 mg/dL (1.6-2.4); Phosphorus, Blood 4.3 mg/dL (2.5-4.9); Potassium, Blood 3.6 mmol/L (3.5-5.5); Sodium, Blood 146 mmol/L (136-145)
--- NOTE | 2019-03-19 12:01 | NUR ---
DIALYSIS PT ARRIVED FROM [facility] AT 1045. DYE USED WITH PROCEDURE.
--- NOTE | 2019-03-19 19:26 | NUR ---
SHIFT SUMMARY: NO ACUTE CHANGES TO REPORT THIS SHIFT. PT A&O; CALM AND COOPERATIVE WITH CARE. NO C/O PAIN THIS SHIFT. CTA THIS SHIFT TO R/O PE; CT NEGATIVE FOR PE; HEPARIN DRIP D/C'd. DIALYSIS THIS SHIFT; PT TOLERATED WELL. O2 @ 3L; CPAP @ NOC. ADMIT FOR ADVERSE DRUG REACTION; SKIN RED T/O; BUE SCALY. REPORT GIVEN TO ONCOMING RN.
--- NOTE | 2019-03-19 21:08 | NUR ---
CALLED TO PT ROOM REGARDING PT PULLING DIALYSIS CATH. FOUND DIALYSIS CATH STILL SECURED WITH SUTURES AND DRSG, BUT IV INFUSION PIG TAIL PT HAD SEVERED THE CLAVE FROM LINE AND LINE HAD CLOTTED OFF. TIED KNOT IN REMAINING LINE AND CLEANSED WITH CHLORHEXIDINE, PAT DRY WITH SERILE 4X4'S AND APPLIED STERIL OCCULSIVE OVER KNOT AND REMAINING PORTION OF LINE. NOTIFIED DIALYSIS NURSE AND INSTRUCTED RN TO NOTIFY MD FOR EVAL.
--- NOTE | 2019-03-19 21:28 | NUR ---
DIVERSITY MANAGER COLOR MAKING SUPERVISORNOE NOTIFIED THAT PT HAD PULLED CLAVES OFF PIGTAIL USED BY RN'S FOR MEDS AND BLOOD DRAWS, DIALYSIS CLAVES IN PLACE AND SUTURE INTACT. CLEANING LABORER TIED OFF IV TUBING USED BY RN'S, STERILIZED WITH CHLORHEXIDINE AND PLACED AN OCCLUSIVE DRESSING OVER LINE, DIALYSIS CLAVES WRAPPED IN 4X4 AND COBAN. COLOR MAKING SUPERVISOR NOTIFIED DR ZARCO, PER DR ZARCO, AN ORDER TO CHECK DIALYSIS CATHETER PLACEMENT VIA CHEST X RAY IN AM.
--- NOTE | 2019-03-20 00:20 | NUR ---
NOTIFIED DALIA LOCKE ABOUT PT PULLING IV PIGTAIL CLAVE OFF. SHE SAID TO NOTIFY LITIGATION LEGAL ASSISTANT.NOTIFIED INSTRUMENT REPAIR SPECIALIST AND SHE NOTIFIED PAINT ROLLER ASSEMBLER AND DR ZARCO. (SEE PREVIOUS NOTE)
[2019-03-20 03:07] LABS: HBSAG SCREEN Negative (Negative); HEP A AB, IGM Negative (Negative); HEP B CORE AB, IGM Negative (Negative); HEP C VIRUS AB <0.1 (0.0-0.9)
[2019-03-20 03:38] LABS: Creatinine, Urine Random 99.2 mg/dL (27.00-270.00); Eosinophils-Raw #,Urine 0
[2019-03-20 04:04] LABS: Microalb/Creat Ratio UR, Rand 1370.97 mg/g (0.000-30.000)
--- NOTE | 2019-03-20 04:33 | NUR ---
SHIFT SUMMARY PT FORGETFUL CAN GET CONFUSED AT TIMES. 2L O2 NC. AT BEDSIDE T/O NIGHT. C/O PAIN TOOTHACHE AND MEDICATED PER EMAR. WORE CPAP FOR AWHILE WHILE SLEEPING BUT THEN WANTED TO GO BACK TO NC. HE WAS ABLE TO SLEEP ON AND OFF T/O NIGHT, Q2HR TURNS. CALL LIGHT IN REACH.
--- NOTE | 2019-03-20 08:25 | NUR ---
DIALYSIS CALLED LAST NIGHT ABOUT PT PULLING ON IJ CATH. HE PULLED THE CAP OFF OF THE IV LINE. ORDERED XRAY FOR THIS AM. CALLED AND TALKED TO THE RADIOLOGIST AND HE SAID PLACEMENT LOOKED GOOD.
--- NOTE | 2019-03-20 19:26 | NUR ---
SHIFT SUMMARY: NO ACUTE CHANGES TO REPORT THIS SHIFT. PT A&O; LETHARGIC; CALM AND COOPERATIVE WITH CARE. DIALYSIS TODAY; 5.1L OFF; PT TOLERATED WELL. LIFT PT; ON BEDREST. EXPECTED D/C TO HOME c HOME HEALTH ON 03/21. REPORT GIVEN TO ONCOMING RN.
[2019-03-21 05:40] LABS: BASOPHILS ABSOLUTE AUTO 0.01 K/mm3 (0.00-0.23); BASOPHILS PERCENT AUTO 0 % (0-2); EOSINOPHILS PERCENT AUTO 0 % (0-6); Hematocrit 33.5 % (37.0-53.0); Hemoglobin 10.5 g/dL (13.5-17.5); IMMATURE GRAN ABSOLUTE AUTO 0.07 K/mm3 (0.00-0.10); IMMATURE GRAN PERCENT AUTO 1 % (0-1); LYMPHOCYTES ABSOLUTE AUTO 0.65 K/mm3 (0.84-5.20); LYMPHOCYTES PERCENT AUTO 6 % (21-46); MONOCYTES ABSOLUTE AUTO 0.96 K/mm3 (0.16-1.47); MONOCYTES PERCENT AUTO 9 % (4-13); Mean Corpuscular HGB 30.3 pg (26.0-34.0); Mean Corpuscular HGB Conc 31.3 g/dL (31.5-36.5); Mean Corpuscular Volume 97 fL (80-100); NEUTROPHILS ABSOLUTE AUTO 9.42 K/mm3 (1.96-9.15); NEUTROPHILS PERCENT AUTO 85 % (41-73); NRBC ABSOLUTE 0.02 K/mm3 (0.00-0.02); NRBC Auto 0.2 /100 WBC (0.0-0.2); RDW Coefficient Variation 16.7 % (11.7-14.2); RDW Standard Deviation 57.7 fL (35.1-46.3); Red Blood Cell Count 3.47 M/mm3 (4.30-5.90); White Blood Cell Count 11.11 K/mm3 (4.00-11.30)
[2019-03-21 05:53] LABS: Albumin, Blood 2.9 g/dL (3.4-5.0); Anion Gap 10 mmol/L (6-16); Blood Urea Nitrogen 83 mg/dL (8-24); Bun/Creatinine Ratio 24.7 (12.0-20.0); CO2, Blood 31 mmol/L (21-32); Calcium, Blood 8.7 mg/dL (8.5-10.1); Chloride, Blood 99 mmol/L (98-108); Creatinine, Blood 3.36 mg/dL (0.60-1.20); Glomerular Filtration Rate 19 (60-); Glucose, Blood 296 mg/dL (70-99); Magnesium, Blood 2.2 mg/dL (1.6-2.4); Phosphorus, Blood 2.9 mg/dL (2.5-4.9); Potassium, Blood 3.9 mmol/L (3.5-5.5); Sodium, Blood 140 mmol/L (136-145)
[2019-03-21 06:03] LABS: Platelet Count 156 K/mm3 (150-400)
--- NOTE | 2019-03-21 06:33 | NUR ---
SHIFT SUMMARY PT IS A 73 Y/O MALE, ADMITTED FOR AN ALLERGIC REACTION OF AN UNKNOWN ETIOLOGY AT THIS TIME. HE IS A&O X 3, AND ON BEDREST. PT WAS MEDICATED ONCE FOR A TOOTHACHE WITH PRN TRAMADOL. NO COMPLAINTS OF NAUSEA OR SOB. PT'S AM BP WAS LOW AT 88/61. VITALS OTHERWISE STABLE. PT SLEPT WELL DURING THE NIGHT. PT'S DIALYSIS PORT REMAINS IN PLACE, WITH ONE LUMEN MISSING A PORT AND TIED OFF PER DAY SHIFT REPORT. NO OTHER ACUTE CHANGES IN PT CONDITION NOTED DURING THE NIGHT. WILL CONTINUE TO MONITOR AND TREAT PER EMAR UNTIL HAND OFF TO DAY SHIFT RN.
--- NOTE | 2019-03-21 18:14 | NUR ---
PATIENT HAD PERMA CATH PLACED. TEGADERM OVER DRESSING PLACED DUE TO PATIENT SCRATCHING AND TOUCHING PERMA CATH. VITALS WNL. NO ACUTE ISSUES NOTED.
[2019-03-22 05:55] LABS: BASOPHILS ABSOLUTE AUTO 0.01 K/mm3 (0.00-0.23); BASOPHILS PERCENT AUTO 0 % (0-2); EOSINOPHILS PERCENT AUTO 3 % (0-6); Hematocrit 34.4 % (37.0-53.0); Hemoglobin 10.5 g/dL (13.5-17.5); IMMATURE GRAN ABSOLUTE AUTO 0.06 K/mm3 (0.00-0.10); IMMATURE GRAN PERCENT AUTO 1 % (0-1); LYMPHOCYTES ABSOLUTE AUTO 0.57 K/mm3 (0.84-5.20); LYMPHOCYTES PERCENT AUTO 5 % (21-46); MONOCYTES ABSOLUTE AUTO 1.03 K/mm3 (0.16-1.47); MONOCYTES PERCENT AUTO 9 % (4-13); Mean Corpuscular HGB 29.9 pg (26.0-34.0); Mean Corpuscular HGB Conc 30.5 g/dL (31.5-36.5); Mean Corpuscular Volume 98 fL (80-100); Mean Platelet Volume 11.5 fL (9.1-12.4); NEUTROPHILS ABSOLUTE AUTO 10.11 K/mm3 (1.96-9.15); NEUTROPHILS PERCENT AUTO 84 % (41-73); Platelet Count 186 K/mm3 (150-400); RDW Coefficient Variation 16.8 % (11.7-14.2); RDW Standard Deviation 59.5 fL (35.1-46.3); Red Blood Cell Count 3.51 M/mm3 (4.30-5.90); White Blood Cell Count 12.08 K/mm3 (4.00-11.30)
[2019-03-22 06:19] LABS: Albumin, Blood 2.7 g/dL (3.4-5.0); Anion Gap 9 mmol/L (6-16); Blood Urea Nitrogen 71 mg/dL (8-24); Bun/Creatinine Ratio 20.8 (12.0-20.0); CO2, Blood 34 mmol/L (21-32); Calcium, Blood 8.5 mg/dL (8.5-10.1); Chloride, Blood 96 mmol/L (98-108); Creatinine, Blood 3.41 mg/dL (0.60-1.20); Glomerular Filtration Rate 19 (60-); Glucose, Blood 281 mg/dL (70-99); Magnesium, Blood 2.2 mg/dL (1.6-2.4); Phosphorus, Blood 2.7 mg/dL (2.5-4.9); Potassium, Blood 3.7 mmol/L (3.5-5.5); Sodium, Blood 139 mmol/L (136-145)
--- NOTE | 2019-03-22 06:47 | NUR ---
SHIFT SUMMARY PT IS A 73 Y/O MALE, ADMITTED WITH AN ALLERGIC REACTION OF UNKNOWN ETIOLOGY. HE HAD A PERMACATH PLACED YESTERDAY FOR DIALYSIS USE, DRESSING INTACT AND IN PLACE. HE WAS MEDICATED ONCE WITH PRN TRAMADOL FOR A R-SIDE TOOTHACHE. NO COMPLAINTS OF NAUSEA OR SOB. PT'S VITALS STABLE ON 2L OF O2 VIA NC, WITH CPAP USE AT HS WITH 2L BLEED IN. PT'S REMAINED AT BEDSIDE. PT SLEPT WELL DURING THE NIGHT. NO ACUTE CHANGES IN PT CONDITION NOTED. WILL CONTINUE TO MONITOR AND TREAT PER EMAR UNTIL HAND OFF TO DAY SHIFT RN.
[2019-03-22] MEDS ORDERED: Humalog100 UNIT/3 SC (15:26)
[2019-03-22] MEDS ORDERED: Calcium Acetat667 MG PO (15:29)
[2019-03-22] MEDS ORDERED: BENADRYL25 MG PO (15:29)
--- NOTE | 2019-03-22 18:36 | NUR ---
PATIENT DISCHARGED HOME WITH [facility]O. HE FIRST WENT TO DIALYSIS, RECIEVED DIALYSIS THEN WAS TRANSPORTED HOME. FOLLOW UP APPOINTMENTS SCHEDULED. DISCHARGE PAPERS GIVEN TO WITH WITH APPOINTMENT TIMES. MEPILEX TO COCCYX AND HEELS. ENCOURAGED TO ROTATE PATIENT Q2 AND PRN TO HELP WITH PRESSURE POINTS.
--- NOTE | 2019-03-26 01:03 | NUR ---
03/17/19 0253 ORDERING MD WAS ENTERED WRONG. MD SHOULD HAVE BEEN NYASIA EDGAR AND NOT BRIANNA EDGAR (LATE ENTRY 03/26/10 0100).
== END 2019-03-22 15:29 | disposition home health service (06) | DRG 606 ==
LOC: ER 10:01 → MEDS 14:47
PROVIDERS: Emergency Medicine; Internal Medicine Endocrinology, Diabetes & Metabolism; Internal Medicine Nephrology; ADMIT Student in an Organized Health Care Education/Training Program
PROC: 5A1D70Z Performance of Urinary Filtration, Intermittent, Less than 6 Hours Per Day (ICD-10-PCS; principal; 2019-03-19)
PROC: 30233N1 Transfusion of Nonautologous Red Blood Cells into Peripheral Vein, Percutaneous Approach (ICD-10-PCS; 2019-03-19)
DX: R21 Rash and other nonspecific skin eruption (principal); N18.6 End stage renal disease; Z68.41 Body mass index [BMI] 40.0-44.9, adult; I13.2 Hypertensive heart and chronic kidney disease with heart failure and with stage 5 chronic kidney disease, or end stage renal disease; N17.9 Acute kidney failure, unspecified; G47.33 Obstructive sleep apnea (adult) (pediatric); J44.9 Chronic obstructive pulmonary disease, unspecified; I25.2 Old myocardial infarction; Z95.5 Presence of coronary angioplasty implant and graft; Z89.422 Acquired absence of other left toe(s); Z87.891 Personal history of nicotine dependence; E66.01 Morbid (severe) obesity due to excess calories; E11.22 Type 2 diabetes mellitus with diabetic chronic kidney disease; D63.1 Anemia in chronic kidney disease; E87.5 Hyperkalemia; E11.42 Type 2 diabetes mellitus with diabetic polyneuropathy; E11.319 Type 2 diabetes mellitus with unspecified diabetic retinopathy without macular edema; I25.10 Atherosclerotic heart disease of native coronary artery without angina pectoris; Z79.4 Long term (current) use of insulin; Z99.2 Dependence on renal dialysis
CPT/HCPCS: 36415; 36430; 36556; 36558; 36600; 51702; 70450; 71045; 71260; 76770; 76937; 80048; 80053; 80069; 80074; 81001; 82043; 82550; 82570; 82803; 82947; 83735; 84100; 84132; 85014; 85018; 85025; 85379; 85730; 86317; 86850; 86900; 86901; 86923; 87081; 87086; 87205; 94660; 94762; 96360-59; 96361-59; 97110; 97161; 97166; 97530; 99152; 99153; 99285-25; A9270; C1750; C1752; C1769; J0881; J1630; J1644; J1650; J1940; J2250; J2930; J3010; J7030; J7040; P9016; Q0163; Q9967

== ENCOUNTER 2019-03-31 15:33 | Emergency (ER) | payer OTHER ==
[~2019-03-31] VITALS: Ht 170.2 cm; Wt 136.1 kg
[~2019-03-31 15:33] MED LIST changes: +BENADRYL25 MG PO; +Calcium Acetat667 MG PO; +Humalog100 UNIT/3 SC
[2019-03-31 15:45] LABS: Calcium, Ionized (POC) 1.04 mmol/L (1.10-1.46); Chloride (POC) 91 mmol/L (98-108); Creatinine (POC) 3.6 mg/dL (0.8-1.3); Glucose (ISTAT POC) 287 mg/dL (70-99); Hemoglobin (POC) 11.9 g/dL (13.5-17.5); Potassium (POC) 4.7 mmol/L (3.5-5.5); Sodium (POC) 133 mmol/L (135-148); Total CO2 (POC) 30 mmol/L (21-32)
[2019-03-31 15:55] LABS: BASOPHILS ABSOLUTE AUTO 0.04 K/mm3 (0.00-0.23); BASOPHILS PERCENT AUTO 0 % (0-2); EOSINOPHILS ABSOLUTE AUTO 0.53 K/mm3 (0.00-0.68); EOSINOPHILS PERCENT AUTO 5 % (0-6); Hemoglobin 10.7 g/dL (13.5-17.5); IMMATURE GRAN ABSOLUTE AUTO 0.43 K/mm3 (0.00-0.10); IMMATURE GRAN PERCENT AUTO 4 % (0-1); LYMPHOCYTES ABSOLUTE AUTO 1.28 K/mm3 (0.84-5.20); LYMPHOCYTES PERCENT AUTO 12 % (21-46); MONOCYTES ABSOLUTE AUTO 0.72 K/mm3 (0.16-1.47); MONOCYTES PERCENT AUTO 7 % (4-13); Mean Corpuscular HGB 29.5 pg (26.0-34.0); Mean Corpuscular HGB Conc 29.7 g/dL (31.5-36.5); Mean Corpuscular Volume 99 fL (80-100); Mean Platelet Volume 12.5 fL (9.1-12.4); NEUTROPHILS ABSOLUTE AUTO 7.34 K/mm3 (1.96-9.15); NEUTROPHILS PERCENT AUTO 71 % (41-73); Platelet Count 111 K/mm3 (150-400); RDW Coefficient Variation 15.9 % (11.7-14.2); RDW Standard Deviation 58.3 fL (35.1-46.3); Red Blood Cell Count 3.63 M/mm3 (4.30-5.90); White Blood Cell Count 10.34 K/mm3 (4.00-11.30)
[2019-03-31 16:09] LABS: Albumin, Blood 2.3 g/dL (3.4-5.0); Albumin/Globulin Ratio 0.7 (0.8-1.8); Bilirubin, Total 0.4 mg/dL (0.1-1.0); Bun/Creatinine Ratio 13.1 (12.0-20.0); Calcium, Blood 7.7 mg/dL (8.5-10.1); Creatinine, Blood 3.29 mg/dL (0.60-1.20); Globulin, Blood 3.4 g/dL (2.2-4.0); Magnesium, Blood 1.8 mg/dL (1.6-2.4); Potassium, Blood 4.8 mmol/L (3.5-5.5); Total Protein, Blood 5.7 g/dL (6.4-8.2); Troponin I 0.023 ng/mL (0.000-0.040)
[2019-03-31 16:25] LABS: D-Dimer, Quantitative 13.09 mg/L FEU (0.00-0.52); International Normalized Ratio 1.03; Prothrombin Time Results 10.9 Sec (9.7-11.5)
== END 2019-03-31 18:09 ==
LOC: ER 15:33
PROVIDERS: Emergency Medicine
DX: I13.2 Hypertensive heart and chronic kidney disease with heart failure and with stage 5 chronic kidney disease, or end stage renal disease (principal); E11.22 Type 2 diabetes mellitus with diabetic chronic kidney disease; N18.6 End stage renal disease; I50.9 Heart failure, unspecified; I46.8 Cardiac arrest due to other underlying condition; I45.4 Nonspecific intraventricular block; J44.9 Chronic obstructive pulmonary disease, unspecified; G47.30 Sleep apnea, unspecified; Z91.048 Other nonmedicinal substance allergy status; Z79.899 Other long term (current) drug therapy; Z79.4 Long term (current) use of insulin; Z87.891 Personal history of nicotine dependence
CPT/HCPCS: 31500; 71045; 80047; 80053; 83735; 84484; 85014; 85025; 85379; 85610; 85730; 93005; 93010; 94002; 99291-25; J2270; J2704